=== PATIENT | female | born 1960 | race Caucasian/White ===

== ENCOUNTER → 2016-05-19 | Outpatient (CLI) | payer MEDICARE ==
[~2016-05-19] MED LIST: ACET500C PO; ALBUAER3 INH; AMBI10TA PO; BECL80AE3 INH; DIAZ10 PO; ENAL20TA PO; EPIP0.3I SQ; IPRAAER INH; LEVO50TA4 PO; LEXA20TA PO; PHEN100C PO; PRED20 PO; SIMV20TA PO; SIMV40TA PO; TRIL150T PO
== END ==
LOC: PLAB 11:19
PROVIDERS: ATTEND Psychiatry & Neurology Neurology
DX: G40.909 Epilepsy, unspecified, not intractable, without status epilepticus (principal)
CPT/HCPCS: 36415; 80177; 80185; 80186

== ENCOUNTER → 2016-06-28 | Outpatient (CLI) | payer MEDICARE ==
[2016-06-30 19:25] LABS: LEVETIRACETAM 24.4 mcg/mL (12.0 - 46.0)
== END ==
LOC: PLAB 15:09
PROVIDERS: ATTEND Psychiatry & Neurology Neurology
DX: G40.909 Epilepsy, unspecified, not intractable, without status epilepticus (principal)
CPT/HCPCS: 36415; 80177; 80185; 80186

== ENCOUNTER → 2016-10-04 | Outpatient (CLI) | payer MEDICARE | LOC: PLAB 11:32 | PROVIDERS: ATTEND Psychiatry & Neurology Neurology | DX: G40.909 Epilepsy, unspecified, not intractable, without status epilepticus (principal) | CPT/HCPCS: 36415; 80177; 80185 ==

== ENCOUNTER → 2016-12-25 | Outpatient (CLI) | payer MEDICARE | LOC: PLAB 11:45 | PROVIDERS: ATTEND Psychiatry & Neurology Neurology | DX: G40.909 Epilepsy, unspecified, not intractable, without status epilepticus (principal) | CPT/HCPCS: 36415; 80177; 80184; 80185 ==

== ENCOUNTER 2017-04-24 15:34 | Inpatient (IN) | payer MEDICARE, MEDICAID ==
[~2017-04-24] VITALS: Ht 162.6 cm; Wt 116.5 kg
[2017-04-24] VITALS (7 sets, daily range): BP systolic 121–175; BP diastolic 64–106; PULSE 103–126; RESP 16–22; TEMP 97.8–103.1; O2SAT 92–99
[2017-04-24] MEDS ORDERED: SODIUM CHLOR 0.9% 1000 ML INJ 1,000 ML IV ONE ×2 (15:47)
[2017-04-24] MEDS ORDERED: SODIUM CHLOR 0.9% 1000 ML INJ 700 ML IV ONE (15:47)
[2017-04-24] MEDS ORDERED: ACETAMINOPHEN 325 MG TAB PO ONE (16:00)
[2017-04-24] MEDS ORDERED: TETANUS/DIPHTHERIA TOXOID ADULT 0.5 ML VIAL IM ONE (16:00)
--- NOTE | 2017-04-24 16:02 | PD ---
HPI Chief Complaint: General Weakness Time Seen by Provider: 15:38 Travel History International Travel<30 days: No Contact w/Intl Traveler<30days: No Traveled to known affect area: No History of Present Illness HPI The patient is a 57-year-old female who presents emergency department via EMS for lethargy. According to EMS the patient has a one-week history of progressive symptoms including generalized weakness, myalgias, and lethargy. EMS states and route they noted the patient was tachycardic with an elevated temperature of 103. Upon arrival the patient does complain of a dry and mostly nonproductive cough, does have a history of COPD and is on oxygen at home, 4 L via nasal cannula. She also complains of a dry mouth, mild nausea, diarrhea, and body aches. The patient denies any dysuria, frequency, or urgency. She does note a fever with intermittent chills and sweats. Symptoms are moderate without any current alleviating or exacerbating factors. The patient also states she has fallen several times secondary to the weakness, fell earlier today striking the right aspect of her head and sustaining a laceration. She is unsure if there was any loss of consciousness. She also notes bruising to left arm and right arm, but denies any difficulty using the upper extremities. PFSH Past Medical History Asthma: Yes Anxiety: Yes Depression: Yes Cancer: No Cardiovascular Problems: Yes (? SMALL VALVE PROLAPSE--TAKE PROPHYLACTIC AB PRIOR TO DENTISTRY) High Cholesterol: Yes COPD: Yes Diabetes: No Diminished Hearing: No Endocrine: No Gastrointestinal Disorders: Yes (HX OF ULCER 2.5 YRS AGO, HIATAL HERNIA) Genitourinary: No Hepatitis: No Hiatal Hernia: Yes Hypertension: Yes Immune Disorder: No Musculoskeletal: Yes (ARTHRITIS) Neurologic: Yes (PSEUDO CEREBRAL TUMOR, LARGE OPTIC NERVES, BLEEDING AROUND NERVES) Psychiatric: Yes (ANXIETY/DEPRESSION/BIPOLAR) Reproductive: Yes (PARTIALLY PARALYZED RIGHT DIAPHRAGM 2013) Respiratory: Yes (COPD) Immunizations Current: No Thyroid Disease: Yes (HYPOTHYROIDISM) ?: Not Past Surgical History Abdominal Surgery: Yes (APPENDECTOMY) AICD: No Appendectomy: Yes Gynecologic Surgery: Yes (HYSTERECTOMY, SALPINGO OOPHORECTOMY) Hysterectomy: Yes Joint Replacement: No Pacemaker: No Other Surgery: Yes (" brain shunt " August 2012) Social History Alcohol Use: No Tobacco Use: No Substance Use: No Allergies-Medications (Allergen,Severity, Reaction): Coded Allergies: aspirin (Unverified Allergy, Severe, AIRWAY OBSTRUCTION, 10/31/16) citric acid (Unverified Allergy, Intermediate, Diarrhea, 10/31/16) isosorbide (Unverified Allergy, Intermediate, Diarrhea, 10/31/16) milk (Unverified Allergy, Intermediate, Diarrhea, 10/31/16) PATIENT DENIES nitroglycerin (Unverified Allergy, Intermediate, Diarrhea, 10/31/16) nitroprusside sodium (Unverified Allergy, Intermediate, Diarrhea, 10/31/16) Sulfa (Sulfonamide Antibiotics) (Unverified Allergy, Unknown, 10/31/16) PT STATES SHE TAKES DIAMOX THAT HAS SULFA IN IT WITHOUT PROBLEMS Reported Meds & Prescriptions Reported Meds & Active Scripts Active Ambien (Zolpidem Tartrate) 10 Mg Tab 10 Mg PO HS PRN Lexapro (Escitalopram Oxalate) 20 Mg Tab 20 Mg PO DAILY Valium (Diazepam) 10 Mg Tab 10 Mg PO TID PRN Trileptal (Oxcarbazepine) 150 Mg Tab 150 Mg PO BID Reported Phenytoin Extended 200 Mg Cap 200 Mg PO HS Simvastatin 40 Mg Tab 40 Mg PO HS Simvastatin 20 Mg Tab 20 Mg PO DAILY Prednisone 20 Mg Tab 20 Mg PO BID Phenytoin Extended 100 Mg Cap 100 Mg PO DIRECTED 100MG ALTERNATING WITH 200MG (2 CAPSULES) DAILY IN THE AM Levothyroxine (Levothyroxine Sodium) 50 Mcg Tab 50 Mcg PO 100MCG ALLEN Levothyroxine (Levothyroxine Sodium) 50 Mcg Tab 50 Mcg PO MOTUWETHFSA Epipen 2-Yahir Inj (Epinephrine) 0.3 Mg/0.3 Ml Pfpen 0.3 Mg SQ ONCE PRN Enalapril (Enalapril Maleate) 20 Mg Tab 20 Mg PO BID Combivent Respimat Inh (Ipratropium-Albuterol Inh) 20-100 Senior Care/Act Aero 1 Puff INH QID Qvar Inh (Beclomethasone Dipropionate) 80 Mcg/Act Aero 1 Puff INH BID Proair Hfa 8.5 GM Inh (Albuterol Sulfate) 90 Mcg/Act Aer 1 Puff INH Q6HR PRN 108 mcg/actuation Review of Systems Except as stated in HPI: all other systems reviewed are Neg General / Constitutional: Positive: Fever, Chills HENT: Positive: Headaches, No: Neck Pain Cardiovascular: No: Chest Pain or Discomfort Respiratory: Positive: Cough, Wheezing (history of COPD), No: Shortness of Breath Gastrointestinal: Positive: Nausea, Diarrhea, No: Vomiting, Abdominal Pain Genitourinary: No: Dysuria Musculoskeletal: Positive: Myalgias, Weakness Skin: No Rash Physical Exam Narrative GENERAL: Awake, somewhat lethargic 57-year-old female who appears her stated age. SKIN: Focused skin assessment warm/dry. Few small areas of ecchymosis noted on the left upper extremity posterior right upper extremity. HEAD: 3 cm transverse laceration above the right eyelid with no acute bleeding.. EYES: Pupils equal and round. 3 mm is bilateral and reactive. ENT: No nasal bleeding or discharge. Mucous membranes pink and moist. NECK: Trachea midline. No JVD. CARDIOVASCULAR: Regular, tachycardic with a heart rate of 125. RESPIRATORY: No accessory muscle use. Clear to auscultation. Breath sounds equal bilaterally. GASTROINTESTINAL: Abdomen soft, non-tender, nondistended. Obese, no guarding or rigidity. MUSCULOSKELETAL: No obvious deformities. No clubbing. No cyanosis. No edema. Back: No CVA tenderness. No visible ecchymosis of the lumbar thoracic region. NEUROLOGICAL: Awake, somewhat lethargic. Oriented to person, place, month, year , and college physics instructor. Nonfocal. PSYCHIATRIC: Appropriate mood and affect; insight and judgment normal. Data Data Last Documented VS Vital Signs Date Time Temp Pulse Resp B/P (MAP) Pulse Ox O2 Delivery O2 Flow Rate FiO2 04/24/17 16:52 97 Nasal Cannula 4.00 04/24/17 15:49 103.1 126 22 175/106 (129) Orders Orders Sepsis Workup Initiated (04/24/17 ) Electrocardiogram (04/24/17 15:47) Complete Blood Count With Diff (04/24/17 15:47) Comprehensive Metabolic Panel (04/24/17 15:47) Prothrombin Time / Inr (Pt) (04/24/17 15:47) Act Partial Throm Time (Ptt) (04/24/17 15:47) Lactic Acid Sepsis Protocol (04/24/17 15:47) Magnesium (Mg) (04/24/17 15:47) Ckmb (Isoenzyme) Profile (04/24/17 15:47) Troponin I (04/24/17 15:47) Urinalysis - C+S If Indicated (04/24/17 15:47) Influenzae A/B Antigen (04/24/17 15:47) Blood Culture (04/24/17 15:47) Chest, Single Ap (04/24/17 15:47) Blood Gas Venous (Vbg) (04/24/17 15:47) Blood Glucose (04/24/17 15:47) Ecg Monitoring (04/24/17 15:47) Iv Access Insert/Monitor (04/24/17 15:47) Cath For Specimen (04/24/17 15:47) Oximetry (04/24/17 15:47) Oxygen Administration (04/24/17 15:47) Acetaminophen (Tylenol) (04/24/17 16:00) Ct Brain W/O Iv Contrast(Rout) (04/24/17 15:47) Sodium Chlor 0.9% 1000 Ml Inj (Ns 1000 M (04/24/17 15:47) Sodium Chlor 0.9% 1000 Ml Inj (Ns 1000 M (04/24/17 15:47) Sodium Chlor 0.9% 1000 Ml Inj (Ns 1000 M (04/24/17 15:47) Tetanus/Diphtheria Tox Adult (Tetanus/Di (04/24/17 16:00) Urine Culture (04/24/17 16:15) CKMB (04/24/17 16:10) CKMB% (04/24/17 16:10) Piperacil-Tazo 4.5 Gm Premix (Zosyn 4.5 (04/24/17 17:45) Admit Order (Ed Use Only) (04/24/17 18:05) Labs Laboratory Tests Test 04/24/17 15:56 04/24/17 16:10 04/24/17 16:15 Blood Gas Puncture Site IV IN L HAND Blood Gas Patient Temperature 98.6 Venous Blood pH 7.30 Venous Blood Partial Pressure CO2 52 mmHg Venous Blood Partial Pressure O2 19 mmHg Venous Blood HCO3 25 mmol/L Venous Blood Oxygen Saturation 29 % Venous Blood Oxygen Content 5.1 Vol % Venous Blood Base Excess -1.1 mmol/L Oxygen Delivery Device NASAL CANNULA Blood Gas Liter Flow 3.5 L/M White Blood Count 19.5 TH/MM3 Red Blood Count 4.09 MIL/MM3 Hemoglobin 12.1 GM/DL Hematocrit 36.6 % Mean Corpuscular Volume 89.5 FL Mean Corpuscular Hemoglobin 29.5 PG Mean Corpuscular Hemoglobin Concent 33.0 % Red Cell Distribution Width 13.6 % Platelet Count 163 TH/MM3 Mean Platelet Volume 9.5 FL Neutrophils (%) (Auto) 85.3 % Lymphocytes (%) (Auto) 2.9 % Monocytes (%) (Auto) 11.7 % Eosinophils (%) (Auto) 0.0 % Basophils (%) (Auto) 0.1 % Neutrophils # (Auto) 16.6 TH/MM3 Lymphocytes # (Auto) 0.6 TH/MM3 Monocytes # (Auto) 2.3 TH/MM3 Eosinophils # (Auto) 0.0 TH/MM3 Basophils # (Auto) 0.0 TH/MM3 CBC Comment AUTO DIFF Differential Total Cells Counted 100 Neutrophils % (Manual) 60 % Band Neutrophils % 26 % Lymphocytes % 5 % Monocytes % 9 % Neutrophils # (Manual) 16.8 TH/MM3 Differential Comment FINAL DIFF MANUAL Dohle Bodies PRESENT Platelet Estimate NORMAL Platelet Morphology Comment ENLARGED Prothrombin Time 10.9 SEC Prothromb Time International Ratio 1.1 RATIO Activated Partial Thromboplast Time 29.9 SEC Blood Urea Nitrogen 38 MG/DL Creatinine 2.56 MG/DL Random Glucose 91 MG/DL Total Protein 7.3 GM/DL Albumin 2.4 GM/DL Calcium Level 7.8 MG/DL Magnesium Level 1.9 MG/DL Alkaline Phosphatase 117 U/L Aspartate Amino Transf (AST/SGOT) 86 U/L Alanine Aminotransferase (ALT/SGPT) 28 U/L Total Bilirubin 0.9 MG/DL Sodium Level 128 MEQ/L Potassium Level 5.8 MEQ/L Chloride Level 96 MEQ/L Carbon Dioxide Level 21.9 MEQ/L Anion Gap 10 MEQ/L Estimat Glomerular Filtration Rate 19 ML/MIN Lactic Acid Level 1.1 mmol/L Total Creatine Kinase 806 U/L Troponin I LESS THAN 0.02 NG/ML Urine Color YELLOW Urine Turbidity CLOUDY Urine pH 6.0 Urine Specific [place] 1.018 Urine Protein 300 mg/dL Urine Glucose (UA) NEG mg/dL Urine Ketones 10 mg/dL Urine Occult Blood MOD Urine Nitrite NEG Urine Bilirubin NEG Urine Urobilinogen LESS THAN 2.0 MG/DL Urine Leukocyte Esterase SMALL Urine RBC 11 /hpf Urine WBC 17 /hpf Urine WBC Clumps RARE Urine Squamous Epithelial Cells 2 /hpf Urine Bacteria MOD /hpf Microscopic Urinalysis Comment CULTURE INDICATED MDM Medical Decision Making Medical Screen Exam Complete: Yes Emergency Medical Condition: Yes Medical Record Reviewed: Yes Interpretation(s) EKG reveals sinus tachycardia with a heart rate of 125. Q wave noted in lead 3 and aVF. Laboratory Tests Test 04/24/17 15:56 04/24/17 16:10 04/24/17 16:15 Blood Gas Puncture Site IV IN L HAND Blood Gas Patient Temperature 98.6 Venous Blood pH 7.30 Venous Blood Partial Pressure CO2 52 mmHg Venous Blood Partial Pressure O2 19 mmHg Venous Blood HCO3 25 mmol/L Venous Blood Oxygen Saturation 29 % Venous Blood Oxygen Content 5.1 Vol % Venous Blood Base Excess -1.1 mmol/L Oxygen Delivery Device NASAL CANNULA Blood Gas Liter Flow 3.5 L/M White Blood Count 19.5 TH/MM3 Red Blood Count 4.09 MIL/MM3 Hemoglobin 12.1 GM/DL Hematocrit 36.6 % Mean Corpuscular Volume 89.5 FL Mean Corpuscular Hemoglobin 29.5 PG Mean Corpuscular Hemoglobin Concent 33.0 % Red Cell Distribution Width 13.6 % Platelet Count 163 TH/MM3 Mean Platelet Volume 9.5 FL Neutrophils (%) (Auto) 85.3 % Lymphocytes (%) (Auto) 2.9 % Monocytes (%) (Auto) 11.7 % Eosinophils (%) (Auto) 0.0 % Basophils (%) (Auto) 0.1 % Neutrophils # (Auto) 16.6 TH/MM3 Lymphocytes # (Auto) 0.6 TH/MM3 Monocytes # (Auto) 2.3 TH/MM3 Eosinophils # (Auto) 0.0 TH/MM3 Basophils # (Auto) 0.0 TH/MM3 CBC Comment AUTO DIFF Prothrombin Time 10.9 SEC Prothromb Time International Ratio 1.1 RATIO Activated Partial Thromboplast Time 29.9 SEC Blood Urea Nitrogen 38 MG/DL Creatinine 2.56 MG/DL Random Glucose 91 MG/DL Total Protein 7.3 GM/DL Albumin 2.4 GM/DL Calcium Level 7.8 MG/DL Magnesium Level 1.9 MG/DL Alkaline Phosphatase 117 U/L Aspartate Amino Transf (AST/SGOT) 86 U/L Alanine Aminotransferase (ALT/SGPT) 28 U/L Total Bilirubin 0.9 MG/DL Sodium Level 128 MEQ/L Potassium Level 5.8 MEQ/L Chloride Level 96 MEQ/L Carbon Dioxide Level 21.9 MEQ/L Anion Gap 10 MEQ/L Estimat Glomerular Filtration Rate 19 ML/MIN Lactic Acid Level 1.1 mmol/L Total Creatine Kinase 806 U/L Troponin I LESS THAN 0.02 NG/ML Urine Color YELLOW Urine Turbidity CLOUDY Urine pH 6.0 Urine Specific [place] 1.018 Urine Protein 300 mg/dL Urine Glucose (UA) NEG mg/dL Urine Ketones 10 mg/dL Urine Occult Blood MOD Urine Nitrite NEG Urine Bilirubin NEG Urine Urobilinogen LESS THAN 2.0 MG/DL Urine Leukocyte Esterase SMALL Urine RBC 11 /hpf Urine WBC 17 /hpf Urine WBC Clumps RARE Urine Squamous Epithelial Cells 2 /hpf Urine Bacteria MOD /hpf Microscopic Urinalysis Comment CULTURE INDICATED Last Impressions Head CT 04/24/17 1547 Signed Impressions: Service Date/Time: Monday, April 24, 2017 16:13 - CONCLUSION: No acute intracranial abnormality. oJse Moreno MD X-ray reveals stable elevation of the right hemidiaphragm. No acute abnormality or significant interval change. Differential Diagnosis Differential diagnosis includes sepsis, SIRS, UTI, pyelonephritis, pneumonia, bronchitis, influenza, bacteremia, septicemia, closed head injury, subarachnoid hemorrhage, laceration. Narrative Course IV was established, labs are drawn and sent, and the patient was placed on cardiac telemetry monitoring and continuous pulse oximetry monitoring. EKG was ordered and interpreted. CT the brain was obtained. The patient's laceration was repaired by the mid-level provider, please refer to the procedure no. Blood culture and lactic gas were sent to lab. The patient received IV fluids and Tylenol. CT the brain is negative. White count is elevated at 19.5. Creatinine is elevated greater than 2.5, I reviewed the EMR, the patient's baseline creatinine is normal, less than 1. Chest x-rays unremarkable. The patient's UA is positive for RBCs, WBCs, and bacteria. It appears the patient has sepsis secondary to UTI meets sepsis criteria. Potassium is elevated at 5.8 , however, there was moderate hemolysis, do not believe this is inaccurate potassium. The patient did received 3 L of IV fluids and Zosyn intravenously for sepsis secondary to UTI. The patient's heart rate did improve, came down to 110 with IV fluids. The patient will be omitted to the on-call medical service. I discussed the patient with the residents who agreed with admission. Sepsis Criteria SIRS Criteria (2 or more): Temp > 100.9 or < 96.8, Heart rate over 90, WBC > 65354, < 4000 or > 10% bands Sepsis Criteria (SIRS+source): Infect source susp/known Severe Sepsis (+one): Acute Oliguria/Renal Failure Criteria Outcome: Meets severe sepsis criteria Physician Communication Physician Communication The on-call medical service was paged for admission. I discussed the patient with the residents who agreed with admission. Diagnosis Primary Impression: Sepsis Qualified Codes: A41.9 - Sepsis, unspecified organism Additional Impressions: UTI (urinary tract infection) Qualified Codes: N39.0 - Urinary tract infection, site not specified; R31.9 - Hematuria, unspecified Acute renal failure Qualified Codes: N17.9 - Acute kidney failure, unspecified Admitting Information Admitting Physician Requests: Admit Condition: Stable Mervin Wall MD Apr 24, 2017 16:02
--- NOTE | 2017-04-24 16:39 | RADRPT ---
EXAM DATE/TIME: 04/24/2017 16:13 [facility] COMPARISON: CT BRAIN W/O CONTRAST, December 15, 2013, 10:57. INDICATIONS : Head pain due to fall on right side. RADIATION DOSE: 56.35 CTDIvol (mGy) MEDICAL HISTORY : Cardiovascular disease. Hypertension. Chronic obstructive pulmonary disease. SURGICAL HISTORY : Hysterectomy. Shunt. ENCOUNTER: Initial ACUITY: 1 day PAIN SCALE: 7/10 LOCATION: Right cranial TECHNIQUE: Multiple contiguous axial images were obtained of the head. Using automated exposure control and adj ustment of the mA and/or kV according to patient size, radiation dose was kept as low as reasonably a chievable to obtain optimal diagnostic quality images. DICOM format image data is available electro nically for review and comparison. FINDINGS: CEREBRUM: The right sided ventriculostomy shunt is stable in position from the previous examination. Its tip cr osses midline and is located in the expected region of the left lateral ventricle. The ventricles are normal for age. No evidence of midline shift, mass lesion, hemorrhage or acute infarction. No extr a-axial fluid collections are seen. POSTERIOR FOSSA: The cerebellum and brainstem are intact. The 4th ventricle is midline. The cerebellopontine angle i s unremarkable. EXTRACRANIAL: The visualized portion of the orbits is intact. SKULL: The calvaria is intact. No evidence of skull fracture. CONCLUSION: No acute intracranial abnormality. Jose Moreno MD on April 24, 2017 at 16:30 Board Certified Radiologist. This report was verified electronically.
[2017-04-24 16:56] LABS: AUTOMATED NEUTROPHIL # 16.6 TH/MM3 (1.8-7.7); BASOPHIL % 0.1 % (0.0-2.0); HEMATOCRIT 36.6 % (35.0-46.0); HEMOGLOBIN 12.1 GM/DL (11.6-15.3); LYMPH % 2.9 % (9.0-44.0); LYMPHOCYTE # 0.6 TH/MM3 (1.0-4.8); MEAN CELL VOLUME 89.5 FL (80.0-100.0); MEAN CORPUSCULAR HEMOGLOBIN 29.5 PG (27.0-34.0); MEAN PLATELET VOLUME 9.5 FL (7.0-11.0); MONO % 11.7 % (0.0-8.0); MONOCYTE # 2.3 TH/MM3 (0-0.9); NEUT % 85.3 % (16.0-70.0); PLATELET COUNT 163 TH/MM3 (150-450); RED BLOOD COUNT 4.09 MIL/MM3 (4.00-5.30); RED CELL DISTRIBUTION WIDTH 13.6 % (11.6-17.2); WHITE BLOOD COUNT 19.5 TH/MM3 (4.0-11.0)
[2017-04-24 17:07] LABS: INTERNATIONAL NORMALIZED RATIO 1.1 RATIO; PROTHROMBIN TIME - PATIENT 10.9 SEC (9.8-11.6)
[2017-04-24 17:10] LABS: BACTERIA, URINE MOD /hpf; BLOOD, URINE MOD (NEG); GLUCOSE,URINE NEG (NEG); KETONE, URINE 10 mg/dL (NEG); NITRITE,URINE NEG (NEG); SQUAMOUS EPITHELIAL CELL URINE 2 /hpf (0-5); URINE COLOR YELLOW (YELLW/STRAW); URINE LEUKOCYTE ESTERASE SMALL (NEG); WHITE BLOOD CELL CLUMPS RARE
[2017-04-24 17:12] LABS: ALBUMIN 2.4 GM/DL (3.4-5.0); ALT (GPT) 28 U/L (10-53); AST (GOT) 86 U/L (15-37); BICARBONATE 21.9 MEQ/L (21.0-32.0); BLOOD UREA NITROGEN 38 MG/DL (7-18); CALCIUM 7.8 MG/DL (8.5-10.1); CHLORIDE 96 MEQ/L (98-107); CREATININE 2.56 MG/DL (0.50-1.00); GLOMERULAR FILTRATION RATE 19 ML/MIN (>89); GLUCOSE,RANDOM 91 MG/DL (74-106); MAGNESIUM 1.9 MG/DL (1.5-2.5); SODIUM (NA) 128 MEQ/L (136-145)
--- NOTE | 2017-04-24 17:15 | RADRPT ---
EXAM DATE/TIME: 04/24/2017 16:31 [facility] COMPARISON: CHEST PA & LAT, January 29, 2015, 12:18. INDICATIONS : Short of breath. MEDICAL HISTORY : Cardiovascular disease. Hypertension. Chronic obstructive pulmonary disease. SURGICAL HISTORY : None. ENCOUNTER: Initial ACUITY: 1 day PAIN SCORE: 0/10 LOCATION: Bilateral chest FINDINGS: Redemonstration of elevation of the right hemidiaphragm. There is a right sided [employer] shunt tubing in pl [facility]. No new focal pleural or precordial opacities. Cardiomediastinal contours are within normal limit s. Remainder of the exam is unchanged. CONCLUSION: 1. Stable elevation of the right hemidiaphragm. 2. No acute abnormality or significant interval change. Edy Mendez MD on April 24, 2017 at 17:12 Board Certified Radiologist. This report was verified electronically.
[2017-04-24 17:16] LABS: BILIRUBIN, URINE NEG (NEG)
[2017-04-24 17:21] LABS: ALKALINE PHOSPHATASE 117 U/L (45-117); TOTAL BILIRUBIN ADULT 0.9 MG/DL (0.2-1.0); TOTAL PROTEIN 7.3 GM/DL (6.4-8.2); TROPONIN I LESS THAN 0.02 NG/ML (0.02-0.05)
--- NOTE | 2017-04-24 17:36 | PD ---
Physical Exam Date Seen by Provider: Apr 24, 2017 Time Seen by Provider: 17:34 Data Data Last Documented VS Vital Signs Date Time Temp Pulse Resp B/P (MAP) Pulse Ox O2 Delivery O2 Flow Rate FiO2 04/24/17 16:52 97 Nasal Cannula 4.00 04/24/17 15:49 103.1 126 22 175/106 (129) Orders Orders Sepsis Workup Initiated (04/24/17 ) Electrocardiogram (04/24/17 15:47) Complete Blood Count With Diff (04/24/17 15:47) Comprehensive Metabolic Panel (04/24/17 15:47) Prothrombin Time / Inr (Pt) (04/24/17 15:47) Act Partial Throm Time (Ptt) (04/24/17 15:47) Lactic Acid Sepsis Protocol (04/24/17 15:47) Magnesium (Mg) (04/24/17 15:47) Ckmb (Isoenzyme) Profile (04/24/17 15:47) Troponin I (04/24/17 15:47) Urinalysis - C+S If Indicated (04/24/17 15:47) Influenzae A/B Antigen (04/24/17 15:47) Blood Culture (04/24/17 15:47) Chest, Single Ap (04/24/17 15:47) Blood Gas Venous (Vbg) (04/24/17 15:47) Blood Glucose (04/24/17 15:47) Ecg Monitoring (04/24/17 15:47) Iv Access Insert/Monitor (04/24/17 15:47) Cath For Specimen (04/24/17 15:47) Oximetry (04/24/17 15:47) Oxygen Administration (04/24/17 15:47) Acetaminophen (Tylenol) (04/24/17 16:00) Ct Brain W/O Iv Contrast(Rout) (04/24/17 15:47) Sodium Chlor 0.9% 1000 Ml Inj (Ns 1000 M (04/24/17 15:47) Sodium Chlor 0.9% 1000 Ml Inj (Ns 1000 M (04/24/17 15:47) Sodium Chlor 0.9% 1000 Ml Inj (Ns 1000 M (04/24/17 15:47) Tetanus/Diphtheria Tox Adult (Tetanus/Di (04/24/17 16:00) Urine Culture (04/24/17 16:15) CKMB (04/24/17 16:10) CKMB% (04/24/17 16:10) Labs Laboratory Tests Test 04/24/17 15:56 04/24/17 16:10 04/24/17 16:15 Blood Gas Puncture Site IV IN L HAND Blood Gas Patient Temperature 98.6 Venous Blood pH 7.30 Venous Blood Partial Pressure CO2 52 mmHg Venous Blood Partial Pressure O2 19 mmHg Venous Blood HCO3 25 mmol/L Venous Blood Oxygen Saturation 29 % Venous Blood Oxygen Content 5.1 Vol % Venous Blood Base Excess -1.1 mmol/L Oxygen Delivery Device NASAL CANNULA Blood Gas Liter Flow 3.5 L/M White Blood Count 19.5 TH/MM3 Red Blood Count 4.09 MIL/MM3 Hemoglobin 12.1 GM/DL Hematocrit 36.6 % Mean Corpuscular Volume 89.5 FL Mean Corpuscular Hemoglobin 29.5 PG Mean Corpuscular Hemoglobin Concent 33.0 % Red Cell Distribution Width 13.6 % Platelet Count 163 TH/MM3 Mean Platelet Volume 9.5 FL Neutrophils (%) (Auto) 85.3 % Lymphocytes (%) (Auto) 2.9 % Monocytes (%) (Auto) 11.7 % Eosinophils (%) (Auto) 0.0 % Basophils (%) (Auto) 0.1 % Neutrophils # (Auto) 16.6 TH/MM3 Lymphocytes # (Auto) 0.6 TH/MM3 Monocytes # (Auto) 2.3 TH/MM3 Eosinophils # (Auto) 0.0 TH/MM3 Basophils # (Auto) 0.0 TH/MM3 CBC Comment AUTO DIFF Prothrombin Time 10.9 SEC Prothromb Time International Ratio 1.1 RATIO Activated Partial Thromboplast Time 29.9 SEC Blood Urea Nitrogen 38 MG/DL Creatinine 2.56 MG/DL Random Glucose 91 MG/DL Total Protein 7.3 GM/DL Albumin 2.4 GM/DL Calcium Level 7.8 MG/DL Magnesium Level 1.9 MG/DL Alkaline Phosphatase 117 U/L Aspartate Amino Transf (AST/SGOT) 86 U/L Alanine Aminotransferase (ALT/SGPT) 28 U/L Total Bilirubin 0.9 MG/DL Sodium Level 128 MEQ/L Potassium Level 5.8 MEQ/L Chloride Level 96 MEQ/L Carbon Dioxide Level 21.9 MEQ/L Anion Gap 10 MEQ/L Estimat Glomerular Filtration Rate 19 ML/MIN Lactic Acid Level 1.1 mmol/L Total Creatine Kinase 806 U/L Troponin I LESS THAN 0.02 NG/ML Urine Color YELLOW Urine Turbidity CLOUDY Urine pH 6.0 Urine Specific [place] 1.018 Urine Protein 300 mg/dL Urine Glucose (UA) NEG mg/dL Urine Ketones 10 mg/dL Urine Occult Blood MOD Urine Nitrite NEG Urine Bilirubin NEG Urine Urobilinogen LESS THAN 2.0 MG/DL Urine Leukocyte Esterase SMALL Urine RBC 11 /hpf Urine WBC 17 /hpf Urine WBC Clumps RARE Urine Squamous Epithelial Cells 2 /hpf Urine Bacteria MOD /hpf Microscopic Urinalysis Comment CULTURE INDICATED MDM Supervised Visit with EDDIE: No Narrative Course I was asked to evaluate this patient's right eyebrow laceration. The patient was initially seen by Dr. Wall. Please see his note for full H &P. On my exam there is a 2 cm stellate laceration just lateral to the right eyebrow. Laceration repair was performed. Please see my procedure note for details. Dr. Wall retains care of this patient. Please see his note for disposition. Procedures Procedure Narrative LACERATION LOCATION: Lateral to the right eyebrow LENGTH: 2 cm T shaped NUMBER OF STITCHES/SADIQ: 4 REPAIR: The area of the laceration was prepped with Betadine and sterilely draped. The laceration was infiltrated with 1% lidocaine. The wound was copiously irrigated and explored without evidence of foreign body, tendon injury or neurovascular injury. The wound was closed using 5-0 Ethilon. This was a single layer repair. A sterile dressing was applied. The patient was advised to keep the dressing clean and dry. Patient tolerated the procedure well. Condition: Stable Veronica Hoff Apr 24, 2017 17:36
[2017-04-24] MEDS ORDERED: PIPERACIL-TAZO 4.5 GM PREMIX 100 ML IV ONE (17:45)
[2017-04-24 17:51] LABS: BANDS 26 % (0-6); LYMPHOCYTES 5 % (9-44); MONOCYTES 9 % (0-8); NEUTROPHIL # MANUAL DIFF 16.8 TH/MM3 (1.8-7.7); POLYS (SEG NEUTROPHILS) 60 % (16-70)
[2017-04-24 17:53] LABS: DOHLE BODIES PRESENT (NONE SEEN)
[2017-04-24] MEDS ORDERED: PHEN200C3 PO (18:00)
--- NOTE | 2017-04-24 18:07 | HHI.HP ---
[facility] Service Family Medicine Primary Care Physician Raymond Melton MD Admission Diagnosis sepsis, UTI, acute renal failure, leukocytosis Diagnoses: International Travel<30 Days: No Contact w/Intl Traveler<30days: No Known Affected Area: No History of Present Illness 57 yr old F w/ PMHx of status epilepticus and pseudotumor cerebri s/p WOOL WASHER shunt placement 2012 presents via EMS for lethargy. Patient states that she started "getting sick" last Sunday. She has been weak and has been falling 3-4 times/ day. It takes her 20 minutes to half an hour to get up. She is only able to walk 20 feet down the yoo before feeling weak and falling again. She reports that she "felt her legs collapsing and tipping backwards". Her neighbor came to check up on her last Sunday. Neighbor called the paramedics because patient was lying on the floor on her back and was unable to assist her up. This morning she fell and "landed 7 feet across the room and hit her right eye on the television console." Her right eye was bleeding and she used a wet cloth to slow the blood. She states that she "feels like she tore most of the muscles in her right shoulder." She is able to move her right fingers but experiences pain when arm is lifted above her head. She reports that she thought she was in control after the fall, however, as she sat rested in her recliner she was unable to get herself up. She contacted her primary care doctor. Her doctor sent over the home health nurse. After evaluation, nurse called EMS to transfer her to the ED. She endorses fevers of 103.7 orally since last Sunday. She took Tylenol TID w/ improvement. She reports 2 episodes of loose stools this AM. She is not sure of LOC during falls. Falls were not witnessed. She reports her last sizure was in 2012 during WOOL WASHER shunt placement. She is compliant with her seizure medications. She denies urinary incontinence, biting tongue, dysuria, hematuria, CP, SOB, URI symptoms, abdominal pain, and N/V. (Leni Gaytan MD R1) Review of Systems Constitutional: COMPLAINS OF: Fever, DENIES: Weight loss, Dizziness, Change in appetite Eyes: DENIES: Blurred vision Ears, nose, mouth, throat: DENIES: Ear Pain, Running Nose, Epistaxis Respiratory: DENIES: Cough, Shortness of breath Cardiovascular: DENIES: Chest pain Gastrointestinal: DENIES: Abdominal pain, Nausea, Vomiting Genitourinary: DENIES: Dysuria Musculoskeletal: DENIES: Muscle aches Integumentary: DENIES: Rash Hematologic/lymphatic: COMPLAINS OF: Bruising Neurologic: DENIES: Headache (Leni Gaytan MD R1) Past Family Social History Past Medical History Past Medical History Pseudotumor cerebri status post WOOL WASHER shunt placement 2013 History of status epilepticus Hypertension Hyperlipidemia Hypothyroidism Asthma Chronic obstructive pulmonary disease Bipolar disorder Depression Anxiety Insomnia Hx of collasped and paralyzed right lung on home 4.5 O2 NC , 5 O2 NC q6h on exertion Past Surgical History Past Surgical History Appendectomy Hysterectomy Salpingo-oophorectomy Left rotator cuff surgery Right thumb surgery WOOL WASHER shunt placed (Leni Gaytan MD R1) Allergies: Coded Allergies: aspirin (Unverified Allergy, Severe, AIRWAY OBSTRUCTION, 10/31/16) citric acid (Unverified Allergy, Intermediate, Diarrhea, 10/31/16) isosorbide (Unverified Allergy, Intermediate, Diarrhea, 10/31/16) milk (Unverified Allergy, Intermediate, Diarrhea, 10/31/16) PATIENT DENIES nitroglycerin (Unverified Allergy, Intermediate, Diarrhea, 10/31/16) nitroprusside sodium (Unverified Allergy, Intermediate, Diarrhea, 10/31/16) Sulfa (Sulfonamide Antibiotics) (Unverified Allergy, Unknown, 10/31/16) PT STATES SHE TAKES DIAMOX THAT HAS SULFA IN IT WITHOUT PROBLEMS Family History Family History Father had leukemia and mother has pancreatic cancer. Social History Social History Has Roommate, does not currently live there, has home health nurse 1/week, neighbor checks up on her 1-2/week Disabled Never Smoker Denies alcohol and illicit drug use 2 cats (Leni Gaytan MD R1) Physical Exam Vital Signs Vital Signs Date Time Temp Pulse Resp B/P (MAP) Pulse Ox O2 Delivery O2 Flow Rate FiO2 04/24/17 16:52 97 Nasal Cannula 4.00 04/24/17 15:55 98 Nasal Cannula 4.00 04/24/17 15:55 98 Nasal Cannula 4.00 04/24/17 15:49 103.1 126 22 175/106 (538) 92 Physical Exam GENERAL: obese F lying in bed, in NAD SKIN: small bruise on right upper eye, few area of ecchymosis on upper extremities HEAD: right eyelid covered in gauze bandage, per ED note, 3 cm transverse laceration above right eyelid with no acute bleeding EYES: Pupils equal round and reactive. Extraocular motions intact. No scleral icterus. No injection or drainage. ENT: Nose without bleeding, purulent drainage or septal hematoma. Throat without erythema, tonsillar hypertrophy or exudate. Uvula midline. Airway patent. NECK: Trachea midline. No JVD or lymphadenopathy. Supple, nontender, no meningeal signs. CARDIOVASCULAR: Regular rate and rhythm without murmurs, gallops, or rubs. RESPIRATORY: Hard to auscultate due to body habitus GASTROINTESTINAL: Abdomen soft, non-tender, nondistended. No hepato-splenomegaly , or palpable masses. No guarding. MUSCULOSKELETAL: Asymmetrical shoulders. Right shoulder tender to palpation. Full ROM in upper extremities. Sensation intact b/l. 2+ pulses. Extremities without clubbing, cyanosis, or edema. No joint tenderness, effusion, or edema noted. No calf tenderness. Negative Homans sign bilaterally. NEUROLOGICAL: Awake and alert, oriented x 3. Cranial nerves II through XII intact. Motor and sensory grossly within normal limits. Five out of 5 muscle strength in all muscle groups. Normal speech. Laboratory Laboratory Tests Test 04/24/17 15:56 04/24/17 16:10 04/24/17 16:15 Blood Gas Puncture Site IV IN L HAND Blood Gas Patient Temperature 98.6 Venous Blood pH 7.30 Venous Blood Partial Pressure CO2 52 Venous Blood Partial Pressure O2 19 Venous Blood HCO3 25 Venous Blood Oxygen Saturation 29 Venous Blood Oxygen Content 5.1 Venous Blood Base Excess -1.1 Oxygen Delivery Device NASAL CANNULA Blood Gas Liter Flow 3.5 White Blood Count 19.5 Red Blood Count 4.09 Hemoglobin 12.1 Hematocrit 36.6 Mean Corpuscular Volume 89.5 Mean Corpuscular Hemoglobin 29.5 Mean Corpuscular Hemoglobin Concent 33.0 Red Cell Distribution Width 13.6 Platelet Count 163 Mean Platelet Volume 9.5 Neutrophils (%) (Auto) 85.3 Lymphocytes (%) (Auto) 2.9 Monocytes (%) (Auto) 11.7 Eosinophils (%) (Auto) 0.0 Basophils (%) (Auto) 0.1 Neutrophils # (Auto) 16.6 Lymphocytes # (Auto) 0.6 Monocytes # (Auto) 2.3 Eosinophils # (Auto) 0.0 Basophils # (Auto) 0.0 CBC Comment AUTO DIFF Differential Total Cells Counted 100 Neutrophils % (Manual) 60 Band Neutrophils % 26 Lymphocytes % 5 Monocytes % 9 Neutrophils # (Manual) 16.8 Differential Comment FINAL DIFF MANUAL Dohle Bodies PRESENT Platelet Estimate NORMAL Platelet Morphology Comment ENLARGED Prothrombin Time 10.9 Prothromb Time International Ratio 1.1 Activated Partial Thromboplast Time 29.9 Blood Urea Nitrogen 38 Creatinine 2.56 Random Glucose 91 Total Protein 7.3 Albumin 2.4 Calcium Level 7.8 Magnesium Level 1.9 Alkaline Phosphatase 117 Aspartate Amino Transf (AST/SGOT) 86 Alanine Aminotransferase (ALT/SGPT) 28 Total Bilirubin 0.9 Sodium Level 128 Potassium Level 5.8 Chloride Level 96 Carbon Dioxide Level 21.9 Anion Gap 10 Estimat Glomerular Filtration Rate 19 Lactic Acid Level 1.1 Total Creatine Kinase 806 Troponin I LESS THAN 0.02 Urine Color YELLOW Urine Turbidity CLOUDY Urine pH 6.0 Urine Specific [place] 1.018 Urine Protein 300 Urine Glucose (UA) NEG Urine Ketones 10 Urine Occult Blood MOD Urine Nitrite NEG Urine Bilirubin NEG Urine Urobilinogen LESS THAN 2.0 Urine Leukocyte Esterase SMALL Urine RBC 11 Urine WBC 17 Urine WBC Clumps RARE Urine Squamous Epithelial Cells 2 Urine Bacteria MOD Microscopic Urinalysis Comment CULTURE INDICATED Date/Time Source Procedure Growth Status 04/24/17 16:25 Blood Peripheral Aerobic Blood Culture Pending Received 04/24/17 16:25 Blood Peripheral Anaerobic Blood Culture Pending Received 04/24/17 16:00 Nasal Aspirate Influenza Types A,B Antigen (CRISTAL) - Final NEGATIVE FOR FLU A AND B ANTIGEN.... Complete 04/24/17 16:15 Urine Catheterized Urine Urine Culture Pending Received (Leni Gaytan MD R1) Result Diagram: 04/24/17 1610 04/24/17 1610 Imaging Last Impressions Head CT 04/24/17 1547 Signed Impressions: Service Date/Time: Monday, April 24, 2017 16:13 - CONCLUSION: No acute intracranial abnormality. Jose Moreno MD Chest X-Ray 04/24/17 1547 Signed Impressions: Service Date/Time: Monday, April 24, 2017 16:31 - CONCLUSION: 1. Stable elevation of the right hemidiaphragm. 2. No acute abnormality or significant interval change. Edy Mendez MD (Leni Gaytan MD R1) Caprini VTE Risk Assessment Caprini VTE Risk Assessment: Mod/High Risk (score >= 2) Caprini Risk Assessment Model Point Value = 1 Point Value = 2 Point Value = 3 Point Value = 5 Age 41-60 Minor surgery BMI > 25 kg/m2 Swollen legs Varicose veins or History of unexplained or recurrent spontaneous Oral contraceptives or hormone replacement Sepsis (< 1 month) Serious lung disease, including pneumonia (< 1 month) Abnormal pulmonary function Acute myocardial infarction Congestive heart failure (< 1 month) History of inflammatory bowel disease Medical patient at bed rest Age 61-74 Arthroscopic surgery Major open surgery (> 45 min) Laparoscopic surgery (> 45 min) Malignancy Confined to bed (> 72 hours) Immobilizing plaster cast Central venous access Age >= 75 History of VTE Family history of VTE Factor V Leiden Prothrombin [id number] Lupus anticoagulant Anticardiolipin antibodies Elevated serum homocysteine Heparin-induced thrombocytopenia Other congenital or acquired thrombophilia Stroke (< 1 month) Elective arthroplasty Hip, pelvis, or leg fracture Acute spinal cord injury (< 1 month) Prophylaxis Regimen Total Risk Factor Score Risk Level Prophylaxis Regimen 0-1 Low Early ambulation 2 Moderate Order ONE of the following: *Sequential Compression Device (SCD) *Heparin 5000 units SQ BID 3-4 Higher Order ONE of the following medications: *Heparin 5000 units SQ TID *Enoxaparin/Lovenox 40 mg SQ daily (WT < 150 kg, CrCl > 30 mL/min) *Enoxaparin/Lovenox 30 mg SQ daily (WT < 150 kg, CrCl > 10-29 mL/min) *Enoxaparin/Lovenox 30 mg SQ BID (WT < 150 kg, CrCl > 30 mL/min) AND/OR *Sequential Compression Device (SCD) 5 or more Highest Order ONE of the following medications: *Heparin 5000 units SQ TID (Preferred with Epidurals) *Enoxaparin/Lovenox 40 mg SQ daily (WT < 150 kg, CrCl > 30 mL/min) *Enoxaparin/Lovenox 30 mg SQ daily (WT < 150 kg, CrCl > 10-29 mL/min) *Enoxaparin/Lovenox 30 mg SQ BID (WT < 150 kg, CrCl > 30 mL/min) AND *Sequential Compression Device (SCD) (Leni Gaytan MD R1) Assessment and Plan Assessment and Plan 57 yr old F w/ PMHx of status epilepticus and pseudotumor cerebri s/p WOOL WASHER shunt placement 2013 presents via EMS for lethargy. Code Status Full Code Discussed Condition With Dr. Joseph (Leni Gaytan MD R1) Attending Attestation THIS CASE WAS DISCUSSED WITH THE RESIDENT PHYSICIANS. I HAVE REVIEWED THE RECORD AND AGREE WITH THE ABOVE NOTE AND PLAN OF CARE WAS DISCUSSED. I HAVE AUTHORIZED THE ORDER FOR ADMISSION TO AN IN-PATIENT STATUS. (Adrian Cruz MD) Problem List: (1) Sepsis secondary to UTI ICD Codes: A41.9 - Sepsis, unspecified organism; N39.0 - Urinary tract infection, site not specified Plan: Patient met sepsis criteria upon admission due to fever of 103.1, tachycardia, and leukocytosis with known source of UTI. -WBC elevated at 19.5 -Lactic acid at 1.1 -UA demonstrates moderate occult blood, ketones, small leukocyte esterase, RBC, WBC >10, moderate bacteria -Urine Culture pending -Blood Culture pending x2 -Continue Zosyn 3.375 Gm IV q6hr -NS 160mls/hr, s/p 1.7 L bolus given in ED -Tylenol 650mg PO q4h PRN fever (2) Acute renal failure ICD Codes: N17.9 - Acute kidney failure, unspecified Status: Acute Plan: Cr elevated at 2.56, baseline <1 upon chart review BUN elevated at 38 Na decreased at 128 K+ elevated at 5.8 Continue with IV fluids NS 190mls/hr Avoid nephrotoxic agents Repeat BMP, continue to monitor electrolytes (3) Chronic respiratory failure ICD Codes: J96.10 - Chronic respiratory failure, unspecified whether with hypoxia or hypercapnia Status: Acute Plan: On home 4.5L NC Continue home Qvar 80mcg inh and prdnisone 20mg PO daily Duoneb q4h PRN SOB/ Wheezing (4) History of seizures ICD Codes: Z87.898 - History of seizure Status: Acute Plan: Last seizure in 2012 after WOOL WASHER shut placed Continue home Dilantin 200mg PO HS, 100mg PO daily Continue home trileptal 150mg PO bid Phenytoin levels 8.0 (5) Right shoulder pain ICD Codes: M25.511 - Pain in right shoulder Plan: R shoulder X-ray negative for fracture or dislocation Pain most likely MSK related (6) Right eyelid laceration ICD Codes: S01.111A - Laceration without foreign body of right eyelid and periocular area, initial encounter Plan: Laceration repaired by ED physician. (7) Hypothyroidism ICD Codes: E03.9 - Hypothyroidism Status: Chronic Plan: -continue home levothyroxine 50mcg (,,Th, F,Sun), 200mcg (Sun, Sun) (8) Hyperlipidemia ICD Codes: E78.5 - Hyperlipidemia Status: Chronic Plan: Continue home Pravastatin 80mg PO hs (9) Hypertension ICD Codes: I10 - Hypertension Status: Chronic Plan: Held home Enalapril due to RISA (10) Depression ICD Codes: F32.9 - Major depressive disorder, single episode, unspecified Plan: Continue home Lexapro 20mg PO daily (11) Nutrition, metabolism, and development symptoms ICD Codes: R63.8 - Other symptoms and signs concerning food and fluid intake Plan: Diet: Regular Fluids: NS 190mls/hr Electrolytes: monitor vitals q4h, monitor I & Os DVT ppx: heparin 5000 units q12hr PT requested (Leni Gaytan MD R1) Physician Certification 2 Midnight Certification Type: Admission for Inpatient Services Order for Inpatient Services The services are ordered in accordance with Medicare regulations or non- Medicare payer requirements, as applicable. In the case of services not specified as inpatient-only, they are appropriately provided as inpatient services in accordance with the 2-midnight benchmark. Estimated LOS (days): 2 2 days is the estimated time the patient will need to remain in the hospital, assuming treatment plan goals are met and no additional complications. Post-Hospital Plan: Home (Leni Gaytan MD R1) Problem Qualifiers (1) Acute renal failure: Qualified Codes: N17.9 - Acute kidney failure, unspecified Leni Gaytan MD R1 Apr 24, 2017 18:07 Adrian Cruz MD Apr 25, 2017 10:55
[2017-04-24] MEDS ORDERED: SODIUM CHLORIDE 0.9% FLUSH 10 ML FLUSH IV FLUSH PRN (18:45)
[2017-04-24] MEDS ORDERED: BISACODYL 10 MG SUPP RECTAL PRN (18:45)
[2017-04-24] MEDS ORDERED: LACTULOSE SYRUP 20 GM/30 ML CUP PO PRN (18:45)
[2017-04-24] MEDS ORDERED: NALOXONE HCL 0.4 MG/ML AMP IV PUSH PRN (18:45)
[2017-04-24] MEDS ORDERED: RESP: ALBUTEROL 2.5 MG/IPRATROPIUM 0.5 MG NEB (PRN) INH (18:45)
[2017-04-24] MEDS ORDERED: SENNOSIDES 8.6 MG TAB PO PRN (18:45)
[2017-04-24] MEDS ORDERED: ONDANSETRON HCL 4 MG/2 ML VIAL IVP PRN (18:45)
[2017-04-24] MEDS ORDERED: MAGNESIUM HYDROXIDE SUSP 30 ML CUP PO PRN (18:45)
--- NOTE | 2017-04-24 19:59 | RADRPT ---
EXAM DATE/TIME: 04/24/2017 19:35 [facility] COMPARISON: CHEST SINGLE AP, April 24, 2017, 16:31. INDICATIONS : Pain in right shoulder. Fall. MEDICAL HISTORY : None. SURGICAL HISTORY : None. ENCOUNTER: Initial ACUITY: 1 day PAIN SCORE: 0/10 LOCATION: Bilateral shoulder FINDINGS: Limited examination. However, definite acute bony fracture or joint dislocation. There is good alignm ent at the a.c. joint. The soft tissues are unremarkable. There is good alignment of the right should er on patient's recent chest x-ray. CONCLUSION: No definite acute bony fracture or joint dislocation. Adrian Encarnacion MD on April 24, 2017 at 19:54 Board Certified Radiologist. This report was verified electronically.
[2017-04-24] MEDS ORDERED: PHENYTOIN SODIUM 100 MG CAP PO SCH (21:00)
[2017-04-24] MEDS ORDERED: DOCUSATE SODIUM 50 MG/SENNA 8.6 MG TAB PO SCH (21:00)
[2017-04-24] MEDS: BECLOMETHASONE DIPROPIONATE 80 MCG/ACT 8.7 GM INHALER INH SCH (21:00)
[2017-04-24] MEDS: RESP: ALBUTEROL 2.5 MG/IPRATROPIUM 0.5 MG NEB (PRN) NEB (21:49)
[2017-04-24] MEDS: SODIUM CHLOR 0.9% 1000 ML INJ 1,000 ML IV SCH (22:32)
[2017-04-24] MEDS: HEPARIN SODIUM - SQ 10,000 UNITS/ML VIAL SQ SCH (22:38)
[2017-04-24] MEDS: OXcarbazepine 150 MG TAB PO SCH (22:38)
[2017-04-24] MEDS: ACETAMINOPHEN 325 MG TAB PO PRN (22:39)
[2017-04-24] MEDS: PRAVASTATIN SOD 80 MG TAB PO SCH (22:39)
[2017-04-24] MEDS: SODIUM CHLORIDE 0.9% FLUSH 10 ML FLUSH IV FLUSH SCH (22:39)
[2017-04-24] MEDS ORDERED: cloNIDine HCL 0.1 MG TAB PO PRN (23:00)
[2017-04-25] VITALS (12 sets, daily range): BP systolic 116–157; BP diastolic 60–89; PULSE 74–109; RESP 18–20; TEMP 97.8–100.1; O2SAT 91–100
[2017-04-25] MEDS: RESP: ALBUTEROL 2.5 MG/IPRATROPIUM 0.5 MG NEB (PRN) NEB ×2 (01:13→08:28)
[2017-04-25] MEDS: PIPERACIL-TAZO 3.375 GM PREMIX 50 ML IV SCH ×4 (01:40→18:00)
[2017-04-25 02:44] LABS: AUTOMATED NEUTROPHIL # 12.9 TH/MM3 (1.8-7.7); BASOPHIL % 0.2 % (0.0-2.0); EOSINOPHIL % 0.1 % (0.0-4.0); HEMATOCRIT 33.1 % (35.0-46.0); HEMOGLOBIN 11.1 GM/DL (11.6-15.3); LYMPH % 3.2 % (9.0-44.0); LYMPHOCYTE # 0.5 TH/MM3 (1.0-4.8); MEAN CELL VOLUME 89.6 FL (80.0-100.0); MEAN CORPUSCULAR HGB CONC 33.5 % (32.0-36.0); MEAN PLATELET VOLUME 9.7 FL (7.0-11.0); MONO % 9.3 % (0.0-8.0); MONOCYTE # 1.4 TH/MM3 (0-0.9); NEUT % 87.2 % (16.0-70.0); PLATELET COUNT 133 TH/MM3 (150-450); RED CELL DISTRIBUTION WIDTH 13.5 % (11.6-17.2); WHITE BLOOD COUNT 14.8 TH/MM3 (4.0-11.0)
[2017-04-25 02:46] LABS: ALBUMIN 2.4 GM/DL (3.4-5.0); ALT (GPT) 23 U/L (10-53); AST (GOT) 57 U/L (15-37); BICARBONATE 22.2 MEQ/L (21.0-32.0); BLOOD UREA NITROGEN 40 MG/DL (7-18); CALCIUM 7.5 MG/DL (8.5-10.1); CHLORIDE 100 MEQ/L (98-107); CREATININE 2.61 MG/DL (0.50-1.00); GLOMERULAR FILTRATION RATE 19 ML/MIN (>89); GLUCOSE,RANDOM 106 MG/DL (74-106); SODIUM (NA) 132 MEQ/L (136-145)
[2017-04-25 02:48] LABS: ALKALINE PHOSPHATASE 102 U/L (45-117); TOTAL BILIRUBIN ADULT 0.6 MG/DL (0.2-1.0); TOTAL PROTEIN 6.3 GM/DL (6.4-8.2)
[2017-04-25 04:27] LABS: BANDS 38 % (0-6); LYMPHOCYTES 4 % (9-44); METAMYELOCYTES 4 % (0-1); MONOCYTES 10 % (0-8); NEUTROPHIL # MANUAL DIFF 12.7 TH/MM3 (1.8-7.7); POLYS (SEG NEUTROPHILS) 44 % (16-70); TOXIC VACUOLATION PRESENT (NONE SEEN)
[2017-04-25] MEDS: SODIUM CHLOR 0.9% 1000 ML INJ 1,000 ML IV SCH ×2 (04:27→13:17)
[2017-04-25 04:28] LABS: DOHLE BODIES PRESENT (NONE SEEN)
[2017-04-25 04:29] LABS: ACANTHOCYTES OCC (NORMAL); BURR CELLS 1+ (NORMAL); OVALOCYTES 1+ (NORMAL)
[2017-04-25] MEDS: LEVOTHYROXINE SODIUM 50 MCG TAB PO SCH (06:30)
[2017-04-25] MEDS ORDERED: SODIUM CHLOR 0.9% 1000 ML INJ 1,000 ML IV ONE (06:45)
[2017-04-25] MEDS: BECLOMETHASONE DIPROPIONATE 80 MCG/ACT 8.7 GM INHALER INH SCH ×2 (09:00→21:00)
[2017-04-25] MEDS: SODIUM CHLORIDE 0.9% FLUSH 10 ML FLUSH IV FLUSH SCH ×2 (09:00→21:00)
[2017-04-25] MEDS ORDERED: PHENYTOIN SODIUM 100 MG CAP PO SCH (09:00)
[2017-04-25] MEDS ORDERED: DOCUSATE SODIUM 50 MG/SENNA 8.6 MG TAB PO PRN (09:15)
[2017-04-25] MEDS: predniSONE 20 MG TAB PO SCH (09:43)
[2017-04-25] MEDS: PHENYTOIN SODIUM 100 MG CAP PO SCH ×2 (09:43→21:12)
[2017-04-25] MEDS: ESCITALOPRAM OXALATE 20 MG TAB PO SCH (09:43)
[2017-04-25] MEDS: OXcarbazepine 150 MG TAB PO SCH ×2 (09:44→21:12)
[2017-04-25] MEDS: ACETAMINOPHEN 325 MG TAB PO PRN (09:44)
[2017-04-25] MEDS: HEPARIN SODIUM - SQ 10,000 UNITS/ML VIAL SQ SCH ×2 (09:44→21:13)
[2017-04-25 09:48] LABS: BICARBONATE 20.5 MEQ/L (21.0-32.0); CALCIUM 7.6 MG/DL (8.5-10.1); CREATININE 2.54 MG/DL (0.50-1.00)
--- NOTE | 2017-04-25 10:55 | HHI.HP ---
HPI Service Family Medicine Primary Care Physician Raymond Melton MD Admission Diagnosis sepsis, UTI, acute renal failure, leukocytosis Diagnoses: (1) Sepsis secondary to UTI (2) Acute renal failure (3) Chronic respiratory failure (4) History of seizures (5) Right shoulder pain (6) Right eyelid laceration (7) Hypothyroidism (8) Hyperlipidemia (9) Hypertension (10) Depression (11) Nutrition, metabolism, and development symptoms International Travel<30 Days: No Contact w/Intl Traveler<30days: No Known Affected Area: No History of Present Illness Patient was febrile overnight with a T-max of 101.5 Fahrenheit and she complains of some shortness of breath and worsening low back pain. She remains tachycardic with heart rate ranging from 92-126. She denies any chest pain or palpitations. She denies any new episodes of lightheadedness or dizziness or syncope/near syncope. He states that she was unable to sleep last night due to her back pain and not being comfortable in her bed. Blood cultures did return with 3/4 positive for gram-negative rods In summary, this is a 57 yr old F w/ PMHx of status epilepticus and pseudotumor cerebri s/p LINECASTING MACHINE KEYBOARD OPERATOR shunt placement 2013 presents via EMS for lethargy. She states that she began having generalized malaise and fatigue for 1 week that is associated with weakness and falls at home. She fell yesterday and hit her head /right eye on the corner of a television console resulting in a laceration near her right eye. She also complains of right shoulder pain after her fall at home. She was able to contact her PCP who sent over home health nurse with subsequent call to EMS to have her transferred to the emergency department. Review of Systems Constitutional: COMPLAINS OF: Fatigue, Chills, DENIES: Fever, Dizziness Respiratory: COMPLAINS OF: Wheezing, Shortness of breath, DENIES: Cough, Sputum production Cardiovascular: COMPLAINS OF: Dyspnea on Exertion, Lower Extremity Edema, DENIES: Chest pain, Palpitations, Syncope Gastrointestinal: COMPLAINS OF: Nausea, Vomiting, DENIES: Abdominal pain, Black stools, Bloody stools, Constipation, Diarrhea Musculoskeletal: COMPLAINS OF: Joint pain, Back pain, DENIES: Neck pain Hematologic/lymphatic: DENIES: Bruising Past Family Social History Past Medical History Past Medical History Pseudotumor cerebri status post LINECASTING MACHINE KEYBOARD OPERATOR shunt placement 2013 History of status epilepticus Hypertension Hyperlipidemia Hypothyroidism Asthma Chronic obstructive pulmonary disease Bipolar disorder Depression Anxiety Insomnia Hx of collasped and paralyzed right lung on home 4.5 O2 NC , 5 O2 NC q6h on exertion Past Surgical History Past Surgical History Appendectomy Hysterectomy Salpingo-oophorectomy Left rotator cuff surgery Right thumb surgery LINECASTING MACHINE KEYBOARD OPERATOR shunt placed Allergies: Coded Allergies: aspirin (Unverified Allergy, Severe, AIRWAY OBSTRUCTION, 10/31/16) citric acid (Unverified Allergy, Intermediate, Diarrhea, 10/31/16) isosorbide (Unverified Allergy, Intermediate, Diarrhea, 10/31/16) milk (Unverified Allergy, Intermediate, Diarrhea, 10/31/16) PATIENT DENIES nitroglycerin (Unverified Allergy, Intermediate, Diarrhea, 10/31/16) nitroprusside sodium (Unverified Allergy, Intermediate, Diarrhea, 10/31/16) Sulfa (Sulfonamide Antibiotics) (Unverified Allergy, Unknown, 10/31/16) PT STATES SHE TAKES DIAMOX THAT HAS SULFA IN IT WITHOUT PROBLEMS Family History Family History Father had leukemia and mother has pancreatic cancer. Social History Social History Has Roommate, does not currently live there, has home health nurse 1/week, neighbor checks up on her 1-2/week Disabled Never Smoker Denies alcohol and illicit drug use 2 cats Physical Exam Vital Signs Vital Signs Date Time Temp Pulse Resp B/P (MAP) Pulse Ox O2 Delivery O2 Flow Rate FiO2 04/25/17 08:34 91 Nasal Cannula 4.00 04/25/17 04:13 99.1 94 20 122/63 (82) 96 04/25/17 03:47 92 04/25/17 01:14 94 Nasal Cannula 4.00 04/25/17 00:24 100.1 109 20 116/62 (80) 94 04/25/17 00:00 Nasal Cannula 4.00 04/24/17 23:40 117 04/24/17 23:15 Nasal Cannula 4.00 04/24/17 21:52 97 Nasal Cannula 4.00 04/24/17 20:38 101.5 107 20 140/80 (100) 99 04/24/17 20:11 04/24/17 19:19 106 16 121/64 (83) 98 Nasal Cannula 4.00 04/24/17 18:16 98.9 103 20 130/67 (88) 96 Nasal Cannula 4.00 04/24/17 16:52 97 Nasal Cannula 4.00 04/24/17 15:55 98 Nasal Cannula 4.00 04/24/17 15:55 98 Nasal Cannula 4.00 04/24/17 15:49 103.1 126 22 175/106 (129) 92 Physical Exam GENERAL: Obese female sitting up in chair next to bed in mild discomfort SKIN: Ecchymosis over right eye with sutures in place, appears clean and dry and intact NECK: Trachea midline. No JVD or lymphadenopathy. CARDIOVASCULAR: Tachycardia without murmur, gallops, or rubs RESPIRATORY: Diffuse expiratory wheezes with poor effort with respirations GASTROINTESTINAL: Abdomen soft, non-tender, nondistended. MUSCULOSKELETAL: Extremities without clubbing cyanosis or edema NEUROLOGICAL: Awake and alert, oriented x 3. Laboratory Laboratory Tests Test 04/24/17 15:56 04/24/17 16:10 04/24/17 16:15 04/24/17 16:45 Blood Gas Puncture Site IV IN L HAND Blood Gas Patient Temperature 98.6 Venous Blood pH 7.30 Venous Blood Partial Pressure CO2 52 Venous Blood Partial Pressure O2 19 Venous Blood HCO3 25 Venous Blood Oxygen Saturation 29 Venous Blood Oxygen Content 5.1 Venous Blood Base Excess -1.1 Oxygen Delivery Device NASAL CANNULA Blood Gas Liter Flow 3.5 White Blood Count 19.5 Red Blood Count 4.09 Hemoglobin 12.1 Hematocrit 36.6 Mean Corpuscular Volume 89.5 Mean Corpuscular Hemoglobin 29.5 Mean Corpuscular Hemoglobin Concent 33.0 Red Cell Distribution Width 13.6 Platelet Count 163 Mean Platelet Volume 9.5 Neutrophils (%) (Auto) 85.3 Lymphocytes (%) (Auto) 2.9 Monocytes (%) (Auto) 11.7 Eosinophils (%) (Auto) 0.0 Basophils (%) (Auto) 0.1 Neutrophils # (Auto) 16.6 Lymphocytes # (Auto) 0.6 Monocytes # (Auto) 2.3 Eosinophils # (Auto) 0.0 Basophils # (Auto) 0.0 CBC Comment AUTO DIFF Differential Total Cells Counted 100 Neutrophils % (Manual) 60 Band Neutrophils % 26 Lymphocytes % 5 Monocytes % 9 Neutrophils # (Manual) 16.8 Differential Comment FINAL DIFF MANUAL Dohle Bodies PRESENT Platelet Estimate NORMAL Platelet Morphology Comment ENLARGED Prothrombin Time 10.9 Prothromb Time International Ratio 1.1 Activated Partial Thromboplast Time 29.9 Blood Urea Nitrogen 38 Creatinine 2.56 Random Glucose 91 Total Protein 7.3 Albumin 2.4 Calcium Level 7.8 Magnesium Level 1.9 Alkaline Phosphatase 117 Aspartate Amino Transf (AST/SGOT) 86 Alanine Aminotransferase (ALT/SGPT) 28 Total Bilirubin 0.9 Sodium Level 128 Potassium Level 5.8 Chloride Level 96 Carbon Dioxide Level 21.9 Anion Gap 10 Estimat Glomerular Filtration Rate 19 Lactic Acid Level 1.1 Total Creatine Kinase 806 Creatine Kinase MB 0.6 Creatine Kinase MB % 0.1 Troponin I LESS THAN 0.02 Urine Color YELLOW Urine Turbidity CLOUDY Urine pH 6.0 Urine Specific Bon[place]arte 1.018 Urine Protein 300 Urine Glucose (UA) NEG Urine Ketones 10 Urine Occult Blood MOD Urine Nitrite NEG Urine Bilirubin NEG Urine Urobilinogen LESS THAN 2.0 Urine Leukocyte Esterase SMALL Urine RBC 11 Urine WBC 17 Urine WBC Clumps RARE Urine Squamous Epithelial Cells 2 Urine Bacteria MOD Microscopic Urinalysis Comment CULTURE INDICATED Phenytoin (Dilantin) Level 8.0 Test 04/25/17 01:32 04/25/17 06:45 04/25/17 08:30 White Blood Count 14.8 Red Blood Count 3.70 Hemoglobin 11.1 Hematocrit 33.1 Mean Corpuscular Volume 89.6 Mean Corpuscular Hemoglobin 30.0 Mean Corpuscular Hemoglobin Concent 33.5 Red Cell Distribution Width 13.5 Platelet Count 133 Mean Platelet Volume 9.7 Neutrophils (%) (Auto) 87.2 Lymphocytes (%) (Auto) 3.2 Monocytes (%) (Auto) 9.3 Eosinophils (%) (Auto) 0.1 Basophils (%) (Auto) 0.2 Neutrophils # (Auto) 12.9 Lymphocytes # (Auto) 0.5 Monocytes # (Auto) 1.4 Eosinophils # (Auto) 0.0 Basophils # (Auto) 0.0 CBC Comment AUTO DIFF Differential Total Cells Counted 100 Neutrophils % (Manual) 44 Band Neutrophils % 38 Lymphocytes % 4 Monocytes % 10 Neutrophils # (Manual) 12.7 Metamyelocytes 4 Differential Comment FINAL DIFF MANUAL Toxic Vacuolation PRESENT Dohle Bodies PRESENT Platelet Estimate LOW Platelet Morphology Comment NORMAL Ovalocytes 1+ [place] Cells 1+ Acanthocytes OCC Blood Urea Nitrogen 40 39 Creatinine 2.61 2.54 Random Glucose 106 92 Total Protein 6.3 Albumin 2.4 Calcium Level 7.5 7.6 Alkaline Phosphatase 102 Aspartate Amino Transf (AST/SGOT) 57 Alanine Aminotransferase (ALT/SGPT) 23 Total Bilirubin 0.6 Sodium Level 132 132 Potassium Level 3.9 4.5 Chloride Level 100 101 Carbon Dioxide Level 22.2 20.5 Anion Gap 10 11 Estimat Glomerular Filtration Rate 19 19 Total Creatine Kinase 682 Creatine Kinase MB 3.8 Creatine Kinase MB % 0.6 Stool C. difficile Toxin (PCR) NEGATIVE Stl C. difficile Toxin Epiderm 027 PRESUMPTIVE NEGATIVE Date/Time Source Procedure Growth Status 04/24/17 16:25 Blood Peripheral Aerobic Blood Culture Pending Resulted 04/24/17 16:25 Anaerobic Blood Culture - Preliminary Gram Negative Marquis Resulted 04/24/17 16:00 Nasal Aspirate Influenza Types A,B Antigen (CRISTAL) - Final NEGATIVE FOR FLU A AND B ANTIGEN.... Complete 04/24/17 16:15 Urine Catheterized Urine Urine Culture Pending Received Result Diagram: 04/25/17 0132 04/25/17 0830 Imaging Last [address] 04/24/17 1547 Signed Impressions: Service Date/Time: Monday, April 24, 2017 16:13 - CONCLUSION: No acute intracranial abnormality. Jose Moreno MD Chest X-Ray 04/24/17 1547 Signed Impressions: Service Date/Time: Monday, April 24, 2017 16:31 - CONCLUSION: 1. Stable elevation of the right hemidiaphragm. 2. No acute abnormality or significant interval change. Edy Mendez MD Shoulder X-Ray 04/24/17 0000 Signed Impressions: Service Date/Time: Monday, April 24, 2017 19:35 - CONCLUSION: No definite acute bony fracture or joint dislocation. Adrian Encarnacion MD Caprini VTE Risk Assessment Caprini VTE Risk Assessment: Mod/High Risk (score >= 2) Caprini Risk Assessment Model Point Value = 1 Point Value = 2 Point Value = 3 Point Value = 5 Age 41-60 Minor surgery BMI > 25 kg/m2 Swollen legs Varicose veins or History of unexplained or recurrent spontaneous Oral contraceptives or hormone replacement Sepsis (< 1 month) Serious lung disease, including pneumonia (< 1 month) Abnormal pulmonary function Acute myocardial infarction Congestive heart failure (< 1 month) History of inflammatory bowel disease Medical patient at bed rest Age 61-74 Arthroscopic surgery Major open surgery (> 45 min) Laparoscopic surgery (> 45 min) Malignancy Confined to bed (> 72 hours) Immobilizing plaster cast Central venous access Age >= 75 History of VTE Family history of VTE Factor V Leiden Prothrombin [id number] Lupus anticoagulant Anticardiolipin antibodies Elevated serum homocysteine Heparin-induced thrombocytopenia Other congenital or acquired thrombophilia Stroke (< 1 month) Elective arthroplasty Hip, pelvis, or leg fracture Acute spinal cord injury (< 1 month) Prophylaxis Regimen Total Risk Factor Score Risk Level Prophylaxis Regimen 0-1 Low Early ambulation 2 Moderate Order ONE of the following: *Sequential Compression Device (SCD) *Heparin 5000 units SQ BID 3-4 Higher Order ONE of the following medications: *Heparin 5000 units SQ TID *Enoxaparin/Lovenox 40 mg SQ daily (WT < 150 kg, CrCl > 30 mL/min) *Enoxaparin/Lovenox 30 mg SQ daily (WT < 150 kg, CrCl > 10-29 mL/min) *Enoxaparin/Lovenox 30 mg SQ BID (WT < 150 kg, CrCl > 30 mL/min) AND/OR *Sequential Compression Device (SCD) 5 or more Highest Order ONE of the following medications: *Heparin 5000 units SQ TID (Preferred with Epidurals) *Enoxaparin/Lovenox 40 mg SQ daily (WT < 150 kg, CrCl > 30 mL/min) *Enoxaparin/Lovenox 30 mg SQ daily (WT < 150 kg, CrCl > 10-29 mL/min) *Enoxaparin/Lovenox 30 mg SQ BID (WT < 150 kg, CrCl > 30 mL/min) AND *Sequential Compression Device (SCD) Assessment and Plan Assessment and Plan 57 yr old F w/ PMHx of status epilepticus and pseudotumor cerebri s/p LINECASTING MACHINE KEYBOARD OPERATOR shunt placement 2012 presents via EMS for lethargy. Problem List: (1) Sepsis secondary to UTI ICD Codes: A41.9 - Sepsis, unspecified organism; N39.0 - Urinary tract infection, site not specified Plan: Patient meets sepsis criteria with being febrile, tachycardia, leukocytosis and known source of infection with UTI as well as bacteremia Lactic acid 1.1 IV antibiotics: Zosyn 3.375 g IV every 6 hours Blood cultures positive for gram-negative rods drawn on 04/24/17 -Continue to monitor blood cultures for final species and susceptibilities -Repeat blood cultures tomorrow to verify clearance Urine cultures pending IV fluid resuscitation with normal saline at 160 mL/hour -Received 1 L bolus 3 in the emergency department as well as 1 L bolus 1 upon arriving to the floor Tylenol 650mg PO q4h PRN fever Monitor on telemetry Vitals every 4 hours (2) Bacteremia due to Gram-negative bacteria ICD Codes: R78.81 - Bacteremia Plan: Treatment as per sepsis above (3) Acute renal failure ICD Codes: N17.9 - Acute kidney failure, unspecified Status: Acute Plan: Creatinine 2.54 this morning -Likely due to hypoperfusion from sepsis and bacteremia Status post volume resuscitation as above Monitor with daily labs Obtain renal ultrasound to evaluate for structural abnormality or hydronephrosis Avoid nephrotoxic agents Repeat BMP, continue to monitor electrolytes (4) Chronic respiratory failure ICD Codes: J96.10 - Chronic respiratory failure, unspecified whether with hypoxia or hypercapnia Status: Acute Plan: On home 4.5L NC Continue home Qvar 80mcg inh and prdnisone 20mg PO daily Duoneb q4h scheduled with albuterol as needed (5) History of seizures ICD Codes: Z87.898 - History of seizure Status: Acute Plan: Subtherapeutic phenytoin at 8.0 -Obtain EEG to rule out seizures at home causing her falls -Increase phenytoin to 200 mg p.o. twice daily (increased from 200 mg nightly, 100 mg every morning) Continue home trileptal 150mg PO bid (6) Right shoulder pain ICD Codes: M25.511 - Pain in right shoulder Plan: R shoulder X-ray negative for fracture or dislocation Pain most likely MSK related Physical therapy consulted to evaluate patient (7) Right eyelid laceration ICD Codes: S01.111A - Laceration without foreign body of right eyelid and periocular area, initial encounter Plan: Laceration repaired by ED physician. (8) Hypothyroidism ICD Codes: E03.9 - Hypothyroidism Status: Chronic Plan: -continue home levothyroxine 50mcg (,,Th, ,Sat), 200mcg (Sun, Sun) (9) Hyperlipidemia ICD Codes: E78.5 - Hyperlipidemia Status: Chronic Plan: Continue home Pravastatin 80mg PO hs (10) Hypertension ICD Codes: I10 - Hypertension Status: Chronic Plan: Held home Enalapril due to RISA (11) Depression ICD Codes: F32.9 - Major depressive disorder, single episode, unspecified Plan: Continue home Lexapro 20mg PO daily (12) Nutrition, metabolism, and development symptoms ICD Codes: R63.8 - Other symptoms and signs concerning food and fluid intake Plan: Diet: Regular Fluids: NS 190mls/hr Electrolytes: monitor vitals q4h, monitor I & Os DVT ppx: heparin 5000 units q12hr PT requested Physician Certification 2 Midnight Certification Type: Admission for Inpatient Services Order for Inpatient Services The services are ordered in accordance with Medicare regulations or non- Medicare payer requirements, as applicable. In the case of services not specified as inpatient-only, they are appropriately provided as inpatient services in accordance with the 2-midnight benchmark. Estimated LOS (days): 2 2 days is the estimated time the patient will need to remain in the hospital, assuming treatment plan goals are met and no additional complications. Post-Hospital Plan: Not yet determined Problem Qualifiers (1) Acute renal failure: Qualified Codes: N17.9 - Acute kidney failure, unspecified Adrian Cruz MD Apr 25, 2017 10:55
--- NOTE | 2017-04-25 12:58 | EKG ---
Date Performed: 04/24/2017 Time Performed: 15:50:03 PTAGE: 57 years EKG: SINUS TACHYCARDIA PATTERN CONSISTENT WITH PULMONARY DISEASE INFERIOR MYOCARDIAL INFARCTION ABNORMAL ECG INTERPRETATION BASED ON A DEFAULT AGE OF 40 YEARS PREVIOUS TRACING : 01/29/2015 12.03 DOCTOR: Lanre Medina Interpretating Date/Time 04/25/2017 12:51:48
--- NOTE | 2017-04-25 13:00 | RADRPT ---
EXAM DATE/TIME: 04/25/2017 09:14 [facility] COMPARISON: No previous studies available for comparison. INDICATIONS : Abnormal labs. MEDICAL HISTORY : Hypercholesterolemia. Hypertension. Chronic obstructive pulmonary disease. SURGICAL HISTORY : Hysterectomy. Appendectomy. ENCOUNTER: Initial ACUITY: 1 day PAIN SCORE: 03/28 LOCATION: Bilateral flank MEASUREMENTS: RIGHT KIDNEY: 8.6 x 4.4 x 4.4 cm LEFT KIDNEY: 11.5 x 6.7 x 7.1 cm FINDINGS: RIGHT KIDNEY: Slightly small however focally unremarkable with normal cortical thickness and echogenicity. No evide nce of hydronephrosis. LEFT KIDNEY: Renal cortex is normal in thickness and echotexture. No hydronephrosis, stone, or mass. BLADDER: Within normal limits given the degree of distension. CONCLUSION: Renal size asymmetry, right smaller than left. No evidence of hydronephrosis Rodney Guerrero MD on April 25, 2017 at 12:57 Board Certified Radiologist. This report was verified electronically.
[2017-04-25] MEDS: RESP: ALBUTEROL 2.5 MG/IPRATROPIUM 0.5 MG NEB (SCH) NEB ×4 (13:23→23:53)
[2017-04-25] MEDS: ACETAMINOPHEN/HYDROcodone 325 MG/5 MG TAB PO PRN (13:48)
[2017-04-25] MEDS ORDERED: MORPHINE SULFATE 2 MG/ML INJ IV PUSH PRN (15:00)
--- NOTE | 2017-04-25 15:08 | MG ---
cc: PRASANTH OJEDA M.D., KATHRYN E. MD Lab No: [id number] Date: 04/25/2017 : 1960 Age: 57 Sex: F Room 1410. Hyperventilation and photic done. Awake. Last EEG in 2012 was normal. INDICATION Admitted with lethargy, one week progressive symptoms, tachycardic, febrile. CT normal. History of pseudotumor cerebri, retinal detachment, shunt, right diaphragmatic paralysis. MEDICATIONS Antibiotics, Lexapro, Synthroid and others. DESCRIPTION OF RECORD The patient has some mild slowing, 5 Hz. Some sweat sway, apparently the patient is febrile. Per tech he is very warm to touch. Some mild to moderate slowing seen. EKG looks either sinus or sinus tachycardic. No appreciable epileptic activity. With photic stimulation there is a mild driving response. IMPRESSION Mild to moderate slowing may be due to encephalopathic process, may be due to the patient's febrile illness, but no epileptiform features. MD SANDY Rodgers/SALONI /2:41 PM /2:57 PM
[2017-04-25] MEDS: PRAVASTATIN SOD 80 MG TAB PO SCH (21:12)
[2017-04-25] MEDS: ACETAMINOPHEN/HYDROcodone 325 MG/7.5 MG TAB PO PRN (21:12)
[2017-04-26] VITALS (9 sets, daily range): BP systolic 124–141; BP diastolic 67–85; PULSE 80–97; RESP 15–20; TEMP 97.6–99.8; O2SAT 96–100
[2017-04-26] MEDS: PIPERACIL-TAZO 3.375 GM PREMIX 50 ML IV SCH ×3 (01:25→12:47)
[2017-04-26] MEDS: SODIUM CHLOR 0.9% 1000 ML INJ 1,000 ML IV SCH ×3 (02:13→16:05)
[2017-04-26] MEDS: RESP: ALBUTEROL 2.5 MG/IPRATROPIUM 0.5 MG NEB (SCH) NEB ×5 (04:00→20:12)
[2017-04-26] MEDS: LEVOTHYROXINE SODIUM 50 MCG TAB PO SCH (05:36)
[2017-04-26 07:28] LABS: BICARBONATE 22.6 MEQ/L (21.0-32.0); CREATININE 2.6 MG/DL (0.50-1.00)
[2017-04-26 07:43] LABS: BASOPHIL % 0.1 % (0.0-2.0); EOSINOPHIL % 0.1 % (0.0-4.0); HEMATOCRIT 37.1 % (35.0-46.0); LYMPH % 4.2 % (9.0-44.0); LYMPHOCYTE # 0.6 TH/MM3 (1.0-4.8); MEAN CELL VOLUME 90.2 FL (80.0-100.0); MEAN CORPUSCULAR HEMOGLOBIN 29.3 PG (27.0-34.0); MEAN CORPUSCULAR HGB CONC 32.4 % (32.0-36.0); MEAN PLATELET VOLUME 9.7 FL (7.0-11.0); MONO % 13.3 % (0.0-8.0); MONOCYTE # 1.9 TH/MM3 (0-0.9); NEUT % 82.3 % (16.0-70.0); PLATELET COUNT 107 TH/MM3 (150-450); RED BLOOD COUNT 4.12 MIL/MM3 (4.00-5.30); RED CELL DISTRIBUTION WIDTH 14.5 % (11.6-17.2); WHITE BLOOD COUNT 14.6 TH/MM3 (4.0-11.0)
[2017-04-26] MEDS: PHENYTOIN SODIUM 100 MG CAP PO SCH ×2 (08:57→20:46)
[2017-04-26] MEDS: ESCITALOPRAM OXALATE 20 MG TAB PO SCH (08:57)
[2017-04-26] MEDS: OXcarbazepine 150 MG TAB PO SCH ×2 (08:57→20:46)
[2017-04-26] MEDS: HEPARIN SODIUM - SQ 10,000 UNITS/ML VIAL SQ SCH ×2 (08:57→20:47)
[2017-04-26] MEDS: predniSONE 20 MG TAB PO SCH (08:57)
[2017-04-26] MEDS: SODIUM CHLORIDE 0.9% FLUSH 10 ML FLUSH IV FLUSH SCH ×2 (08:57→20:44)
[2017-04-26] MEDS: BECLOMETHASONE DIPROPIONATE 80 MCG/ACT 8.7 GM INHALER INH SCH ×2 (09:04→21:11)
[2017-04-26] MEDS: ACETAMINOPHEN/HYDROcodone 325 MG/7.5 MG TAB PO PRN ×2 (09:05→20:46)
[2017-04-26 09:21] LABS: BANDS 62 % (0-6); LYMPHOCYTES 3 % (9-44); MONOCYTES 10 % (0-8); NEUTROPHIL # MANUAL DIFF 12.7 TH/MM3 (1.8-7.7); POLYS (SEG NEUTROPHILS) 25 % (16-70)
[2017-04-26 09:22] LABS: TOXIC VACUOLATION PRESENT (NONE SEEN)
[2017-04-26 09:23] LABS: BURR CELLS 1+ (NORMAL); DOHLE BODIES PRESENT (NONE SEEN)
--- NOTE | 2017-04-26 11:29 | HHI.FPPN ---
Subjective Remarks No acute events overnight. Pt sitting up in chair on 4L NC. She feels "loopy" after pain meds. She is oriented to person and place, but not time. She has no complaints this morning. She denies CP, SOB, and N/V. (Leni Gaytan MD R1) Objective Vitals Vital Signs Date Time Temp Pulse Resp B/P (MAP) Pulse Ox O2 Delivery O2 Flow Rate FiO2 04/26/17 08:00 Nasal Cannula 4.00 04/26/17 08:00 95 04/26/17 08:00 99.8 97 16 141/67 (91) 99 04/26/17 07:31 Nasal Cannula 4.50 04/26/17 06:48 98.2 84 18 140/74 (96) 100 04/26/17 03:49 90 04/26/17 00:40 98.0 83 18 141/77 (98) 100 04/25/17 23:53 98 Nasal Cannula 4.00 04/25/17 23:43 74 04/25/17 22:41 Nasal Cannula 4.00 04/25/17 21:09 97.8 85 18 130/66 (87) 100 04/25/17 19:44 92 04/25/17 16:10 98.3 90 20 132/60 (84) 97 04/25/17 16:05 92 Nasal Cannula 4.00 04/25/17 12:10 97.9 95 19 157/89 (111) 92 I/O 04/25/17 04/25/17 04/25/17 04/26/17 04/26/17 04/26/17 07:00 15:00 23:00 07:00 15:00 23:00 Intake Total 1306 ml 3080 ml 2107 ml Output Total 350 ml 450 ml Balance 956 ml 3080 ml 1657 ml Intake Oral 480 ml 480 ml IV Total 1306 ml 2600 ml 1627 ml Output Urine Total 350 ml 450 ml # Voids 3 # Bowel Movements 3 (Leni Gaytan MD R1) Result Diagram: 04/26/17 0539 04/26/17 0539 Objective Remarks GENERAL: obese F, sitting up in chair, in NAD SKIN: small bruise on right upper eye- stitches in place, no acute bleeding, healing, few area of ecchymosis on upper extremities EYES: Pupils dilated, reactive to light CARDIOVASCULAR: Regular rate and rhythm without murmurs, gallops, or rubs. RESPIRATORY: decreased air movement with diffuse wheezing throughout GASTROINTESTINAL: Abdomen soft, non-tender, nondistended. No hepato-splenomegaly , or palpable masses. No guarding. MUSCULOSKELETAL: 1+ pitting edema up to shins b/l NEUROLOGICAL: Awake, alert, oriented to person and place, not time (Leni Gaytan MD R1) A/P Assessment and Plan 57 yr old F w/ PMHx of status epilepticus and pseudotumor cerebri s/p AVIATION CONSULTANT shunt placement 2012 presents via EMS for lethargy. (Leni Gaytan MD R1) Attending Attestation Pt. examined and case discussed with resident physicians. I personally examined patient this morning during rounds separate from the residents. I have read the above note and agree with the assessment and plan as discussed with me. I was involved in all medical decision making for this patient. Adrian Cruz MD (Adrian Cruz MD) Problem List: (1) Sepsis secondary to UTI ICD Codes: A41.9 - Sepsis, unspecified organism; N39.0 - Urinary tract infection, site not specified Plan: Patient meets sepsis criteria with being febrile, tachycardia, leukocytosis and known source of infection with UTI as well as bacteremia Lactic acid 1.1 IV antibiotics: Zosyn 3.375 g IV every 6 hours Blood cultures and urine culture positive for Klebsiella drawn on 04/24/17 -Continue to monitor blood cultures for final species and susceptibilities -Repeat blood cultures ordered 04/25/17 IV fluid resuscitation with normal saline at 160 mL/hour -Received 1 L bolus 3 in the emergency department as well as 1 L bolus 1 upon arriving to the floor Tylenol 650mg PO q4h PRN fever Monitor on telemetry Vitals every 4 hours (2) Bacteremia due to Gram-negative bacteria ICD Codes: R78.81 - Bacteremia Plan: Treatment as per sepsis above (3) Acute renal failure ICD Codes: N17.9 - Acute kidney failure, unspecified Status: Acute Plan: Creatinine 2.5 this morning -Likely due to hypoperfusion from sepsis and bacteremia Status post volume resuscitation as above Monitor with daily labs Renal Ultrasound demonstrated asymmetry, right smaller than left. no evidence of hydronephrosis. Avoid nephrotoxic agents Repeat BMP, continue to monitor electrolytes (4) Chronic respiratory failure ICD Codes: J96.10 - Chronic respiratory failure, unspecified whether with hypoxia or hypercapnia Status: Acute Plan: On home 4.5L NC Continue home Qvar 80mcg inh and prdnisone 20mg PO daily Duoneb q4h scheduled with albuterol as needed (5) History of seizures ICD Codes: Z87.898 - History of seizure Status: Acute Plan: Subtherapeutic phenytoin at 8.0 -EEG demonstrated mild to moderate slowing may be due to encephalopathic process , may be due to patient's febrile illness, but no epileptiform features -Continue phenytoin to 200 mg p.o. twice daily (increased from 200 mg nightly, 100 mg every morning) -Continue home trileptal 150mg PO bid (6) Right shoulder pain ICD Codes: M25.511 - Pain in right shoulder Plan: R shoulder X-ray negative for fracture or dislocation Pain most likely MSK related Physical therapy consulted to evaluate patient (7) Right eyelid laceration ICD Codes: S01.111A - Laceration without foreign body of right eyelid and periocular area, initial encounter Plan: Laceration repaired by ED physician. (8) Hypothyroidism ICD Codes: E03.9 - Hypothyroidism Status: Chronic Plan: -continue home levothyroxine 50mcg (,,Th, ,Sun), 200mcg (Sun, Sun) (9) Hyperlipidemia ICD Codes: E78.5 - Hyperlipidemia Status: Chronic Plan: Continue home Pravastatin 80mg PO hs (10) Hypertension ICD Codes: I10 - Hypertension Status: Chronic Plan: Held home Enalapril due to RISA (11) Depression ICD Codes: F32.9 - Major depressive disorder, single episode, unspecified Plan: Continue home Lexapro 20mg PO daily (12) Nutrition, metabolism, and development symptoms ICD Codes: R63.8 - Other symptoms and signs concerning food and fluid intake Plan: Diet: Regular Fluids: NS 190mls/hr Electrolytes: monitor vitals q4h, monitor I & Os DVT ppx: heparin 5000 units q12hr PT requested (Leni Gaytan MD R1) Problem Qualifiers (1) Acute renal failure: Qualified Codes: N17.9 - Acute kidney failure, unspecified Leni Gaytan MD R1 Apr 26, 2017 11:27 Adrian Cruz MD Apr 26, 2017 21:03
[2017-04-26] MEDS ORDERED: FUROSEMIDE 40 MG/4 ML VIAL IV PUSH ONE (13:30)
[2017-04-26] MEDS: cefTRIAXone INJ 1,000 MG in SODIUM CHLORIDE 0.9% INJ 100 ML IV SCH (14:14)
[2017-04-26] MEDS: PRAVASTATIN SOD 80 MG TAB PO SCH (20:47)
[2017-04-27] VITALS (14 sets, daily range): BP systolic 100–195; BP diastolic 52–125; PULSE 76–105; RESP 15–21; TEMP 97.4–99.2; O2SAT 94–100
[2017-04-27] MEDS: RESP: ALBUTEROL 2.5 MG/IPRATROPIUM 0.5 MG NEB (SCH) NEB ×7 (00:33→23:56)
[2017-04-27] MEDS: SODIUM CHLOR 0.9% 1000 ML INJ 1,000 ML IV SCH (01:15)
[2017-04-27] MEDS: ACETAMINOPHEN/HYDROcodone 325 MG/5 MG TAB PO PRN (01:19)
[2017-04-27] MEDS: LEVOTHYROXINE SODIUM 50 MCG TAB PO SCH (05:23)
[2017-04-27 07:47] LABS: AUTOMATED NEUTROPHIL # 10.7 TH/MM3 (1.8-7.7); BASOPHIL % 0.1 % (0.0-2.0); EOSINOPHIL % 0.2 % (0.0-4.0); HEMATOCRIT 31.4 % (35.0-46.0); HEMOGLOBIN 10.5 GM/DL (11.6-15.3); LYMPH % 5.4 % (9.0-44.0); LYMPHOCYTE # 0.7 TH/MM3 (1.0-4.8); MEAN CELL VOLUME 90.7 FL (80.0-100.0); MEAN CORPUSCULAR HEMOGLOBIN 30.3 PG (27.0-34.0); MEAN CORPUSCULAR HGB CONC 33.4 % (32.0-36.0); MEAN PLATELET VOLUME 9.8 FL (7.0-11.0); MONO % 13.3 % (0.0-8.0); MONOCYTE # 1.8 TH/MM3 (0-0.9); PLATELET COUNT 124 TH/MM3 (150-450); RED BLOOD COUNT 3.46 MIL/MM3 (4.00-5.30); RED CELL DISTRIBUTION WIDTH 14.7 % (11.6-17.2); WHITE BLOOD COUNT 13.3 TH/MM3 (4.0-11.0)
[2017-04-27 08:10] LABS: ALBUMIN 2.2 GM/DL (3.4-5.0); AST (GOT) 60 U/L (15-37); BLOOD UREA NITROGEN 41 MG/DL (7-18); CHLORIDE 103 MEQ/L (98-107); CREATININE 2.74 MG/DL (0.50-1.00); GLOMERULAR FILTRATION RATE 18 ML/MIN (>89); GLUCOSE,RANDOM 94 MG/DL (74-106); SODIUM (NA) 135 MEQ/L (136-145)
[2017-04-27 08:14] LABS: ALKALINE PHOSPHATASE 111 U/L (45-117); ALT (GPT) 28 U/L (10-53); TOTAL BILIRUBIN ADULT 0.3 MG/DL (0.2-1.0); TOTAL PROTEIN 6.6 GM/DL (6.4-8.2)
[2017-04-27 08:29] LABS: BANDS 26 % (0-6); LYMPHOCYTES 6 % (9-44); MONOCYTES 8 % (0-8); NEUTROPHIL # MANUAL DIFF 11.4 TH/MM3 (1.8-7.7); OVALOCYTES 1+ (NORMAL); POLYS (SEG NEUTROPHILS) 60 % (16-70); TOXIC VACUOLATION PRESENT (NONE SEEN)
[2017-04-27] MEDS: HEPARIN SODIUM - SQ 10,000 UNITS/ML VIAL SQ SCH ×2 (08:35→20:27)
[2017-04-27] MEDS: OXcarbazepine 150 MG TAB PO SCH ×2 (08:36→20:30)
[2017-04-27] MEDS: predniSONE 20 MG TAB PO SCH (08:36)
[2017-04-27] MEDS: ESCITALOPRAM OXALATE 20 MG TAB PO SCH (08:36)
[2017-04-27] MEDS: PHENYTOIN SODIUM 100 MG CAP PO SCH ×2 (08:36→20:28)
[2017-04-27] MEDS: SODIUM CHLORIDE 0.9% FLUSH 10 ML FLUSH IV FLUSH SCH ×2 (08:36→20:30)
[2017-04-27] MEDS: BECLOMETHASONE DIPROPIONATE 80 MCG/ACT 8.7 GM INHALER INH SCH ×2 (08:36→20:30)
--- NOTE | 2017-04-27 08:39 | HHI.FPPN ---
Subjective Remarks Nurse reports that patient was confused overnight and staring pulling her IV out. Her NC also fell out. After placing her NC back on, she was calm. Pt lying in recliner this AM. Appears fatigue and reports that she isn't eating well. Currently on 4.5L NC. BP 100/52, HR 90, 500ml bolus administered, recheck BP of 126/76. She denies fevers, CP, abdominal pain, N/V, and calf pain. (Leni Gaytan MD R1) Objective Vitals Vital Signs Date Time Temp Pulse Resp B/P (MAP) Pulse Ox O2 Delivery O2 Flow Rate FiO2 04/27/17 08:00 97.4 90 16 100/52 (68) 100 04/27/17 07:45 Nasal Cannula 4.00 04/27/17 04:00 97.8 76 18 113/69 (84) 98 04/27/17 04:00 83 04/27/17 00:00 97.8 86 18 131/79 (96) 97 04/26/17 23:50 80 04/26/17 21:00 97.6 87 20 128/79 (95) 100 04/26/17 20:20 Nasal Cannula 4.00 04/26/17 20:00 90 04/26/17 19:45 Nasal Cannula 4.00 04/26/17 16:00 97.9 84 18 139/76 (97) 96 04/26/17 16:00 86 04/26/17 12:00 88 04/26/17 12:00 97.8 86 15 124/85 (98) 98 I/O 04/26/17 04/26/17 04/26/17 04/27/17 04/27/17 04/27/17 06:59 14:59 22:59 06:59 14:59 22:59 Intake Total 2107 ml 720 ml 950 ml Output Total 450 ml 700 ml Balance 1657 ml 20 ml 950 ml Intake Oral 480 ml 720 ml 320 ml IV Total 1627 ml 630 ml Output Urine Total 450 ml 700 ml # Voids 2 # Bowel Movements 1 (Leni Gaytan MD R1) Result Diagram: 04/27/17 0706 04/27/17 0706 Objective Remarks GENERAL: obese F, sitting in recliner, on 4.5L o2 NC, in NAD SKIN: small bruise on right upper eye- stitches in place, no acute bleeding, healing, few area of ecchymosis on upper extremities EYES: Pupils dilated, reactive to light CARDIOVASCULAR: Regular rate and rhythm without murmurs, gallops, or rubs. RESPIRATORY: decreased air movement with diffuse wheezing and coarse breath sounds throughout, worse than prior exam GASTROINTESTINAL: Abdomen soft, non-tender, nondistended. No hepato-splenomegaly , or palpable masses. No guarding. MUSCULOSKELETAL: No pitting edema b/l, improved from prior exam NEUROLOGICAL: Awake, alert, oriented to person and place, not time (Leni Gaytan MD R1) A/P Assessment and Plan 57 yr old F w/ PMHx of status epilepticus and pseudotumor cerebri s/p [employer] shunt placement 2013 presents via EMS for lethargy. Discharge Planning Pending clinical improvement Will need PT at rehab (Leni Gaytan MD R1) Attending Attestation Patient examined separately from resident physicians on rounds this morning at 9 AM Patient case discussed with resident physicians and assessment/plan was discussed with me I have read the above note and agree with the assessment/plan as discussed with me I was involved in all medical decision making with this patient Adrian Cruz MD (Adrian Cruz MD) Problem List: (1) Sepsis secondary to UTI ICD Codes: A41.9 - Sepsis, unspecified organism; N39.0 - Urinary tract infection, site not specified Plan: Patient meets sepsis criteria with being febrile, tachycardia, leukocytosis and known source of infection with UTI as well as bacteremia Lactic acid 1.1 Blood cultures and urine culture positive for Klebsiella, pansensitive, drawn on 04/24/17 -Repeat blood cultures ordered 04/25/17-NGTD IV antibiotics: Continue Rocephin 1,000 mg IV q24h (started 04/26) Discontinued Zosyn 3.375 g IV every 6 hours (04/25-04/26) IV fluid resuscitation with normal saline at 80mls/hr (decreased from 160mls/hr due to concern for fluid overload) -Received 1 L bolus 3 in the emergency department as well as 1 L bolus 1 upon arriving to the floor Tylenol 650mg PO q4h PRN fever Monitor on telemetry Vitals every 4 hours (2) Bacteremia due to Gram-negative bacteria ICD Codes: R78.81 - Bacteremia Plan: Treatment as per sepsis above (3) Acute renal failure ICD Codes: N17.9 - Acute kidney failure, unspecified Status: Acute Plan: Creatinine trending up 2.74 today Poor UOP -Likely due to hypoperfusion from sepsis and bacteremia Renal Ultrasound demonstrated asymmetry, right smaller than left. no evidence of hydronephrosis. Nephrology consulted, recommendations appreciated. Avoid nephrotoxic agents (4) Chronic respiratory failure ICD Codes: J96.10 - Chronic respiratory failure, unspecified whether with hypoxia or hypercapnia Status: Acute Plan: On home 4.5L NC Continue home Qvar 80mcg inh and prednisone 20mg PO daily Duoneb q4h scheduled CPT Repeat CXR this AM for worsening SOB VBG, BNP, lactic acid pending 20ml of IV lasix administered due to concern for pulmonary edema (5) History of seizures ICD Codes: Z87.898 - History of seizure Status: Acute Plan: Subtherapeutic phenytoin at 8.0 -EEG demonstrated mild to moderate slowing may be due to encephalopathic process , may be due to patient's febrile illness, but no epileptiform features -Continue phenytoin to 200 mg p.o. twice daily (increased from 200 mg nightly, 100 mg every morning) -Continue home trileptal 150mg PO bid (6) Right shoulder pain ICD Codes: M25.511 - Pain in right shoulder Plan: R shoulder X-ray negative for fracture or dislocation Pain most likely MSK related Physical therapy consulted to evaluate patient (7) Right eyelid laceration ICD Codes: S01.111A - Laceration without foreign body of right eyelid and periocular area, initial encounter Plan: Laceration repaired by ED physician. (8) Hypothyroidism ICD Codes: E03.9 - Hypothyroidism Status: Chronic Plan: -continue home levothyroxine 50mcg (,,Th, ,Sun), 200mcg (Sun, Sun) (9) Hyperlipidemia ICD Codes: E78.5 - Hyperlipidemia Status: Chronic Plan: Continue home Pravastatin 80mg PO hs (10) Hypertension ICD Codes: I10 - Hypertension Status: Chronic Plan: Held home Enalapril due to RISA (11) Depression ICD Codes: F32.9 - Major depressive disorder, single episode, unspecified Plan: Continue home Lexapro 20mg PO daily (12) Nutrition, metabolism, and development symptoms ICD Codes: R63.8 - Other symptoms and signs concerning food and fluid intake Plan: Diet: Regular Fluids: NS 80mls/hr (1/2 maintenance) Electrolytes: monitor vitals q4h, monitor I & Os DVT ppx: heparin 5000 units q12hr PT requested, will need PT at rehab (Leni Gaytan MD R1) Problem Qualifiers (1) Acute renal failure: Qualified Codes: N17.9 - Acute kidney failure, unspecified Leni Gaytan MD R1 Apr 27, 2017 08:39 Adrian Cruz MD Apr 27, 2017 14:55
[2017-04-27] MEDS ORDERED: SODIUM CHLORID 0.9% 500 ML INJ 500 ML IV ONE (09:00)
[2017-04-27] MEDS ORDERED: FUROSEMIDE 20 MG/2 ML VIAL IV PUSH ONE (11:00)
--- NOTE | 2017-04-27 12:05 | PD.CONS ---
HPI Service Nephrology Consult Requested By Reason for Consult Acute Renal Failure Primary Care Physician Raymond Melton MD History of Present Illness This is a morbidly obese female patient who was admitted on 04/24 for AMS, fever/chills at home, frequent falls. She had fallen and suffered right ocular trauma, was down for a few hours. On arrival she had UTI, urine and blood cultures grew Klebsiella, she was started on antibiotics. In 2015 her creatinine was 1. Since arrival it has been 2.5- 2.6, today it is 2.7. She has been given IVF boluses, is on NS @ 50, and is on lasix intermittently, with minimal improvement in renal indices. We were consulted to assist. She is awake , reporting fatigue. Urine output 700 past 24 hrs. (Kasandra Whitman) Review of Systems Constitutional: COMPLAINS OF: Fatigue Gastrointestinal: DENIES: Abdominal pain Musculoskeletal: COMPLAINS OF: Muscle aches, Stiffness, Back pain (Kasandra Whitman) Past Family Social History Allergies: Coded Allergies: aspirin (Unverified Allergy, Severe, AIRWAY OBSTRUCTION, 10/31/16) citric acid (Unverified Allergy, Intermediate, Diarrhea, 10/31/16) isosorbide (Unverified Allergy, Intermediate, Diarrhea, 10/31/16) milk (Unverified Allergy, Intermediate, Diarrhea, 10/31/16) PATIENT DENIES nitroglycerin (Unverified Allergy, Intermediate, Diarrhea, 10/31/16) nitroprusside sodium (Unverified Allergy, Intermediate, Diarrhea, 10/31/16) Sulfa (Sulfonamide Antibiotics) (Unverified Allergy, Unknown, 10/31/16) PT STATES SHE TAKES DIAMOX THAT HAS SULFA IN IT WITHOUT PROBLEMS Past Medical History Pseudotumor cerebri status post [employer] shunt placement 2012 History of status epilepticus Hypertension Hyperlipidemia Hypothyroidism Asthma Chronic obstructive pulmonary disease Bipolar disorder Depression Anxiety Insomnia Hx of collasped and paralyzed right lung on home 4.5 O2 NC , 5 O2 NC q6h on exertion Past Surgical History Appendectomy Hysterectomy Salpingo-oophorectomy Left rotator cuff surgery Right thumb surgery [employer] shunt placed Reported Medications Ambien (Zolpidem Tartrate) 10 Mg Tab 10 Mg PO HS PRN Lexapro (Escitalopram Oxalate) 20 Mg Tab 20 Mg PO DAILY Valium (Diazepam) 10 Mg Tab 10 Mg PO TID PRN Trileptal (Oxcarbazepine) 150 Mg Tab 150 Mg PO BID Phenytoin Extended 200 Mg Cap 200 Mg PO HS Simvastatin 40 Mg Tab 40 Mg PO HS Prednisone 20 Mg Tab 20 Mg PO BID Phenytoin Extended 100 Mg Cap 100 Mg PO DIRECTED 100MG ALTERNATING WITH 200MG (2 CAPSULES) DAILY IN THE AM Levothyroxine (Levothyroxine Sodium) 50 Mcg Tab 50 Mcg PO 100MCG ALELN Levothyroxine (Levothyroxine Sodium) 50 Mcg Tab 50 Mcg PO MOTUWETHFSA Epipen 2-Yahir Inj (Epinephrine) 0.3 Mg/0.3 Ml Pfpen 0.3 Mg SQ ONCE PRN Enalapril (Enalapril Maleate) 20 Mg Tab 20 Mg PO BID Combivent Respimat Inh (Ipratropium-Albuterol Inh) 20-100 Halfway/Act Aero 1 Puff INH QID Qvar Inh (Beclomethasone Dipropionate) 80 Mcg/Act Aero 1 Puff INH BID Proair Hfa 8.5 GM Inh (Albuterol Sulfate) 90 Mcg/Act Aer 1 Puff INH Q6HR PRN 108 mcg/actuation Active Ordered Medications Last 72 hours Impressions Renal Ultrasound 04/25/17 0000 Signed Impressions: Service Date/Time: Tuesday, April 25, 2017 09:14 - CONCLUSION: Renal size asymmetry, right smaller than left. No evidence of hydronephrosis Rodney Guerrero MD Head CT 04/24/17 1547 Signed Impressions: Service Date/Time: Monday, April 24, 2017 16:13 - CONCLUSION: No acute intracranial abnormality. Jose Moreno MD Chest X-Ray 04/24/177 Signed Impressions: Service Date/Time: Monday, April 24, 2017 16:31 - CONCLUSION: 1. Stable elevation of the right hemidiaphragm. 2. No acute abnormality or significant interval change. Edy Mendez MD Family History No hx of renal impairment Social History Single, lives alone Non smoker, No ETOH Full Code (Kasandra Whitman) Physical Exam Vital Signs Vital Signs Date Time Temp Pulse Resp B/P (MAP) Pulse Ox O2 Delivery O2 Flow Rate FiO2 04/27/17 10:00 126/76 (93) 04/27/17 08:00 97.4 90 16 100/52 (68) 100 04/27/17 07:45 Nasal Cannula 4.00 04/27/17 04:00 97.8 76 18 113/69 (84) 98 04/27/17 04:00 83 04/27/17 00:00 97.8 86 18 131/79 (96) 97 04/26/17 23:50 80 04/26/17 21:00 97.6 87 20 128/79 (95) 100 04/26/17 20:20 Nasal Cannula 4.00 04/26/17 20:00 90 04/26/17 19:45 Nasal Cannula 4.00 04/26/17 16:00 97.9 84 18 139/76 (97) 96 04/26/17 16:00 86 04/26/17 12:00 88 04/26/17 12:00 97.8 86 15 124/85 (98) 98 Physical Exam Morbidly obese CF, lying in bed resting S1/S2, RRR Exp wheezing, decreased in bases Abd round, soft, non tender Trace edema lower extremities Right ocular bruising Laboratory Laboratory Tests Test 04/27/17 07:06 White Blood Count 13.3 Red Blood Count 3.46 Hemoglobin 10.5 Hematocrit 31.4 Mean Corpuscular Volume 90.7 Mean Corpuscular Hemoglobin 30.3 Mean Corpuscular Hemoglobin Concent 33.4 Red Cell Distribution Width 14.7 Platelet Count 124 Mean Platelet Volume 9.8 Neutrophils (%) (Auto) 81.0 Lymphocytes (%) (Auto) 5.4 Monocytes (%) (Auto) 13.3 Eosinophils (%) (Auto) 0.2 Basophils (%) (Auto) 0.1 Neutrophils # (Auto) 10.7 Lymphocytes # (Auto) 0.7 Monocytes # (Auto) 1.8 Eosinophils # (Auto) 0.0 Basophils # (Auto) 0.0 CBC Comment AUTO DIFF Differential Total Cells Counted 100 Neutrophils % (Manual) 60 Band Neutrophils % 26 Lymphocytes % 6 Monocytes % 8 Neutrophils # (Manual) 11.4 Differential Comment FINAL DIFF MANUAL Atypical Lymphocytes Toxic Vacuolation PRESENT Platelet Estimate LOW Platelet Morphology Comment ENLARGED Ovalocytes 1+ Blood Urea Nitrogen 41 Creatinine 2.74 Random Glucose 94 Total Protein 6.6 Albumin 2.2 Calcium Level 8.0 Alkaline Phosphatase 111 Aspartate Amino Transf (AST/SGOT) 60 Alanine Aminotransferase (ALT/SGPT) 28 Total Bilirubin 0.3 Sodium Level 135 Potassium Level 4.4 Chloride Level 103 Carbon Dioxide Level 23.0 Anion Gap 9 Estimat Glomerular Filtration Rate 18 Date/Time Source Procedure Growth Status 04/25/17 20:26 Blood Peripheral Aerobic Blood Culture - Preliminary NO GROWTH IN 2 DAYS Resulted 04/25/17 20:26 Blood Peripheral Anaerobic Blood Culture - Preliminary NO GROWTH IN 2 DAYS Resulted 04/24/17 16:00 Nasal Aspirate Influenza Types A,B Antigen (CRISTAL) - Final NEGATIVE FOR FLU A AND B ANTIGEN.... Complete 04/24/17 16:15 Urine Catheterized Urine Urine Culture - Final Klebsiella Pneumoniae Complete (Kasandra Whitman) Result Diagram: 04/27/17 0706 04/27/17 0706 Imaging Last 72 hours Impressions Renal Ultrasound 04/25/17 0000 Signed Impressions: Service Date/Time: Tuesday, April 25, 2017 09:14 - CONCLUSION: Renal size asymmetry, right smaller than left. No evidence of hydronephrosis Rodney Guerrero MD Head CT 04/24/171546 Signed Impressions: Service Date/Time: Monday, April 24, 2017 16:13 - CONCLUSION: No acute intracranial abnormality. Jose Moreno MD Chest X-Ray 04/24/171546 Signed Impressions: Service Date/Time: Monday, April 24, 2017 16:31 - CONCLUSION: 1. Stable elevation of the right hemidiaphragm. 2. No acute abnormality or significant interval change. Edy Mendez MD (Kasandra Whitman) Assessment and Plan Problem List: (1) Acute renal failure ICD Codes: N17.9 - Acute kidney failure, unspecified Status: Acute Plan: Creatinine was around 1 in 2016 RISA most likely ATN from sepsis, renal hypoperfusion US shows right kidney is smaller, no obstruction UA with proteinuria, quantify, no hx of this in prior visits. Potassium has normalized Minimal improvement in renal function since arrival, continue to monitor Stop IVF, given lasix today, may repeat tomorrow Support blood pressure as needed Minimize non essential medications. Follow labs (2) Sepsis ICD Codes: A41.9 - Sepsis, unspecified organism Status: Acute Plan: Urosepsis, Klebsiella On Rocephin, Zosyn stopped WBC trending down Continue supportive care (3) UTI (urinary tract infection) ICD Codes: N39.0 - Urinary tract infection, site not specified Status: Acute Plan: See above (4) Chronic obstructive pulmonary disease with acute exacerbation ICD Codes: J44.1 - Acute exacerbation of chronic obstructive airways disease Status: Acute Plan: Chronic oxygen therapy Follow respiratory status (Kasandra Whitman) Assessment and Plan patient was seen and examined. Agree with above assessment and plan. UA is abnormal, perhaps due to UTI. Not a diabetic. Renal function has not improved in the last few days. Order serologies. Repeat UA. Quantify proteinuria. (Yusef Glez MD) Problem Qualifiers (1) Acute renal failure: Qualified Codes: N17.9 - Acute kidney failure, unspecified (2) Sepsis: Qualified Codes: A41.9 - Sepsis, unspecified organism (3) UTI (urinary tract infection): Qualified Codes: N39.0 - Urinary tract infection, site not specified; R31.9 - Hematuria, unspecified Kasandra Whitman Apr 27, 2017 12:05 Yusef Glez MD Apr 27, 2017 16:30
--- NOTE | 2017-04-27 12:11 | RADRPT ---
EXAM DATE/TIME: 04/27/2017 10:18 [facility] COMPARISON: CHEST PA & LAT, January 29, 2015, 12:18. INDICATIONS : Short of breath. MEDICAL HISTORY : Hypertension. Cardiovascular disease. Chronic obstructive pulmonary disease. SURGICAL HISTORY : None. ENCOUNTER: Subsequent ACUITY: 2 days PAIN SCORE: 0/10 LOCATION: Bilateral chest FINDINGS: PA and lateral views of the chest demonstrate chronic elevation right hemidiaphragm. Diminished lung volumes. Heart mildly enlarged. Retrocardiac density again seen. Right basilar density. The cardiome diastinal contours are unremarkable. Osseous structures are intact. CONCLUSION: Chronic elevation right hemidiaphragm with right basal atelectasis. Boby Michel MD on April 27, 2017 at 12:08 Board Certified Radiologist. This report was verified electronically.
[2017-04-27] MEDS: cefTRIAXone INJ 1,000 MG in SODIUM CHLORIDE 0.9% INJ 100 ML IV SCH (13:39)
[2017-04-27] MEDS: PRAVASTATIN SOD 80 MG TAB PO SCH (20:28)
--- NOTE | 2017-04-27 23:43 | HHI.FPPN ---
Addendum to progress note ADDENDUM Reason for addendum: Additonal documentation Additional information Resident team was paged at 21:28 regarding fall of patient. Per nurse, patient' s fall was unwitnessed; patient was discovered on the ground, in front of chair in room. Patient's story was inconsistent but it appeared that patient attempted to move from bed to chair, which moved out behind patient as she tried to sit down. The nurse reported that patient did not hit her head and was pain free. She recorded an elevated blood pressure of 186/108 once patient was helped into chair. The blood pressure was repeated while on the phone with resident; repeat blood pressure was recorded as 147/88 at that time. When resident team arrived at patient's bedside, patient was sleeping in chair. She appeared to be in no acute distress. She woke up/opened her eyes when addressed. Patient appeared lethargic throughout encounter. She answered only some questions and changed her story on multiple occasions. When asked about pain, she initially denied pain, then reported head pain as well as general body aches, which she stated were new since the fall. Patient confirmed that she was trying to move from bed to chair and then may have hit her head as she fell to the ground. She denied chest pain and shortness of breath. Physical Exam: Cardiovascular: RRR, no murmurs appreciated. Respiratory: Shallow breaths taken when instructed to take deep breaths; breath sounds difficult to appreciate. Neurological: Awake and alert but lethargic. Cranial nerves II through XII grossly intact. Extraocular motion grossly intact. Sensation intact. Generalized weakness noted. Normal but limited speech. Assessment and Plan: - Possible trauma to head - rule out bleed * CT head without contract - pending. * Q2hr x3, Q4hr neuro checks - ordered. * Q4hr vitals - in place. - Fall precautions addressed with nurse. Patient seen and discussed with Dr. Ivan. Kassidy Berg MD R1 Apr 27, 2017 23:43
[2017-04-28] VITALS (14 sets, daily range): BP systolic 66–190; BP diastolic 58–100; PULSE 83–92; RESP 14–20; TEMP 97.2–98.1; O2SAT 92–100
[2017-04-28 00:22] LABS: COMPLEMENT C3 175 MG/DL (90-180); COMPLEMENT C4 33 MG/DL (10-40)
--- NOTE | 2017-04-28 00:50 | RADRPT ---
EXAM DATE/TIME: 04/28/2017 00:07 [facility] COMPARISON: No previous studies available for comparison. INDICATIONS : Trauma; fall. RADIATION DOSE: 68.62 CTDIvol (mGy) ; Tabletop CT Head MEDICAL HISTORY : Cardiovascular disease. Hypertension. Chronic obstructive pulmonary disease. SURGICAL HISTORY : Appendectomy. Hysterectomy. ENCOUNTER: Initial ACUITY: 1 day PAIN SCALE: 3/10 LOCATION: cranial TECHNIQUE: Multiple contiguous axial images were obtained of the head. Using automated exposure control and adj ustment of the mA and/or kV according to patient size, radiation dose was kept as low as reasonably a chievable to obtain optimal diagnostic quality images. DICOM format image data is available electro nically for review and comparison. FINDINGS: Right sided ventriculostomy tube is unchanged from April 24 and crosses midline. Ventricular size i s stable. No acute intracranial hemorrhage, mass or shift. No acute bony abnormalities. CONCLUSION: 1. Right sided ventriculostomy unchanged. No acute intracranial abnormalities. Moises Estevez MD on April 28, 2017 at 0:44 Board Certified Radiologist. This report was verified electronically.
[2017-04-28] MEDS: RESP: ALBUTEROL 2.5 MG/IPRATROPIUM 0.5 MG NEB (SCH) NEB ×6 (03:21→23:31)
[2017-04-28] MEDS: LEVOTHYROXINE SODIUM 50 MCG TAB PO SCH (06:04)
[2017-04-28 07:10] LABS: BACTERIA, URINE RARE /hpf; BILIRUBIN, URINE NEG (NEG); BLOOD, URINE MOD (NEG); GLUCOSE,URINE NEG (NEG); KETONE, URINE 10 mg/dL (NEG); NITRITE,URINE NEG (NEG); PH, URINE 5.5 (5.0-8.5); URINE COLOR YELLOW (YELLW/STRAW); URINE LEUKOCYTE ESTERASE TRACE (NEG); WHITE BLOOD CELL CLUMPS RARE
--- NOTE | 2017-04-28 08:27 | HHI.FPPN ---
Subjective Remarks Resident team paged overnight per nurse. Patient states that she fell while trying to get up and go to the commode. She reports that she was not confused. Nurse found her on the ground. She reports this morning that she did not hit her head. CT scan was negative. Patient is lying in recliner this AM. Currently on 4.5L O2 NC. She appears moderately fatigue. She comes in and out of sleeping. Hard to hold a conversation. She reports that she has been fatigue since admission. She is oriented to person, place, and time. However, she only speaks using a few words. She denies CP, SOB, back pain, N/V, and abdominal pain. (Leni Gaytan MD R1) Objective Vitals Vital Signs Date Time Temp Pulse Resp B/P (MAP) Pulse Ox O2 Delivery O2 Flow Rate FiO2 04/28/17 07:36 Nasal Cannula 3.50 04/28/17 04:00 97.3 91 20 103/58 (73) 92 04/28/17 03:58 84 04/28/17 03:30 97.3 88 18 178/98 (124) 99 04/28/17 03:22 98 Nasal Cannula 4.00 04/28/17 00:24 87 04/28/17 00:00 97.2 92 20 66/92 (83) 100 04/27/17 23:30 99.2 97 20 166/92 (116) 100 04/27/17 22:30 98.0 87 20 150/88 (108) 98 04/27/17 21:30 97.7 88 18 147/88 (107) 98 04/27/17 20:45 95 Nasal Cannula 4.00 04/27/17 20:30 98.9 105 21 186/108 (134) 95 04/27/17 20:16 87 04/27/17 20:00 98.9 105 21 194/125 (148) 95 04/27/17 20:00 98.9 105 21 195/125 (148) 95 04/27/17 16:00 85 04/27/17 16:00 98.5 86 20 159/98 (118) 96 04/27/17 15:24 94 Nasal Cannula 4.00 04/27/17 12:28 94 Nasal Cannula 4.00 04/27/17 12:00 97.6 89 15 139/64 (89) 95 04/27/17 10:00 126/76 (93) I/O 04/27/17 04/27/17 04/27/17 04/28/17 04/28/17 04/28/17 07:00 15:00 23:00 07:00 15:00 23:00 Intake Total 950 ml 1240 ml 360 ml Balance 950 ml 1240 ml 360 ml Intake Oral 320 ml 480 ml 360 ml IV Total 630 ml 760 ml # Voids 2 2 3 (Leni Gaytan MD R1) Result Diagram: 04/27/1770504/27/17705 Objective Remarks GENERAL: obese F, sitting in recliner, on 4.5L o2 NC, in NAD SKIN: small bruise on right upper eye- stitches in place, no acute bleeding, healing, few area of ecchymosis on upper extremities EYES: Pupils dilated, reactive to light CARDIOVASCULAR: Regular rate and rhythm without murmurs, gallops, or rubs. RESPIRATORY: decreased air movement on R lung base, expected since pt has hemidiaphragm on R side based on CXR GASTROINTESTINAL: Abdomen soft, non-tender, nondistended. No hepato-splenomegaly , or palpable masses. No guarding. MUSCULOSKELETAL: trace pitting edema b/l NEUROLOGICAL: fatigue, oriented to person, place, and time, CNII-XII intact. Strength 4/5 in upper extremities. Strength 3/5 in lower extremities. Sensation intact throughout. (Leni Gaytan MD R1) A/P Assessment and Plan 57 yr old F w/ PMHx of status epilepticus and pseudotumor cerebri s/p [employer] shunt placement 2012 presents via EMS for lethargy. Discharge Planning Pending clinical improvement Will need PT at rehab (Leni Gaytan MD R1) Attending Attestation Patient examined separately from medical team this afternoon at approximately 13 :45 I have read the above resident note and agree with the assessment/plan as discussed with me I was involved in all medical decision making for this patient Patient had fall overnight when she tried to move from bed to chair - CT of the head was performed due to concern of her hitting her head, it was read as negative Patient remains somewhat lethargic, ABG was performed showing a pH of 7.15 and a PCO2 of 64 -Patient to be placed on BiPAP with repeat ABG in 2 hours -Closer interview with patient shows that she is usually on BiPAP at home for sleep, but has not been on here If ABG does not improve with BiPAP, consider [place] [facility] [place] of hypercapnic respiratory failure Adrian Cruz MD (Adrian Cruz MD) Problem List: (1) Sepsis secondary to UTI ICD Codes: A41.9 - Sepsis, unspecified organism; N39.0 - Urinary tract infection, site not specified Plan: Patient meets sepsis criteria with being febrile, tachycardia, leukocytosis and known source of infection with UTI as well as bacteremia Lactic acid 1.1 Blood cultures and urine culture positive for Klebsiella, pansensitive, drawn on 04/24/17 -Repeat blood cultures ordered 04/25/17-NGTD -Repeat urine culture ordered 04/27, pending IV antibiotics: Continue Rocephin 1,000 mg IV q24h (started 04/26) Discontinued Zosyn 3.375 g IV every 6 hours (04/25-04/26) IV fluids- discontinued due to concern for fluid overload -Received 1 L bolus 3 in the emergency department as well as 1 L bolus 1 upon arriving to the floor Tylenol 650mg PO q4h PRN fever Monitor on telemetry Vitals every 4 hours (2) Bacteremia due to Gram-negative bacteria ICD Codes: R78.81 - Bacteremia Plan: Treatment as per sepsis above (3) Acute renal failure ICD Codes: N17.9 - Acute kidney failure, unspecified Status: Acute Plan: Creatinine trending up, renal function has not improved in the last few days. Likely due to hypoperfusion from sepsis and bacteremia Renal Ultrasound demonstrated asymmetry, right smaller than left. no evidence of hydronephrosis. Nephrology consulted, recommendations appreciated Repeat UA improved from prior Urine culture 04/27 pending Quantify proteinuria Renal function panel ordered Avoid nephrotoxic agents (4) Weakness ICD Codes: R53.1 - Weakness Plan: s/p fall, please refer to Dr. Joseph's note regarding fall CT head negative Neurochecks q4h ordered Ammonia, Vit B12, TSH ordered and pending (5) Chronic respiratory failure ICD Codes: J96.10 - Chronic respiratory failure, unspecified whether with hypoxia or hypercapnia Status: Acute Plan: On home 4.5L NC Continue home Qvar 80mcg inh and prednisone 20mg PO daily Duoneb q4h scheduled CPT Previous work up: Repeat CXR on 04/27 showed chronic elevation right hemidiaphragm with right basal atelectasis BNP wnl Lactic acid improved 0.6 from 1.1 (6) History of seizures ICD Codes: Z87.898 - History of seizure Status: Acute Plan: Subtherapeutic phenytoin at 8.0 -EEG demonstrated mild to moderate slowing may be due to encephalopathic process , may be due to patient's febrile illness, but no epileptiform features -Continue phenytoin to 200 mg p.o. twice daily (increased from 200 mg nightly, 100 mg every morning) -Continue home trileptal 150mg PO bid (7) Right shoulder pain ICD Codes: M25.511 - Pain in right shoulder Plan: R shoulder X-ray negative for fracture or dislocation Pain most likely MSK related Physical therapy consulted to evaluate patient (8) Right eyelid laceration ICD Codes: S01.111A - Laceration without foreign body of right eyelid and periocular area, initial encounter Plan: Laceration repaired by ED physician. (9) Hypothyroidism ICD Codes: E03.9 - Hypothyroidism Status: Chronic Plan: -continue home levothyroxine 50mcg (M,Tu,Th, ,Sun), 200mcg (Sun, Sun) (10) Hyperlipidemia ICD Codes: E78.5 - Hyperlipidemia Status: Chronic Plan: Continue home Pravastatin 80mg PO hs (11) Hypertension ICD Codes: I10 - Hypertension Status: Chronic Plan: Held home Enalapril due to RISA (12) Depression ICD Codes: F32.9 - Major depressive disorder, single episode, unspecified Plan: Continue home Lexapro 20mg PO daily (13) Nutrition, metabolism, and development symptoms ICD Codes: R63.8 - Other symptoms and signs concerning food and fluid intake Plan: Diet: Regular Fluids: none due to concern for fluid overload Electrolytes: monitor vitals q4h, monitor I & Os DVT ppx: heparin 5000 units q12hr PT requested, will need PT at rehab (Leni Gaytan MD R1) Problem Qualifiers (1) Acute renal failure: Qualified Codes: N17.9 - Acute kidney failure, unspecified Leni Gaytan MD R1 Apr 28, 2017 08:27 Adrian Cruz MD Apr 28, 2017 14:09
[2017-04-28 09:16] LABS: AUTOMATED NEUTROPHIL # 11.4 TH/MM3 (1.8-7.7); BASOPHIL % 0.2 % (0.0-2.0); EOSINOPHIL % 0.3 % (0.0-4.0); HEMATOCRIT 34.5 % (35.0-46.0); LYMPH % 5.1 % (9.0-44.0); LYMPHOCYTE # 0.7 TH/MM3 (1.0-4.8); MEAN CELL VOLUME 91.7 FL (80.0-100.0); MEAN CORPUSCULAR HEMOGLOBIN 29.3 PG (27.0-34.0); MEAN PLATELET VOLUME 9.3 FL (7.0-11.0); MONO % 12.7 % (0.0-8.0); MONOCYTE # 1.8 TH/MM3 (0-0.9); NEUT % 81.7 % (16.0-70.0); PLATELET COUNT 181 TH/MM3 (150-450); RED BLOOD COUNT 3.77 MIL/MM3 (4.00-5.30); RED CELL DISTRIBUTION WIDTH 14.9 % (11.6-17.2); WHITE BLOOD COUNT 13.9 TH/MM3 (4.0-11.0)
[2017-04-28] MEDS: HEPARIN SODIUM - SQ 10,000 UNITS/ML VIAL SQ SCH ×2 (10:09→21:12)
[2017-04-28] MEDS: PHENYTOIN SODIUM 100 MG CAP PO SCH ×2 (10:09→21:12)
[2017-04-28] MEDS: predniSONE 20 MG TAB PO SCH (10:09)
[2017-04-28] MEDS: ESCITALOPRAM OXALATE 20 MG TAB PO SCH (10:09)
[2017-04-28 10:10] LABS: BANDS 6 % (0-6); LYMPHOCYTES 5 % (9-44); METAMYELOCYTES 3 % (0-1); MONOCYTES 4 % (0-8); MYELOCYTES 5 % (0-0); NEUTROPHIL # MANUAL DIFF 12.5 TH/MM3 (1.8-7.7); POLYS (SEG NEUTROPHILS) 76 % (16-70)
[2017-04-28] MEDS: OXcarbazepine 150 MG TAB PO SCH ×2 (10:10→21:12)
[2017-04-28 10:12] LABS: CALCIUM 8.5 MG/DL (8.5-10.1); CREATININE 2.51 MG/DL (0.50-1.00)
[2017-04-28 10:13] LABS: ALBUMIN 2.3 GM/DL (3.4-5.0); CALCIUM 8.5 MG/DL (8.5-10.1); CREATININE 2.57 MG/DL (0.50-1.00)
[2017-04-28] MEDS: SODIUM CHLORIDE 0.9% FLUSH 10 ML FLUSH IV FLUSH SCH ×2 (10:24→21:12)
[2017-04-28] MEDS: BECLOMETHASONE DIPROPIONATE 80 MCG/ACT 8.7 GM INHALER INH SCH ×2 (10:24→21:00)
--- NOTE | 2017-04-28 11:41 | HHI.NPPN ---
Subjective History of Present Illness This is a morbidly obese female patient who was admitted on 04/24 for AMS, fever/chills at home, frequent falls. She had fallen and suffered right ocular trauma, was down for a few hours. On arrival she had UTI, urine and blood cultures grew Klebsiella, she was started on antibiotics. In 2015 her creatinine was 1. Since arrival it has been 2.5- 2.6, today it is 2.7. She has been given IVF boluses, is on NS @ 50, and is on lasix intermittently, with minimal improvement in renal indices. We were consulted to assist. She is awake , reporting fatigue. Urine output 700 past 24 hrs. Additional Remarks OOB in chair. Dosing off in between questions. Denies any SOB and only mild edema noted. Poor appetite (Selma Baker) Review of Systems General Constitutional: Fatigue (Selma Baker) Respiratory Respiratory Remarks Denies any SOB (Selma Baker) Cardiovascular Cardiac Remarks Denies any CP (Selma Baker) Gastrointestinal GI Remarks Denies any abdominal pain (Selma Baker) Objective Data Data Vital Signs Date Time Temp Pulse Resp B/P (MAP) Pulse Ox O2 Delivery O2 Flow Rate FiO2 04/28/17 08:00 98.1 88 19 168/100 (122) 99 04/28/17 07:36 Nasal Cannula 3.50 04/28/17 04:00 97.3 91 20 103/58 (73) 92 04/28/17 03:58 84 04/28/17 03:30 97.3 88 18 178/98 (124) 99 04/28/17 03:22 98 Nasal Cannula 4.00 04/28/17 00:24 87 04/28/17 00:00 97.2 92 20 66/92 (83) 100 04/27/17 23:30 99.2 97 20 166/92 (116) 100 04/27/17 22:30 98.0 87 20 150/88 (108) 98 04/27/17 21:30 97.7 88 18 147/88 (107) 98 04/27/17 20:45 95 Nasal Cannula 4.00 04/27/17 20:30 98.9 105 21 186/108 (134) 95 04/27/17 20:16 87 04/27/17 20:00 98.9 105 21 194/125 (148) 95 04/27/17 20:00 98.9 105 21 195/125 (148) 95 04/27/17 16:00 85 04/27/17 16:00 98.5 86 20 159/98 (118) 96 04/27/17 15:24 94 Nasal Cannula 4.00 04/27/17 12:28 94 Nasal Cannula 4.00 04/27/17 12:00 97.6 89 15 139/64 (89) 95 (Selma Baker) -: 04/28/17 0859 04/28/17 0859 Microbiology 04/28/17 Urine Culture, Received Pending Imaging Last Impressions Head CT 04/27/17 0000 Signed Impressions: Service Date/Time: Friday, April 28, 2017 00:07 - CONCLUSION: 1. Right sided ventriculostomy unchanged. No acute intracranial abnormalities. Moises Estevez MD Chest X-Ray 04/27/17 0000 Signed Impressions: Service Date/Time: Thursday, April 27, 2017 10:18 - CONCLUSION: Chronic elevation right hemidiaphragm with right basal atelectasis. Boby Michel MD Renal Ultrasound 04/25/17 0000 Signed Impressions: Service Date/Time: Tuesday, April 25, 2017 09:14 - CONCLUSION: Renal size asymmetry, right smaller than left. No evidence of hydronephrosis Rodney Guerrero MD Shoulder X-Ray 04/24/17 0000 Signed Impressions: Service Date/Time: Monday, April 24, 2017 19:35 - CONCLUSION: No definite acute bony fracture or joint dislocation. Adrian Encarnacion MD (Selma Baker) Physical Exam General Appearance: No Acute Distress, Comfortable, Obese (Selma Baker) Eyes Eye Exam: Pupils Equal (Selma Baker) Throat Throat Remarks Dry mouth (Selma Baker) Neck Neck Exam: Neck Supple (Selma Baker) Pulmonary Resp Exam: Breath Sounds Equal, No Distress, Decreased Bases (Selma Baker) Cardiology CV Exam: Regular (Selma Baker) Gastrointestinal/Abdomen GI Exam: Soft, Non-Tender (Selma Baker) Genitourinary Exam: Flank Non-Tender (Selma Baker) Integumentary Skin Exam: Warm, Dry (Selma Baker) Extremeties Extremities Exam: Trace Edema (Selma Baker) Neurologic Neuro Remarks delayed (Selma Baker) Assessment/Plan Problem List: (1) Acute renal failure ICD Codes: N17.9 - Acute kidney failure, unspecified Status: Acute Plan: Creatinine was around 1 in 2016 RISA most likely ATN from sepsis, renal hypoperfusion US shows right kidney is smaller, no obstruction UA with proteinuria, quantify, no hx of this in prior visits. Potassium WNL Minimal improvement in renal function since arrival, continue to monitor Creatinine only slightly improved at 2.51 from 2.57 IVF's have been stopped UOP at 700 ml yesterday Plan Strict I+O Continue lasix Avoid nephrotoxins Continue to monitor urinary output and labs. (2) Sepsis ICD Codes: A41.9 - Sepsis, unspecified organism Status: Acute Plan: Urosepsis, Klebsiella On Rocephin, Zosyn stopped WBC trending down Continue supportive care (3) UTI (urinary tract infection) ICD Codes: N39.0 - Urinary tract infection, site not specified Status: Acute Plan: See above (4) Chronic obstructive pulmonary disease with acute exacerbation ICD Codes: J44.1 - Acute exacerbation of chronic obstructive airways disease Status: Acute Plan: Chronic oxygen therapy Follow respiratory status (Selma Baker) Problem List: (1) Acute renal failure ICD Codes: N17.9 - Acute kidney failure, unspecified Status: Acute Plan: Creatinine was around 1 in 2016 RISA most likely ATN from sepsis, renal hypoperfusion US shows right kidney is smaller, no obstruction UA with proteinuria, quantify, no hx of this in prior visits. Potassium WNL Minimal improvement in renal function since arrival, continue to monitor Creatinine is almost same, at 2.5, K is normal. IVF's have been stopped UOP at 700 ml yesterday Plan Strict I+O Continue Lasix Avoid nephrotoxins Continue to monitor urinary output and labs. Patient seen and examined, agree with above. (2) Sepsis ICD Codes: A41.9 - Sepsis, unspecified organism Status: Acute Plan: Urosepsis, Klebsiella On Rocephin, Zosyn stopped WBC trending down Continue supportive care (3) UTI (urinary tract infection) ICD Codes: N39.0 - Urinary tract infection, site not specified Status: Acute Plan: See above (4) Chronic obstructive pulmonary disease with acute exacerbation ICD Codes: J44.1 - Acute exacerbation of chronic obstructive airways disease Status: Acute Plan: Chronic oxygen therapy Follow respiratory status (Cale Treadwell MD) Problem Qualifiers (1) Acute renal failure: Qualified Codes: N17.9 - Acute kidney failure, unspecified (2) Sepsis: Qualified Codes: A41.9 - Sepsis, unspecified organism (3) UTI (urinary tract infection): Qualified Codes: N39.0 - Urinary tract infection, site not specified; R31.9 - Hematuria, unspecified Selma Baker Apr 28, 2017 11:40 Cale Treadwell MD Apr 28, 2017 15:10
[2017-04-28] MEDS ORDERED: SODIUM BICARBONATE 8.4% INJ 50 MEQ/50 ML SYR IV PUSH ONE ×2 (14:00→18:30)
[2017-04-28] MEDS: cefTRIAXone INJ 1,000 MG in SODIUM CHLORIDE 0.9% INJ 100 ML IV SCH (14:19)
[2017-04-28] MEDS: PRAVASTATIN SOD 80 MG TAB PO SCH (21:12)
[2017-04-29] VITALS (9 sets, daily range): BP systolic 164–190; BP diastolic 85–106; PULSE 77–87; RESP 14–20; TEMP 97.4–98.6; O2SAT 96–100
[2017-04-29] MEDS: RESP: ALBUTEROL 2.5 MG/IPRATROPIUM 0.5 MG NEB (SCH) NEB ×2 (03:03→09:37)
[2017-04-29] MEDS: LEVOTHYROXINE SODIUM 50 MCG TAB PO SCH (05:51)
[2017-04-29] MEDS: OXcarbazepine 150 MG TAB PO SCH ×2 (09:02→21:40)
[2017-04-29] MEDS: predniSONE 20 MG TAB PO SCH (09:03)
[2017-04-29] MEDS: PHENYTOIN SODIUM 100 MG CAP PO SCH ×2 (09:03→21:40)
[2017-04-29] MEDS: SODIUM CHLORIDE 0.9% FLUSH 10 ML FLUSH IV FLUSH SCH ×2 (09:03→21:00)
[2017-04-29] MEDS: ESCITALOPRAM OXALATE 20 MG TAB PO SCH (09:03)
[2017-04-29] MEDS: HEPARIN SODIUM - SQ 10,000 UNITS/ML VIAL SQ SCH ×2 (09:03→21:41)
[2017-04-29] MEDS: BECLOMETHASONE DIPROPIONATE 80 MCG/ACT 8.7 GM INHALER INH SCH ×2 (09:05→21:00)
--- NOTE | 2017-04-29 11:00 | HHI.FPPN ---
Subjective Remarks No acute events overnight. Pt lying in recliner this morning on 3L O2 NC at 96% . Patient appears more alert this morning, speaking more compared to prior. She endorses SOB. Otherwise, she denies fevers, CP, abdominal pain, calf pain, and N /V. BM this morning. (Leni Gaytan MD R1) Objective Vitals Vital Signs Date Time Temp Pulse Resp B/P (MAP) Pulse Ox O2 Delivery O2 Flow Rate FiO2 04/29/17 09:38 96 Nasal Cannula 3.00 04/29/17 08:00 98.3 82 14 164/85 (111) 99 04/29/17 04:00 97.5 82 16 180/106 (130) 97 04/29/17 04:00 Bi-Pap 04/29/17 04:00 78 04/29/17 03:03 98 30 04/29/17 00:00 84 04/29/17 00:00 97.4 81 16 183/106 (131) 98 04/29/17 00:00 Bi-Pap 04/28/17 23:32 96 30 04/28/17 21:14 BiPAP 30 04/28/17 21:14 95 30 04/28/17 20:00 97.3 88 14 180/89 (119) 98 04/28/17 20:00 Bi-Pap 04/28/17 20:00 83 04/28/17 17:00 Nasal Cannula 3.50 04/28/17 16:13 96 30 04/28/17 16:00 84 04/28/17 13:50 96 30 04/28/17 12:00 86 04/28/17 12:00 Nasal Cannula 3.50 04/28/17 12:00 97.6 83 17 190/95 (126) 98 I/O 04/28/17 04/28/17 04/28/17 04/29/17 04/29/17 04/29/17 07:00 15:00 23:00 07:00 15:00 23:00 Intake Total 360 ml Output Total 600 ml 400 ml Balance 360 ml -600 ml -400 ml Intake Oral 360 ml Output Urine Total 600 ml 400 ml # Voids 3 (Leni Gaytan MD R1) Result Diagram: 04/28/1759 04/28/1759 Objective Remarks GENERAL: obese F, sitting in recliner, on 3L o2 NC, in NAD SKIN: small bruise on right upper eye- stitches in place, no acute bleeding, healing, few area of ecchymosis on upper extremities EYES: Pupils dilated, reactive to light CARDIOVASCULAR: Regular rate and rhythm without murmurs, gallops, or rubs. RESPIRATORY: decreased air movement and bowel sounds in R lung base, expected since pt has hemidiaphragm on R side based on CXR GASTROINTESTINAL: Abdomen soft, non-tender, nondistended. No hepato-splenomegaly , or palpable masses. No guarding. MUSCULOSKELETAL: trace pitting edema b/l NEUROLOGICAL: fatigue, oriented to person, place, and time, CNII-XII intact. Strength 4/5 in upper extremities. Strength 3/5 in lower extremities. Sensation intact throughout. (Leni Gaytan MD R1) A/P Assessment and Plan 57 yr old F w/ PMHx of status epilepticus and pseudotumor cerebri s/p [employer] shunt placement 2012 presents via EMS for lethargy. Discharge Planning Pending clinical improvement Will need PT at rehab (Leni Gaytan MD R1) Attending Attestation Pt. examined with resident physician during rounds and case discussed with resident physicians. I have read the above note and agree with the assessment and plan as discussed with me. I was involved in all medical decision making for this patient. Adrian Cruz MD (Adrian Cruz MD) Problem List: (1) Sepsis secondary to UTI ICD Codes: A41.9 - Sepsis, unspecified organism; N39.0 - Urinary tract infection, site not specified Plan: Patient meets sepsis criteria with being febrile, tachycardia, leukocytosis and known source of infection with UTI as well as bacteremia Lactic acid 1.1 Blood cultures and urine culture positive for Klebsiella, pansensitive, drawn on 04/24/17 -Repeat blood cultures ordered 04/25/17-NGTD -Repeat urine culture ordered 04/27 pending IV antibiotics: Continue Rocephin 1,000 mg IV q24h (started 04/26) Discontinued Zosyn 3.375 g IV every 6 hours (04/25-04/26) IV fluids- discontinued due to concern for fluid overload -Received 1 L bolus 3 in the emergency department as well as 1 L bolus 1 upon arriving to the floor Tylenol 650mg PO q4h PRN fever Monitor on telemetry Vitals every 4 hours (2) Bacteremia due to Gram-negative bacteria ICD Codes: R78.81 - Bacteremia Plan: Treatment as per sepsis above (3) Acute renal failure ICD Codes: N17.9 - Acute kidney failure, unspecified Status: Acute Plan: Creatinine trending up, minimal improvement in renal function since arrival Likely due to hypoperfusion from sepsis and bacteremia Renal Ultrasound demonstrated asymmetry, right smaller than left. no evidence of hydronephrosis. Nephrology consulted, recommendations appreciated Repeat UA improved from prior Urine culture 04/27 pending Quantify proteinuria Renal function panel ordered Avoid nephrotoxic agents (4) Chronic respiratory failure ICD Codes: J96.10 - Chronic respiratory failure, unspecified whether with hypoxia or hypercapnia Status: Acute Plan: On home 4.5L NC, hx of GOPAL on bipap at home Pulmonology consulted for worsening SOB, appreciate recommendations Continue home Qvar 80mcg inh and prednisone 20mg PO daily Duoneb q4h scheduled CPT Previous work up: Repeat CXR on 04/27 showed chronic elevation right hemidiaphragm with right basal atelectasis BNP wnl Lactic acid improved 0.6 from 1.1 (5) Weakness ICD Codes: R53.1 - Weakness Plan: s/p fall, please refer to Dr. Joseph's note regarding fall CT head negative Neurochecks q4h ordered Ammonia less than 10, Vit B12 1514, TSH wnl (6) History of seizures ICD Codes: Z87.898 - History of seizure Status: Acute Plan: Subtherapeutic phenytoin at 8.0 -EEG demonstrated mild to moderate slowing may be due to encephalopathic process , may be due to patient's febrile illness, but no epileptiform features -Continue phenytoin to 200 mg p.o. twice daily (increased from 200 mg nightly, 100 mg every morning) -Continue home trileptal 150mg PO bid (7) Right shoulder pain ICD Codes: M25.511 - Pain in right shoulder Plan: R shoulder X-ray negative for fracture or dislocation Pain most likely MSK related Physical therapy consulted to evaluate patient (8) Right eyelid laceration ICD Codes: S01.111A - Laceration without foreign body of right eyelid and periocular area, initial encounter Plan: Laceration repaired by ED physician. (9) Hypothyroidism ICD Codes: E03.9 - Hypothyroidism Status: Chronic Plan: -continue home levothyroxine 50mcg (M,,Th, ,Sun), 200mcg (Sun, Sun) (10) Hyperlipidemia ICD Codes: E78.5 - Hyperlipidemia Status: Chronic Plan: Continue home Pravastatin 80mg PO hs (11) Hypertension ICD Codes: I10 - Hypertension Status: Chronic Plan: Held home Enalapril due to RISA Amlodipine 10mg PO daily added per nephro (12) Depression ICD Codes: F32.9 - Major depressive disorder, single episode, unspecified Plan: Continue home Lexapro 20mg PO daily (13) Nutrition, metabolism, and development symptoms ICD Codes: R63.8 - Other symptoms and signs concerning food and fluid intake Plan: Diet: Regular Fluids: none due to concern for fluid overload Electrolytes: monitor vitals q4h, monitor I & Os DVT ppx: heparin 5000 units q12hr PT requested, will need PT at rehab (Leni Gaytan MD R1) Problem Qualifiers (1) Acute renal failure: Qualified Codes: N17.9 - Acute kidney failure, unspecified Leni Gaytan MD R1 Apr 29, 2017 11:00 Adrian Cruz MD Apr 29, 2017 21:13
--- NOTE | 2017-04-29 11:05 | HHI.NPPN ---
Subjective History of Present Illness This is a morbidly obese female patient who was admitted on 04/24 for AMS, fever/chills at home, frequent falls. She had fallen and suffered right ocular trauma, was down for a few hours. On arrival she had UTI, urine and blood cultures grew Klebsiella, she was started on antibiotics. In 2015 her creatinine was 1. Since arrival it has been 2.5- 2.6, today it is 2.7. She has been given IVF boluses, is on NS @ 50, and is on lasix intermittently, with minimal improvement in renal indices. We were consulted to assist. She is awake , reporting fatigue. Urine output 700 past 24 hrs. Additional Remarks OOB in chair. Mental status has improved since yesterday. Was on Bipap over night. Denies any SOB and only mild edema (Selma Baker) Review of Systems General Constitutional: Fatigue (Selma Baker) Respiratory Respiratory Remarks Denies any SOB (Selma Baker) Cardiovascular Cardiac Remarks Denies any CP (Selma Baker) Gastrointestinal GI Remarks Denies any abdominal pain (Selma Baker) Objective Data Data Vital Signs Date Time Temp Pulse Resp B/P (MAP) Pulse Ox O2 Delivery O2 Flow Rate FiO2 04/29/17 09:38 96 Nasal Cannula 3.00 04/29/17 08:00 98.3 82 14 164/85 (111) 99 04/29/17 04:00 97.5 82 16 180/106 (130) 97 04/29/17 04:00 Bi-Pap 04/29/17 04:00 78 04/29/17 03:03 98 30 04/29/17 00:00 84 04/29/17 00:00 97.4 81 16 183/106 (131) 98 04/29/17 00:00 Bi-Pap 04/28/17 23:32 96 30 04/28/17 21:14 BiPAP 30 04/28/17 21:14 95 30 04/28/17 20:00 97.3 88 14 180/89 (119) 98 04/28/17 20:00 Bi-Pap 04/28/17 20:00 83 04/28/17 17:00 Nasal Cannula 3.50 04/28/17 16:13 96 30 04/28/17 16:00 84 04/28/17 13:50 96 30 04/28/17 12:00 86 04/28/17 12:00 Nasal Cannula 3.50 04/28/17 12:00 97.6 83 17 190/95 (126) 98 (Selma Baker. FORM MAKER PLASTER) -: 04/28/17 0859 04/28/17 0859 Physical Exam General Appearance: No Acute Distress, Comfortable, Obese (Selma Baker. FORM MAKER PLASTER) Eyes Eye Exam: Pupils Equal (Selma Baker. FORM MAKER PLASTER) Throat Throat Remarks Dry mouth (Selma Baker M. FORM MAKER PLASTER) Neck Neck Exam: Neck Supple (Selma Baker. FORM MAKER PLASTER) Pulmonary Resp Exam: Breath Sounds Equal, No Distress, Decreased Bases (Selma Baker M. FORM MAKER PLASTER) Cardiology CV Exam: Regular (Selma Baker. FORM MAKER PLASTER) Gastrointestinal/Abdomen GI Exam: Soft, Non-Tender (Selma Baker M. FORM MAKER PLASTER) Genitourinary Exam: Flank Non-Tender (Selma Baker M. FORM MAKER PLASTER) Integumentary Skin Exam: Warm, Dry (Selma Baker M. FORM MAKER PLASTER) Extremeties Extremities Exam: Trace Edema (Lisha Bakerne M. FORM MAKER PLASTER) Neurologic Neuro Exam: Alert, Awake, Oriented (Lisha Bakerne M. FORM MAKER PLASTER) Psychiatric Psych Exam: Appropriate Responses (Selma BakerP) Assessment/Plan Problem List: (1) Acute renal failure ICD Codes: N17.9 - Acute kidney failure, unspecified Status: Acute Plan: Creatinine was around 1 in 2016 RISA most likely ATN from sepsis, renal hypoperfusion US shows right kidney is smaller, no obstruction UA with proteinuria, quantify, no hx of this in prior visits. Potassium WNL yesterday Minimal improvement in renal function since arrival, continue to monitor Good UOP Plan Strict I+O Avoid nephrotoxins Continue to monitor urinary output and labs. On BIPAP over night and sodium bicarb given on 3 liters now HTN with SBP in the 180's will add amlodipine Labs pending today (2) Sepsis ICD Codes: A41.9 - Sepsis, unspecified organism Status: Acute Plan: Urosepsis, Klebsiella On Rocephin, Zosyn stopped WBC trending down Continue supportive care (3) UTI (urinary tract infection) ICD Codes: N39.0 - Urinary tract infection, site not specified Status: Acute Plan: See above (4) Chronic obstructive pulmonary disease with acute exacerbation ICD Codes: J44.1 - Acute exacerbation of chronic obstructive airways disease Status: Acute Plan: Chronic oxygen therapy Follow respiratory status (Selma Baker) Problem List: (1) Acute renal failure ICD Codes: N17.9 - Acute kidney failure, unspecified Status: Acute Plan: Creatinine was around 1 in 2016 RISA most likely ATN from sepsis, renal hypoperfusion US shows right kidney is smaller, no obstruction UA with proteinuria, quantify, no hx of this in prior visits. Potassium WNL yesterday Minimal improvement in renal function since arrival, continue to monitor Good UOP Plan Strict I+O Avoid nephrotoxins Continue to monitor urinary output and labs. On BIPAP over night and sodium bicarb given on 3 liters now HTN with SBP in the 180's will add amlodipine Labs pending today Patient seen and examined, agree with above. (2) Sepsis ICD Codes: A41.9 - Sepsis, unspecified organism Status: Acute Plan: Urosepsis, Klebsiella On Rocephin, Zosyn stopped WBC trending down Continue supportive care (3) UTI (urinary tract infection) ICD Codes: N39.0 - Urinary tract infection, site not specified Status: Acute Plan: See above (4) Chronic obstructive pulmonary disease with acute exacerbation ICD Codes: J44.1 - Acute exacerbation of chronic obstructive airways disease Status: Acute Plan: Chronic oxygen therapy Follow respiratory status (Cale Treadwell MD) Problem Qualifiers (1) Acute renal failure: Qualified Codes: N17.9 - Acute kidney failure, unspecified (2) Sepsis: Qualified Codes: A41.9 - Sepsis, unspecified organism (3) UTI (urinary tract infection): Qualified Codes: N39.0 - Urinary tract infection, site not specified; R31.9 - Hematuria, unspecified Selma Baker Apr 29, 2017 11:05 Cale Treadwell MD Apr 30, 2017 12:58
[2017-04-29] MEDS: cefTRIAXone INJ 1,000 MG in SODIUM CHLORIDE 0.9% INJ 100 ML IV SCH (15:07)
[2017-04-29 17:30] LABS: BICARBONATE 21.6 MEQ/L (21.0-32.0); CALCIUM 8.6 MG/DL (8.5-10.1); CREATININE 2.07 MG/DL (0.50-1.00)
[2017-04-29] MEDS: PRAVASTATIN SOD 80 MG TAB PO SCH (21:40)
[2017-04-30] VITALS (7 sets, daily range): BP systolic 161–175; BP diastolic 90–97; PULSE 58–86; RESP 16–22; TEMP 97.5–98.5; O2SAT 98–99
[2017-04-30] MEDS: ACETAMINOPHEN/HYDROcodone 325 MG/5 MG TAB PO PRN ×5 (03:51→21:51)
--- NOTE | 2017-04-30 05:32 | MB ---
cc: TAMMI NGUYEN MD DATE OF CONSULTATION 04/29/2017 REASON FOR CONSULTATION Shortness of breath. Respiratory failure. HISTORY OF PRESENT ILLNESS The patient is a 67-year-old female who is known to have history of status epilepticus, pseudotumor cerebri and history of LAMP STACK DEVELOPER shunt in 2012. She came into the hospital because she was feeling sick and she was found to have evidence of sepsis with UTI. The patient does have a history of sleep apnea and history of chronic hypoxemia and respiratory distress for which she is on oxygen 4.5 liters/minute and she does use BiPAP at home. She follows up with an outpatient fiscal services director, Dr. Melton. I was consulted to see the patient because of difficulty breathing. Per my discussion with her, she reports that she is breathing okay, she feels better right now compared to earlier. She does not have any coughing or wheezing right now. She is denying any chest pain. PAST MEDICAL HISTORY Reviewed in detail. She does have a long medical history that does include asthma and COPD. REVIEW OF SYSTEMS Reviewed. Negative except that which is mentioned in the HPI. Of note, she does have a history of collapse and paralyzed right hemidiaphragm. MEDICATIONS Reviewed in detail. PHYSICAL EXAMINATION GENERAL APPEARANCE: Obese. In no acute distress, laying in bed comfortably. VITAL SIGNS: Temperature 98.6, pulse 78, respiratory rate 20, blood pressure is 176/96. She is sating 100% on 3 liters nasal cannula. NECK: Trachea midline. LUNGS: Mild basilar crackles. HEART: Normal S1 and S2. ABDOMEN: Morbidly obese but soft, nontender. EXTREMITIES: Positive pitting edema. No cyanosis. NEUROLOGIC: Awake. She follows my commands. LABORATORY DATA Labs reviewed. WBC is 13.9, hemoglobin 11, platelets 181. Sodium 134, potassium 5.2. Her last blood gas drawn today shows pH 7.28, paCO2 51, paO2 is 103. She did have a chest x-ray on the that showed chronic elevation of the right hemidiaphragm with right basilar atelectasis. ASSESSMENT AND PLAN 1. COPD. 2. Respiratory acidosis. 3. Chronic hypoxemia. 4. Sleep apnea. 5. Morbid obesity. 6. Hypertension. 7. Hyperkalemia. 8. Renal failure. I do believe overall the patient is doing okay from a pulmonary perspective. I would recommend using noninvasive positive pressure ventilation with sleep on an as needed basis. I would recommend to use her BiPAP from home since the patient will be able to tolerate that better. I will wean off FIO2 for O2 sat more than or equal to 90%. I would recommend to continue the current antibiotic that the patient is on. I would recommend to continue DuoNeb and prednisone with the current dose 20 mg per day. I would like to attempt to contact her outpatient fiscal services director, Dr. Melton, to get more information about her pulmonary status. I would like to thank you for your consultation and I will continue to follow the patient with you. MD RONDA Childers/CAROLYN /9:48 PM /5:13 AM
[2017-04-30] MEDS: LEVOTHYROXINE SODIUM 50 MCG TAB PO SCH (05:49)
[2017-04-30 08:14] LABS: AUTOMATED NEUTROPHIL # 10.6 TH/MM3 (1.8-7.7); BASOPHIL % 0.2 % (0.0-2.0); EOSINOPHIL # 0.2 TH/MM3 (0-0.4); EOSINOPHIL % 1.2 % (0.0-4.0); HEMATOCRIT 30.6 % (35.0-46.0); LYMPH % 8.7 % (9.0-44.0); LYMPHOCYTE # 1.2 TH/MM3 (1.0-4.8); MEAN CELL VOLUME 89.7 FL (80.0-100.0); MEAN CORPUSCULAR HEMOGLOBIN 29.3 PG (27.0-34.0); MEAN CORPUSCULAR HGB CONC 32.7 % (32.0-36.0); MEAN PLATELET VOLUME 8.8 FL (7.0-11.0); MONO % 11.7 % (0.0-8.0); MONOCYTE # 1.6 TH/MM3 (0-0.9); NEUT % 78.2 % (16.0-70.0); PLATELET COUNT 290 TH/MM3 (150-450); RED BLOOD COUNT 3.42 MIL/MM3 (4.00-5.30); RED CELL DISTRIBUTION WIDTH 14.4 % (11.6-17.2); WHITE BLOOD COUNT 13.6 TH/MM3 (4.0-11.0)
[2017-04-30] MEDS: predniSONE 20 MG TAB PO SCH (08:41)
[2017-04-30] MEDS: BECLOMETHASONE DIPROPIONATE 80 MCG/ACT 8.7 GM INHALER INH SCH ×2 (08:41→21:49)
[2017-04-30] MEDS: OXcarbazepine 150 MG TAB PO SCH ×2 (08:41→21:49)
[2017-04-30] MEDS: ESCITALOPRAM OXALATE 20 MG TAB PO SCH (08:42)
[2017-04-30] MEDS: SODIUM CHLORIDE 0.9% FLUSH 10 ML FLUSH IV FLUSH SCH ×2 (08:42→21:52)
[2017-04-30] MEDS: PHENYTOIN SODIUM 100 MG CAP PO SCH ×2 (08:42→21:50)
[2017-04-30] MEDS: HEPARIN SODIUM - SQ 10,000 UNITS/ML VIAL SQ SCH ×2 (08:42→21:50)
[2017-04-30 08:44] LABS: BANDS 14 % (0-6); LYMPHOCYTES 12 % (9-44); METAMYELOCYTES 5 % (0-1); MONOCYTES 4 % (0-8); MYELOCYTES 3 % (0-0); NEUTROPHIL # MANUAL DIFF 11.3 TH/MM3 (1.8-7.7); POLYS (SEG NEUTROPHILS) 61 % (16-70); TOXIC GRANULATION 1+ (NORMAL); TOXIC VACUOLATION PRESENT (NONE SEEN)
[2017-04-30 08:47] LABS: OVALOCYTES 1+ (NORMAL)
--- NOTE | 2017-04-30 09:08 | HHI.FPPN ---
Subjective Remarks No acute events overnight. Pt sitting in recliner. She appears alert and wake. Asking questions and speaking more compared to prior. Currently on 3 L O2 NC. She does not have any complaints today. She denies CP, SOB, N/V, and abdominal pain. (Leni Gaytan MD R1) Remarks Patient examined separate from resident physicians this morning and states that she is feeling relatively well. She continues to complain of pain in her low back which is chronic in nature but seems to be exacerbated at this time. She is saturating well on 3 L nasal cannula is tolerating BiPAP at night without issue. She denies any chest pain, denies shortness of breath, denies nausea and vomiting, denies fevers or chills. (Adrian Cruz MD) Objective Vitals Vital Signs Date Time Temp Pulse Resp B/P (MAP) Pulse Ox O2 Delivery O2 Flow Rate FiO2 04/30/17 04:00 3.00 04/30/17 04:00 98.1 78 20 161/97 (118) 98 04/30/17 04:00 58 04/30/17 02:08 98 Nasal Cannula 3.00 04/30/17 00:00 Nasal Cannula 3.00 04/30/17 00:00 74 04/30/17 00:00 98.1 86 20 161/97 (118) 99 04/29/17 20:00 3.00 04/29/17 20:00 77 04/29/17 20:00 98.6 78 20 176/96 (122) 100 04/29/17 16:00 98.4 83 16 190/96 (127) 99 04/29/17 15:59 84 04/29/17 12:00 98.4 84 16 189/91 (123) 99 04/29/17 12:00 87 04/29/17 09:38 96 Nasal Cannula 3.00 I/O 04/29/17 04/29/17 04/29/17 04/30/17 04/30/17 04/30/17 07:00 15:00 23:00 07:00 15:00 23:00 Intake Total 480 ml 480 ml Output Total 400 ml 1001 ml Balance -400 ml -1001 ml 480 ml 480 ml Intake Oral 480 ml 480 ml Output Urine Total 400 ml 1000 ml Stool Total 1 ml # Voids 3 2 (Leni Gaytan MD R1) Result Diagram: 04/30/17 0620 04/29/17 1605 Objective Remarks GENERAL: obese F, sitting in recliner, on 3L o2 NC, in NAD SKIN: small bruise on right upper eye- stitches in place, no acute bleeding, healing, few area of ecchymosis on upper extremities EYES: Pupils dilated, reactive to light CARDIOVASCULAR: Regular rate and rhythm without murmurs, gallops, or rubs. RESPIRATORY: decreased air movement and bowel sounds in R lung base, expected since pt has hemidiaphragm on R side based on CXR GASTROINTESTINAL: Abdomen soft, non-tender, nondistended. No hepato-splenomegaly , or palpable masses. No guarding. MUSCULOSKELETAL: trace pitting edema b/l NEUROLOGICAL: alert, awake, oriented x3, CNII-XII intact. Strength 4/5 in upper extremities. Strength 3/5 in lower extremities. Sensation intact throughout. (Leni Gaytan MD R1) A/P Assessment and Plan 57 yr old F w/ PMHx of status epilepticus and pseudotumor cerebri s/p FOREIGN POLICY OFFICER shunt placement 2012 presents via EMS for lethargy. Discharge Planning Pending clinical improvement Will need PT at rehab (Leni Gaytan MD R1) Attending Attestation Patient examined and case discussed with resident physicians I have read the above note and agree with the assessment/plan as discussed with me I was involved in all medical decision making for this patient Adrian Cruz MD (Adrian Cruz MD) Problem List: (1) Sepsis secondary to UTI ICD Codes: A41.9 - Sepsis, unspecified organism; N39.0 - Urinary tract infection, site not specified Plan: Patient meets sepsis criteria with being febrile, tachycardia, leukocytosis and known source of infection with UTI as well as bacteremia Lactic acid 1.1 Blood cultures and urine culture positive for Klebsiella, pansensitive, drawn on 04/24/17 -Repeat blood cultures ordered 04/25/17-NGTD -Repeat urine culture ordered 04/27 NGTD IV antibiotics: Continue Rocephin 1,000 mg IV q24h (started 04/26) Discontinued Zosyn 3.375 g IV every 6 hours (04/25-04/26) IV fluids- discontinued due to concern for fluid overload -Received 1 L bolus 3 in the emergency department as well as 1 L bolus 1 upon arriving to the floor Tylenol 650mg PO q4h PRN fever Monitor on telemetry Vitals every 4 hours (2) Bacteremia due to Gram-negative bacteria ICD Codes: R78.81 - Bacteremia Plan: Treatment as per sepsis above (3) Acute renal failure ICD Codes: N17.9 - Acute kidney failure, unspecified Status: Acute Plan: Creatinine slowly improving Likely due to hypoperfusion from sepsis and bacteremia Renal Ultrasound demonstrated asymmetry, right smaller than left. no evidence of hydronephrosis. Nephrology consulted, recommendations appreciated Repeat UA improved from prior Urine culture 04/27 NGTD Quantify proteinuria Renal function panel pending Avoid nephrotoxic agents (4) Chronic respiratory failure ICD Codes: J96.10 - Chronic respiratory failure, unspecified whether with hypoxia or hypercapnia Status: Acute Plan: On home 4.5L NC, hx of GOPAL on bipap at home Pulmonology consulted for worsening SOB, appreciated recommendations Continue BiPap with sleep and as needed basis Continue antibiotics as above Continue home Qvar 80mcg inh and prednisone 20mg PO daily Duoneb q4h scheduled CPT Previous work up: Repeat CXR on 04/27 showed chronic elevation right hemidiaphragm with right basal atelectasis BNP wnl Lactic acid improved 0.6 from 1.1 (5) Weakness ICD Codes: R53.1 - Weakness Plan: s/p fall, please refer to Dr. Joseph's note regarding fall CT head negative Neurochecks q4h ordered Ammonia less than 10, Vit B12 1514, TSH wnl (6) History of seizures ICD Codes: Z87.898 - History of seizure Status: Acute Plan: Subtherapeutic phenytoin at 8.0 -EEG demonstrated mild to moderate slowing may be due to encephalopathic process , may be due to patient's febrile illness, but no epileptiform features -Continue phenytoin to 200 mg p.o. twice daily (increased from 200 mg nightly, 100 mg every morning) -Continue home trileptal 150mg PO bid (7) Right shoulder pain ICD Codes: M25.511 - Pain in right shoulder Plan: R shoulder X-ray negative for fracture or dislocation Pain most likely MSK related Physical therapy consulted to evaluate patient (8) Right eyelid laceration ICD Codes: S01.111A - Laceration without foreign body of right eyelid and periocular area, initial encounter Plan: Laceration repaired by ED physician. (9) Hypothyroidism ICD Codes: E03.9 - Hypothyroidism Status: Chronic Plan: -continue home levothyroxine 50mcg (M,,Th, F,Sat), 200mcg (Sun, Sun) (10) Hyperlipidemia ICD Codes: E78.5 - Hyperlipidemia Status: Chronic Plan: Continue home Pravastatin 80mg PO hs (11) Hypertension ICD Codes: I10 - Hypertension Status: Chronic Plan: Held home Enalapril due to RISA Amlodipine 10mg PO daily Clonidine 0.1mg PO q12hr (12) Depression ICD Codes: F32.9 - Major depressive disorder, single episode, unspecified Plan: Continue home Lexapro 20mg PO daily (13) Nutrition, metabolism, and development symptoms ICD Codes: R63.8 - Other symptoms and signs concerning food and fluid intake Plan: Diet: Regular Fluids: none due to concern for fluid overload Electrolytes: monitor vitals q4h, monitor I & Os DVT ppx: heparin 5000 units q12hr PT requested, will need PT at rehab (Leni Gaytan MD R1) Problem Qualifiers (1) Acute renal failure: Qualified Codes: N17.9 - Acute kidney failure, unspecified Leni Gaytan MD R1 Apr 30, 2017 09:08 Adrian Cruz MD Apr 30, 2017 16:45
--- NOTE | 2017-04-30 10:56 | HHI.NPPN ---
Subjective Renal Failure: Acute Interval History Labs from today are unavailable. She has no concerns today. BP still elevated. (Kasandra Whitman) Review of Systems General Constitutional: Fatigue (Kasandra Whitman) Respiratory Respiratory Remarks Denies any SOB (Kasandra Whitman) Cardiovascular Cardiac Remarks Denies any CP (Kasandra Whitman) Gastrointestinal GI Remarks Denies any abdominal pain (Kasandra Whitman) Objective Data Data Vital Signs Date Time Temp Pulse Resp B/P (MAP) Pulse Ox O2 Delivery O2 Flow Rate FiO2 04/30/17 08:00 Nasal Cannula 4.00 Humidified 04/30/17 08:00 98.5 78 22 175/93 (120) 99 04/30/17 08:00 81 04/30/17 04:00 3.00 04/30/17 04:00 98.1 78 20 161/97 (118) 98 04/30/17 04:00 58 04/30/17 02:08 98 Nasal Cannula 3.00 04/30/17 00:00 Nasal Cannula 3.00 04/30/17 00:00 74 04/30/17 00:00 98.1 86 20 161/97 (118) 99 04/29/17 20:00 3.00 04/29/17 20:00 77 04/29/17 20:00 98.6 78 20 176/96 (122) 100 04/29/17 16:00 98.4 83 16 190/96 (127) 99 04/29/17 15:59 84 04/29/17 12:00 98.4 84 16 189/91 (123) 99 04/29/17 12:00 87 (Kasandra Whitman) -: 04/30/17 0620 04/29/17 1605 Physical Exam General Appearance: Well Developed, No Acute Distress, Comfortable, Obese (Kasandra Whitman) Eyes Eye Exam: Pupils Equal (Kasandra Whitman) Neck Neck Exam: Neck Supple (Kasandra Whitman) Pulmonary Resp Exam: Breath Sounds Equal, No Distress, Decreased Bases (Kasandra Whitman) Cardiology CV Exam: Regular (Kasandra Whitman) Gastrointestinal/Abdomen GI Exam: Soft, Non-Tender (Kasandra Whitman) Genitourinary Exam: Flank Non-Tender (Kasandra Whitman) Musculoskeletal MS Exam: Joints Intact, Normal Tone (Kasandra Whitman) Integumentary Skin Exam: Warm, Dry (Kasandra Whitman) Extremeties Extremities Exam: Pedal Pulses Palpable, Trace Edema (Kasandra Whitman) Neurologic Neuro Exam: Alert, Awake, Oriented (Kasandra Whitman) Psychiatric Psych Exam: Appropriate Responses (Kasandra Whitman) Assessment/Plan Discussed Condition With: Patient Assessment Summary: RISA/Acute Renal Failure Problem List: (1) Acute renal failure ICD Codes: N17.9 - Acute kidney failure, unspecified Status: Acute Plan: Creatinine was around 1 in 2016 RISA most likely ATN from sepsis US shows right kidney is smaller 1.42 g proteinuria in a non diabetic. Serologies are in process. She is non oliguric. Repeat labs are in process. Avoid nephrotoxic agents. (2) Sepsis ICD Codes: A41.9 - Sepsis, unspecified organism Status: Acute Plan: Urosepsis, Klebsiella On Rocephin, Zosyn stopped WBC trending down Continue supportive care (3) UTI (urinary tract infection) ICD Codes: N39.0 - Urinary tract infection, site not specified Status: Acute Plan: See above (4) Chronic obstructive pulmonary disease with acute exacerbation ICD Codes: J44.1 - Acute exacerbation of chronic obstructive airways disease Status: Acute Plan: Chronic oxygen therapy Follow respiratory status (5) Hypertension ICD Codes: I10 - Hypertension Status: Chronic Plan: On norvasc, start clonidine consider DINA or ARB prior to discharge (Kasandra Whitman) Plan patient was seen and examined. Renal function continues to improve. She can be discharged from renal standpoint. Agree with above assessment and plan. (Yusef Glez MD) Problem Qualifiers (1) Acute renal failure: Qualified Codes: N17.9 - Acute kidney failure, unspecified (2) Sepsis: Qualified Codes: A41.9 - Sepsis, unspecified organism (3) UTI (urinary tract infection): Qualified Codes: N39.0 - Urinary tract infection, site not specified; R31.9 - Hematuria, unspecified Kasandra Whitman Apr 30, 2017 10:56 Yusef Glez MD Apr 30, 2017 19:23
[2017-04-30] MEDS: cloNIDine HCL 0.1 MG TAB PO SCH ×2 (11:12→21:51)
[2017-04-30 13:00] LABS: ANA SCREEN NEG (NEG)
[2017-04-30] MEDS: cefTRIAXone INJ 1,000 MG in SODIUM CHLORIDE 0.9% INJ 100 ML IV SCH (13:18)
[2017-04-30 15:19] LABS: HEPATITIS B SURFACE ANTIGEN NEGATIVE (NEGATIVE)
[2017-04-30 16:10] LABS: ALBUMIN 2.2 GM/DL (3.4-5.0); ALT (GPT) 33 U/L (10-53); AST (GOT) 45 U/L (15-37); BICARBONATE 25.6 MEQ/L (21.0-32.0); CHLORIDE 104 MEQ/L (98-107); CREATININE 1.83 MG/DL (0.50-1.00); GLOMERULAR FILTRATION RATE 28 ML/MIN (>89); GLUCOSE,RANDOM 99 MG/DL (74-106); SODIUM (NA) 138 MEQ/L (136-145)
[2017-04-30 16:11] LABS: BLOOD UREA NITROGEN 45 MG/DL (7-18)
[2017-04-30 16:13] LABS: ALKALINE PHOSPHATASE 146 U/L (45-117); TOTAL BILIRUBIN ADULT 0.2 MG/DL (0.2-1.0); TOTAL PROTEIN 6.4 GM/DL (6.4-8.2)
--- NOTE | 2017-04-30 19:15 | HHI.PR ---
Subjective Remarks feels better no sob using her trilogy Objective Vital Signs Date Time Temp Pulse Resp B/P (MAP) Pulse Ox O2 Delivery O2 Flow Rate FiO2 04/30/17 16:00 66 04/30/17 16:00 97.7 72 22 171/96 (121) 99 04/30/17 12:00 97.5 80 22 161/90 (113) 99 04/30/17 12:00 73 04/30/17 08:00 Nasal Cannula 4.00 Humidified 04/30/17 08:00 98.5 78 22 175/93 (120) 99 04/30/17 08:00 81 04/30/17 04:00 3.00 04/30/17 04:00 98.1 78 20 161/97 (118) 98 04/30/17 04:00 58 04/30/17 02:08 98 Nasal Cannula 3.00 04/30/17 00:00 Nasal Cannula 3.00 04/30/17 00:00 74 04/30/17 00:00 98.1 86 20 161/97 (118) 99 04/29/17 20:00 3.00 04/29/17 20:00 77 04/29/17 20:00 98.6 78 20 176/96 (122) 100 I/O 04/29/17 04/29/17 04/29/17 04/30/17 04/30/17 04/30/17 07:00 15:00 23:00 07:00 15:00 23:00 Intake Total 480 ml 480 ml 420 ml Output Total 400 ml 1001 ml 500 ml Balance -400 ml -1001 ml 480 ml 480 ml -80 ml Intake Oral 480 ml 480 ml 420 ml Output Urine Total 400 ml 1000 ml 500 ml Stool Total 1 ml # Voids 3 2 3 # Bowel Movements 3 Result Diagram: 04/30/17 0620 04/30/17 1458 Objective Remarks PHYSICAL EXAMINATION GENERAL APPEARANCE: Obese. In no acute distress, laying in bed comfortably. NECK: Trachea midline. LUNGS: Mild basilar crackles. HEART: Normal S1 and S2. ABDOMEN: Morbidly obese but soft, nontender. EXTREMITIES: Positive pitting edema. No cyanosis. NEUROLOGIC: Awake. She follows my commands. Assessment and Plan Assessment and Plan ASSESSMENT AND PLAN 1. COPD. 2. Respiratory acidosis. 3. Chronic hypoxemia. 4. Sleep apnea. 5. Morbid obesity. 6. Hypertension. 7. Hyperkalemia. 8. Renal failure. I do believe overall the patient is doing okay from a pulmonary perspective. I would recommend cont using her Trilogy machine that hse has from home wean off FIO2 for O2 sat more than or equal to 90%. ic I would recommend to continue DuoNeb and prednisone with the current dose 20 mg per day. rec switch to sejal abx if possible She is ok to go home from my perspective. she needs follow up with Dr Melton . Dong Gary MD Apr 30, 2017 19:15
[2017-04-30] MEDS: PRAVASTATIN SOD 80 MG TAB PO SCH (21:50)
[2017-05-01] VITALS (10 sets, daily range): BP systolic 138–174; BP diastolic 72–92; PULSE 55–74; RESP 16–22; TEMP 97.6–99.1; O2SAT 98–100
[2017-05-01] MEDS: ACETAMINOPHEN/HYDROcodone 325 MG/5 MG TAB PO PRN ×5 (05:07→21:22)
[2017-05-01] MEDS: LEVOTHYROXINE SODIUM 50 MCG TAB PO SCH (05:07)
[2017-05-01] MEDS: BECLOMETHASONE DIPROPIONATE 80 MCG/ACT 8.7 GM INHALER INH SCH ×2 (08:52→21:21)
[2017-05-01] MEDS: ESCITALOPRAM OXALATE 20 MG TAB PO SCH (08:52)
[2017-05-01] MEDS: predniSONE 20 MG TAB PO SCH (08:52)
[2017-05-01] MEDS: PHENYTOIN SODIUM 100 MG CAP PO SCH ×2 (08:52→21:22)
[2017-05-01] MEDS: cloNIDine HCL 0.1 MG TAB PO SCH (08:52)
[2017-05-01] MEDS: OXcarbazepine 150 MG TAB PO SCH ×2 (08:52→21:21)
[2017-05-01] MEDS: SODIUM CHLORIDE 0.9% FLUSH 10 ML FLUSH IV FLUSH SCH ×2 (08:53→21:21)
[2017-05-01] MEDS: HEPARIN SODIUM - SQ 10,000 UNITS/ML VIAL SQ SCH ×2 (08:53→21:22)
--- NOTE | 2017-05-01 09:09 | HHI.FPPN ---
Subjective Remarks No acute events overnight. Pt sitting up in recliner. Currently on 4L NC. States that she is doing well this morning. Reports that she is more alert and awake. Reports that she did not get placed on Bipap last night. She said she woke up around 4:30 am and realized it. No complaints this AM. Denies CP, SOB, abdominal pain, and N/V. (Leni Gaytan MD R1) Objective Vitals Vital Signs Date Time Temp Pulse Resp B/P (MAP) Pulse Ox O2 Delivery O2 Flow Rate FiO2 05/01/17 08:40 100 Nasal Cannula 4.00 05/01/17 05:35 98.5 64 16 151/92 (111) 100 05/01/17 04:30 68 05/01/17 00:00 55 04/30/17 20:00 63 04/30/17 20:00 98.0 67 16 168/92 (117) 99 04/30/17 20:00 Nasal Cannula 4.00 Humidified 04/30/17 19:54 Nasal Cannula 4.00 04/30/17 16:00 66 04/30/17 16:00 97.7 72 22 171/96 (121) 99 04/30/17 12:00 97.5 80 22 161/90 (113) 99 04/30/17 12:00 73 I/O 04/30/17 04/30/17 04/30/17 05/01/17 05/01/17 05/01/17 07:00 15:00 23:00 07:00 15:00 23:00 Intake Total 480 ml 420 ml 0 ml Output Total 500 ml 800 ml Balance 480 ml -80 ml -800 ml Intake Oral 480 ml 420 ml 0 ml Output Urine Total 500 ml 800 ml # Voids 2 3 # Bowel Movements 3 1 (Leni Gaytan MD R1) Result Diagram: 04/30/17 0620 04/30/17 1458 Objective Remarks GENERAL: obese F, sitting in recliner, on 3L o2 NC, in NAD SKIN: small bruise on right upper eye- stitches in place, no acute bleeding, healing, few area of ecchymosis on upper extremities EYES: Pupils dilated, reactive to light CARDIOVASCULAR: Regular rate and rhythm without murmurs, gallops, or rubs. RESPIRATORY: decreased air movement and bowel sounds in R lung base, expected since pt has hemidiaphragm on R side based on CXR, lung exam improved from prior GASTROINTESTINAL: Abdomen soft, non-tender, nondistended. No hepato-splenomegaly , or palpable masses. No guarding. MUSCULOSKELETAL: trace pitting edema b/l NEUROLOGICAL: alert, awake, oriented x3, CNII-XII intact. Strength 4/5 in upper extremities. Strength 3/5 in lower extremities. Sensation intact throughout. (Leni Gaytan MD R1) A/P Assessment and Plan 57 yr old F w/ PMHx of status epilepticus and pseudotumor cerebri s/p [employer] shunt placement 2012 presents via EMS for lethargy. Discharge Planning Clinically improving Will need PT at rehab Possible discharge tomorrow (Leni Gaytan MD R1) Attending Attestation Pt. examined and case reviewed with resident physician I have read the above note and agree with the assessment/plan as discussed with me I was involved in all medical decision making for this patient Adrian Cruz MD (Adrian Cruz MD) Problem List: (1) Sepsis secondary to UTI ICD Codes: A41.9 - Sepsis, unspecified organism; N39.0 - Urinary tract infection, site not specified Plan: Patient meets sepsis criteria with being febrile, tachycardia, leukocytosis and known source of infection with UTI as well as bacteremia Lactic acid 1.1 Blood cultures and urine culture positive for Klebsiella, pansensitive, drawn on 04/24/17 -Repeat blood cultures ordered 04/25/17-NGTD -Repeat urine culture ordered 04/27 NGTD Antibiotics: Start PO Ciprofloxacin 500mg q12h (05/01-) Discontinued Rocephin 1,000 mg IV q24h (started 04/26-05/01) Discontinued Zosyn 3.375 g IV every 6 hours (04/25-04/26) IV fluids- discontinued due to concern for fluid overload -Received 1 L bolus 3 in the emergency department as well as 1 L bolus 1 upon arriving to the floor Tylenol 650mg PO q4h PRN fever Monitor on telemetry Vitals every 4 hours (2) Bacteremia due to Gram-negative bacteria ICD Codes: R78.81 - Bacteremia Plan: Treatment as per sepsis above (3) Acute renal failure ICD Codes: N17.9 - Acute kidney failure, unspecified Status: Acute Plan: Improving Likely due to hypoperfusion from sepsis and bacteremia Renal Ultrasound demonstrated asymmetry, right smaller than left. no evidence of hydronephrosis. 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 Joseph's note regarding fall CT head negative Neurochecks q4h ordered Ammonia less than 10, Vit B12 1514, TSH wnl (6) History of seizures ICD Codes: Z87.898 - History of seizure Status: Acute Plan: Subtherapeutic phenytoin at 8.0 -EEG demonstrated mild to moderate slowing may be due to encephalopathic process , may be due to patient's febrile illness, but no epileptiform features -Continue phenytoin to 200 mg p.o. twice daily (increased from 200 mg nightly, 100 mg every morning) -Continue home trileptal 150mg PO bid (7) Right shoulder pain ICD Codes: M25.511 - Pain in right shoulder Plan: R shoulder X-ray negative for fracture or dislocation Pain most likely MSK related Physical therapy consulted to evaluate patient (8) Right eyelid laceration ICD Codes: S01.111A - Laceration without foreign body of right eyelid and periocular area, initial encounter Plan: Laceration repaired by ED physician. (9) Hypothyroidism ICD Codes: E03.9 - Hypothyroidism Status: Chronic Plan: -continue home levothyroxine 50mcg (M,Tu,Th, F,Sat), 200mcg (Sun, Wed) (10) Hyperlipidemia ICD Codes: E78.5 - Hyperlipidemia Status: Chronic Plan: Continue home Pravastatin 80mg PO hs (11) Hypertension ICD Codes: I10 - Hypertension Status: Chronic Plan: Held home Enalapril due to RISA Amlodipine 10mg PO daily Increase Clonidine 0.1mg to 0.2mg PO q12hr (12) Depression ICD Codes: F32.9 - Major depressive disorder, single episode, unspecified Plan: Continue home Lexapro 20mg PO daily (13) Nutrition, metabolism, and development symptoms ICD Codes: R63.8 - Other symptoms and signs concerning food and fluid intake Plan: Diet: Regular Fluids: none due to concern for fluid overload Electrolytes: monitor vitals q4h, monitor I & Os DVT ppx: heparin 5000 units q12hr PT requested, will need PT at rehab (Leni Gaytan MD R1) Problem Qualifiers (1) Acute renal failure: Qualified Codes: N17.9 - Acute kidney failure, unspecified Leni Gaytan MD R1 May 01, 2017 09:09 Adrian Cruz MD May 01, 2017 16:28
[2017-05-01 09:11] LABS: HEMATOCRIT 31.7 % (35.0-46.0); HEMOGLOBIN 10.3 GM/DL (11.6-15.3); MEAN CELL VOLUME 89.9 FL (80.0-100.0); MEAN CORPUSCULAR HEMOGLOBIN 29.3 PG (27.0-34.0); MEAN CORPUSCULAR HGB CONC 32.5 % (32.0-36.0); MEAN PLATELET VOLUME 8.5 FL (7.0-11.0); PLATELET COUNT 337 TH/MM3 (150-450); RED BLOOD COUNT 3.52 MIL/MM3 (4.00-5.30); RED CELL DISTRIBUTION WIDTH 14.4 % (11.6-17.2); WHITE BLOOD COUNT 12.2 TH/MM3 (4.0-11.0)
[2017-05-01 09:35] LABS: BICARBONATE 30.5 MEQ/L (21.0-32.0); CALCIUM 8.2 MG/DL (8.5-10.1); CREATININE 1.74 MG/DL (0.50-1.00)
[2017-05-01] MEDS: CIPROFLOXACIN 500 MG TAB PO SCH ×2 (13:12→21:21)
[2017-05-01] MEDS: PRAVASTATIN SOD 80 MG TAB PO SCH (21:21)
[2017-05-01] MEDS: cloNIDine HCL 0.2 MG TAB PO SCH (21:22)
[2017-05-02] VITALS (7 sets, daily range): BP systolic 114–162; BP diastolic 61–87; PULSE 55–73; RESP 14–19; TEMP 98.1–98.4; O2SAT 97–100
[2017-05-02] MEDS: LEVOTHYROXINE SODIUM 50 MCG TAB PO SCH (05:09)
[2017-05-02] MEDS: ACETAMINOPHEN/HYDROcodone 325 MG/5 MG TAB PO PRN ×2 (05:09→09:45)
[2017-05-02 09:23] LABS: HEMATOCRIT 29.9 % (35.0-46.0); HEMOGLOBIN 9.8 GM/DL (11.6-15.3); MEAN CELL VOLUME 90.1 FL (80.0-100.0); MEAN CORPUSCULAR HEMOGLOBIN 29.4 PG (27.0-34.0); MEAN CORPUSCULAR HGB CONC 32.7 % (32.0-36.0); MEAN PLATELET VOLUME 8.1 FL (7.0-11.0); PLATELET COUNT 373 TH/MM3 (150-450); RED BLOOD COUNT 3.32 MIL/MM3 (4.00-5.30); RED CELL DISTRIBUTION WIDTH 14.3 % (11.6-17.2); WHITE BLOOD COUNT 13.2 TH/MM3 (4.0-11.0)
[2017-05-02] MEDS: BECLOMETHASONE DIPROPIONATE 80 MCG/ACT 8.7 GM INHALER INH SCH (09:44)
[2017-05-02] MEDS: CIPROFLOXACIN 500 MG TAB PO SCH (09:45)
[2017-05-02] MEDS: PHENYTOIN SODIUM 100 MG CAP PO SCH (09:45)
[2017-05-02] MEDS: ESCITALOPRAM OXALATE 20 MG TAB PO SCH (09:45)
[2017-05-02] MEDS: SODIUM CHLORIDE 0.9% FLUSH 10 ML FLUSH IV FLUSH SCH (09:45)
[2017-05-02] MEDS: OXcarbazepine 150 MG TAB PO SCH (09:45)
[2017-05-02] MEDS: cloNIDine HCL 0.2 MG TAB PO SCH (09:45)
[2017-05-02] MEDS: predniSONE 20 MG TAB PO SCH (09:46)
[2017-05-02] MEDS: HEPARIN SODIUM - SQ 10,000 UNITS/ML VIAL SQ SCH (09:46)
[2017-05-02 10:03] LABS: CALCIUM 8.5 MG/DL (8.5-10.1); CREATININE 1.5 MG/DL (0.50-1.00)
--- NOTE | 2017-05-02 10:09 | HHI.NPPN ---
Subjective Renal Failure: Acute Interval History Renal function is better. Potential discharge to rehab. (Kasandra Whitman) Review of Systems General Constitutional: Fatigue (Kasandra Whitman) Respiratory Respiratory Remarks Denies any SOB (Kasandra Whitman) Cardiovascular Cardiac Remarks Denies any CP (Kasandra Whitman) Gastrointestinal GI Remarks Denies any abdominal pain (Kasandra Whitman) Objective Data Data Vital Signs Date Time Temp Pulse Resp B/P (MAP) Pulse Ox O2 Delivery O2 Flow Rate FiO2 05/02/17 08:28 98.4 70 18 155/75 (101) 99 05/02/17 07:43 97 Nasal Cannula 4.00 05/02/17 04:00 63 05/02/17 04:00 98.2 73 16 162/87 (112) 97 05/02/17 01:11 Room Air 05/02/17 00:00 55 05/02/17 00:00 98.1 69 14 126/69 (88) 98 05/01/17 22:00 Bi-Pap 05/01/17 20:00 68 05/01/17 20:00 Nasal Cannula 4.00 Humidified 05/01/17 20:00 99.1 74 16 155/77 (103) 99 05/01/17 19:39 98 Nasal Cannula 4.00 05/01/17 16:00 60 05/01/17 16:00 98.0 70 20 140/72 (94) 99 05/01/17 12:00 97.6 64 20 138/75 (96) 98 05/01/17 12:00 60 05/01/17 10:13 70 (Kasandra Whitman) -: 05/02/17 0840 05/02/17 0840 Physical Exam General Appearance: Well Developed, No Acute Distress, Comfortable, Obese (Kasandra Whitman) Eyes Eye Exam: Pupils Equal (Kasandra Whitman) Neck Neck Exam: Neck Supple (Kasandra Whitman) Pulmonary Resp Exam: Breath Sounds Equal, No Distress, Decreased Bases (Kasandra Whitman) Cardiology CV Exam: Regular (Kasandra Whitman) Gastrointestinal/Abdomen GI Exam: Soft, Non-Tender (Kasandra Whitman) Genitourinary Exam: Flank Non-Tender (Kasandra Whitman) Musculoskeletal MS Exam: Joints Intact, Normal Tone (Kasandra Whitman) Integumentary Skin Exam: Warm, Dry (Kasandra Whitman) Extremeties Extremities Exam: Pedal Pulses Palpable, Trace Edema (Kasandra Whitman) Neurologic Neuro Exam: Alert, Awake, Oriented (Kasandra Whitman) Psychiatric Psych Exam: Appropriate Responses (Kasandra Whitman) Assessment/Plan Discussed Condition With: Patient Assessment Summary: RISA/Acute Renal Failure Problem List: (1) Acute renal failure ICD Codes: N17.9 - Acute kidney failure, unspecified Status: Acute Plan: Creatinine was around 1 in 2016 RISA most likely ATN from sepsis, renal hypoperfusion US shows right kidney is smaller, no obstruction Renal function improved. She is non oliguric, stable from renal perspective. (2) Sepsis ICD Codes: A41.9 - Sepsis, unspecified organism Status: Acute Plan: On PO cipro Clinically improved (3) UTI (urinary tract infection) ICD Codes: N39.0 - Urinary tract infection, site not specified Status: Acute Plan: See above (4) Chronic obstructive pulmonary disease with acute exacerbation ICD Codes: J44.1 - Acute exacerbation of chronic obstructive airways disease Status: Acute Plan: Chronic oxygen therapy Follow respiratory status GOPAL on CPAP at night Plan We will sign off at this time. (Kasandra Whitman) Plan patient was seen and examined. Agree with above assessment and plan. (Yusef Glez MD) Problem Qualifiers (1) Acute renal failure: Qualified Codes: N17.9 - Acute kidney failure, unspecified (2) Sepsis: Qualified Codes: A41.9 - Sepsis, unspecified organism (3) UTI (urinary tract infection): Qualified Codes: N39.0 - Urinary tract infection, site not specified; R31.9 - Hematuria, unspecified Kasandra Whitman May 02, 2017 10:09 Yusef Glez MD May 02, 2017 20:57
[2017-05-02] MEDS ORDERED: CIPR-9 PO (11:46)
[2017-05-02] MEDS ORDERED: AMLO10 PO (11:46)
[2017-05-02] MEDS ORDERED: CLON.2 PO (11:46)
--- NOTE | 2017-05-02 11:49 | HHI.DCPOC ---
Discharge Care Plan Diagnosis: (1) Bacteremia due to Gram-negative bacteria Goals to Promote Your Health * To prevent worsening of your condition and complications * To maintain your health at the optimal level Directions to Meet Your Goals Take your medications as prescribed Follow your dietary instruction Follow activity as directed Keep your appointments as scheduled Take your immunizations and boosters as scheduled If your symptoms worsen call your PCP, if no PCP go to Urgent Care Center or Emergency Room Smoking is Dangerous to Your Health. Avoid second hand smoke Call the 24-hour hour crisis hotline for domestic abuse at Leni Gaytan MD R1 May 02, 2017 11:48
[2017-05-02] MEDS ORDERED: OXYGENDME NAS.CANULA (11:54)
[2017-05-02] MEDS ORDERED: CPAP (11:56)
--- NOTE | 2017-05-02 11:56 | HHI.DS ---
Discharge Summary Admission Date Apr 24, 2017 at 18:07 Admitting Diagnosis sepsis, UTI, acute renal failure, leukocytosis (1) Sepsis secondary to UTI Plan: Patient meets sepsis criteria with being febrile, tachycardia, leukocytosis and known source of infection with UTI as well as bacteremia Lactic acid 1.1 Blood cultures and urine culture positive for Klebsiella, pansensitive, drawn on 04/24/17 -Repeat blood cultures ordered 04/25/17-NGTD -Repeat urine culture ordered 04/27 NGTD Antibiotics: Start PO Ciprofloxacin 500mg q12h (05/01-) Discontinued Rocephin 1,000 mg IV q24h (started 04/26-05/01) Discontinued Zosyn 3.375 g IV every 6 hours (04/25-04/26) IV fluids- discontinued due to concern for fluid overload -Received 1 L bolus 3 in the emergency department as well as 1 L bolus 1 upon arriving to the floor Tylenol 650mg PO q4h PRN fever Monitor on telemetry Vitals every 4 hours ICD Codes: A41.9 - Sepsis, unspecified organism; N39.0 - Urinary tract infection, site not specified (2) Bacteremia due to Gram-negative bacteria Plan: Treatment as per sepsis above ICD Codes: R78.81 - Bacteremia (3) Acute renal failure Plan: Improving Likely due to hypoperfusion from sepsis and bacteremia Renal Ultrasound demonstrated asymmetry, right smaller than left. no evidence of hydronephrosis. Nephrology consulted, recommendations appreciated Repeat UA improved from prior Urine culture 04/27 NGTD Avoid nephrotoxic agents ICD Codes: N17.9 - Acute kidney failure, unspecified Status: Acute (4) Chronic respiratory failure Plan: On home 4.5L NC, hx of GOPAL on bipap at home Pulmonology signing off, will follow up outpatient Continue BiPap with sleep and as needed basis Continue antibiotics as above Continue home Qvar 80mcg inh and prednisone 20mg PO daily Duoneb q4h scheduled CPT Previous work up: Repeat CXR on 04/27 showed chronic elevation right hemidiaphragm with right basal atelectasis BNP wnl Lactic acid improved 0.6 from 1.1 ICD Codes: J96.10 - Chronic respiratory failure, unspecified whether with hypoxia or hypercapnia Status: Acute (5) Weakness Plan: s/p fall, please refer to Dr. Joseph's note regarding fall CT head negative Neurochecks q4h ordered Ammonia less than 10, Vit B12 1514, TSH wnl ICD Codes: R53.1 - Weakness (6) History of seizures Plan: Subtherapeutic phenytoin at 8.0 -EEG demonstrated mild to moderate slowing may be due to encephalopathic process , may be due to patient's febrile illness, but no epileptiform features -Continue phenytoin to 200 mg p.o. twice daily (increased from 200 mg nightly, 100 mg every morning) -Continue home trileptal 150mg PO bid ICD Codes: Z87.898 - History of seizure Status: Acute (7) Right shoulder pain Plan: R shoulder X-ray negative for fracture or dislocation Pain most likely MSK related Physical therapy consulted to evaluate patient ICD Codes: M25.511 - Pain in right shoulder (8) Right eyelid laceration Plan: Laceration repaired by ED physician. ICD Codes: S01.111A - Laceration without foreign body of right eyelid and periocular area, initial encounter (9) Hypothyroidism Plan: -continue home levothyroxine 50mcg (,,Th, F,Sat), 200mcg (Sun, Wed) ICD Codes: E03.9 - Hypothyroidism Status: Chronic (10) Hyperlipidemia Plan: Continue home Pravastatin 80mg PO hs ICD Codes: E78.5 - Hyperlipidemia Status: Chronic (11) Hypertension Plan: Held home Enalapril due to RISA Amlodipine 10mg PO daily Increase Clonidine 0.1mg to 0.2mg PO q12hr ICD Codes: I10 - Hypertension Status: Chronic (12) Depression Plan: Continue home Lexapro 20mg PO daily ICD Codes: F32.9 - Major depressive disorder, single episode, unspecified (13) Nutrition, metabolism, and development symptoms Plan: Diet: Regular Fluids: none due to concern for fluid overload Electrolytes: monitor vitals q4h, monitor I & Os DVT ppx: heparin 5000 units q12hr PT requested, will need PT at rehab ICD Codes: R63.8 - Other symptoms and signs concerning food and fluid intake Brief History Patient was febrile overnight with a T-max of 101.5 Fahrenheit and she complains of some shortness of breath and worsening low back pain. She remains tachycardic with heart rate ranging from 92-126. She denies any chest pain or palpitations. She denies any new episodes of lightheadedness or dizziness or syncope/near syncope. He states that she was unable to sleep last night due to her back pain and not being comfortable in her bed. Blood cultures did return with 3/4 positive for gram-negative rods In summary, this is a 57 yr old F w/ PMHx of status epilepticus and pseudotumor cerebri s/p [employer] shunt placement 2013 presents via EMS for lethargy. She states that she began having generalized malaise and fatigue for 1 week that is associated with weakness and falls at home. She fell yesterday and hit her head /right eye on the corner of a television console resulting in a laceration near her right eye. She also complains of right shoulder pain after her fall at home. She was able to contact her PCP who sent over home health nurse with subsequent call to EMS to have her transferred to the emergency department. CBC/BMP: 05/02/17 0840 05/02/17 0840 Significant Findings Laboratory Tests Test 04/29/17 16:05 04/30/17 06:20 04/30/17 10:15 04/30/17 14:58 Blood Urea Nitrogen 49 MG/DL (7-18) 45 MG/DL (7-18) Creatinine 2.07 MG/DL (0.50-1.00) 1.83 MG/DL (0.50-1.00) Sodium Level 134 MEQ/L (136-145) Potassium Level 5.2 MEQ/L (3.5-5.1) Estimat Glomerular Filtration Rate 25 ML/MIN (>89) 28 ML/MIN (>89) White Blood Count 13.6 TH/MM3 (4.0-11.0) Red Blood Count 3.42 MIL/MM3 (4.00-5.30) Hemoglobin 10.0 GM/DL (11.6-15.3) Hematocrit 30.6 % (35.0-46.0) Neutrophils (%) (Auto) 78.2 % (16.0-70.0) Lymphocytes (%) (Auto) 8.7 % (9.0-44.0) Monocytes (%) (Auto) 11.7 % (0.0-8.0) Neutrophils # (Auto) 10.6 TH/MM3 (1.8-7.7) Monocytes # (Auto) 1.6 TH/MM3 (0-0.9) Band Neutrophils % 14 % (0-6) Neutrophils # (Manual) 11.3 TH/MM3 (1.8-7.7) Metamyelocytes 5 % (0-1) Myelocytes 3 % (0-0) Toxic Granulation 1+ (NORMAL) Toxic Vacuolation PRESENT (NONE SEEN) Platelet Morphology Comment ENLARGED (NORMAL) Ovalocytes 1+ (NORMAL) Blood Gas HCO3 27 mmol/L (22-26) Arterial Blood pH 7.29 (7.380-7.420) Arterial Blood Partial Pressure CO2 58 mmHg (38-42) Arterial Blood Partial Pressure O2 127 mmHg (61-120) Blood Gas Hemoglobin 9.9 G/DL (12.0-16.0) Albumin 2.2 GM/DL (3.4-5.0) Calcium Level 8.0 MG/DL (8.5-10.1) Alkaline Phosphatase 146 U/L (45-117) Aspartate Amino Transf (AST/SGOT) 45 U/L (15-37) Test 05/01/17 08:25 05/02/17 08:40 White Blood Count 12.2 TH/MM3 (4.0-11.0) 13.2 TH/MM3 (4.0-11.0) Red Blood Count 3.52 MIL/MM3 (4.00-5.30) 3.32 MIL/MM3 (4.00-5.30) Hemoglobin 10.3 GM/DL (11.6-15.3) 9.8 GM/DL (11.6-15.3) Hematocrit 31.7 % (35.0-46.0) 29.9 % (35.0-46.0) Blood Urea Nitrogen 39 MG/DL (7-18) 34 MG/DL (7-18) Creatinine 1.74 MG/DL (0.50-1.00) 1.50 MG/DL (0.50-1.00) Calcium Level 8.2 MG/DL (8.5-10.1) Estimat Glomerular Filtration Rate 30 ML/MIN (>89) 36 ML/MIN (>89) PE at Discharge GENERAL: obese F, sitting in recliner, on 3L o2 NC, in NAD SKIN: small bruise on right upper eye- stitches in place, no acute bleeding, healing, few area of ecchymosis on upper extremities EYES: Pupils dilated, reactive to light CARDIOVASCULAR: Regular rate and rhythm without murmurs, gallops, or rubs. RESPIRATORY: decreased air movement and bowel sounds in R lung base, expected since pt has hemidiaphragm on R side based on CXR, lung exam improved from prior GASTROINTESTINAL: Abdomen soft, non-tender, nondistended. No hepato-splenomegaly , or palpable masses. No guarding. MUSCULOSKELETAL: trace pitting edema b/l NEUROLOGICAL: alert, awake, oriented x3, CNII-XII intact. Strength 4/5 in upper extremities. Strength 3/5 in lower extremities. Sensation intact throughout. Leni Gaytan MD R1 May 02, 2017 11:56
--- NOTE | 2017-05-02 15:56 | HHI.FPPN ---
Subjective Remarks No acute events overnight. Pt sitting up in recliner this AM, on 4L NC. States that she doing well. Excited about going to [facility] for Rehab. No complaints this AM. Denies CP, SOB, abdominal pain, and N/V. (Leni Gaytan MD R1) Objective Vitals Vital Signs Date Time Temp Pulse Resp B/P (MAP) Pulse Ox O2 Delivery O2 Flow Rate FiO2 05/02/17 12:10 98.4 61 19 114/61 (78) 100 05/02/17 12:00 Nasal Cannula 4.00 05/02/17 08:28 98.4 70 18 155/75 (101) 99 05/02/17 08:00 Nasal Cannula 4.00 05/02/17 07:53 70 05/02/17 07:43 97 Nasal Cannula 4.00 05/02/17 04:00 63 05/02/17 04:00 98.2 73 16 162/87 (112) 97 05/02/17 01:11 Room Air 05/02/17 00:00 55 05/02/17 00:00 98.1 69 14 126/69 (88) 98 05/01/17 22:00 Bi-Pap 05/01/17 20:00 68 05/01/17 20:00 Nasal Cannula 4.00 Humidified 05/01/17 20:00 99.1 74 16 155/77 (103) 99 05/01/17 19:39 98 Nasal Cannula 4.00 05/01/17 16:00 60 05/01/17 16:00 98.0 70 20 140/72 (94) 99 I/O 05/01/17 05/01/17 05/01/17 05/02/17 05/02/17 05/02/17 07:00 15:00 23:00 07:00 15:00 23:00 Intake Total 0 ml 420 ml Output Total 800 ml 2600 ml 1230 ml Balance -800 ml -2180 ml -1230 ml Intake Oral 0 ml 420 ml Output Urine Total 800 ml 2600 ml 1230 ml # Bowel Movements 1 1 (Leni Gaytan MD R1) Result Diagram: 05/02/17 0840 05/02/17 0840 Objective Remarks GENERAL: obese F, sitting in recliner, on 4L o2 NC, in NAD SKIN: small bruise on right upper eye- stitches in place, no acute bleeding, healing, few area of ecchymosis on upper extremities EYES: Pupils dilated, reactive to light CARDIOVASCULAR: Regular rate and rhythm without murmurs, gallops, or rubs. RESPIRATORY: decreased air movement and bowel sounds in R lung base, expected since pt has hemidiaphragm on R side based on CXR, lung exam improved from prior GASTROINTESTINAL: Abdomen soft, non-tender, nondistended. No hepato-splenomegaly , or palpable masses. No guarding. MUSCULOSKELETAL: trace pitting edema b/l NEUROLOGICAL: alert, awake, oriented x3, CNII-XII intact. Strength 4/5 in upper extremities. Strength 3/5 in lower extremities. Sensation intact throughout. (Leni Gaytan MD R1) A/P Assessment and Plan 57 yr old F w/ PMHx of status epilepticus and pseudotumor cerebri s/p SAMPLER TESTER shunt placement 2012 presents via EMS for lethargy. Discharge Planning Clinically improving Will need PT at rehab Discharge today (Leni Gaytan MD R1) Attending Attestation Patient seen and examined. Case reviewed and discussed with the resident team. Agree with plan of care as discussed with me and documented in the resident note. she is eager to go on to the next phase where she builds her strength and goes to rehab (Kasandra Boston MD) Problem List: (1) Sepsis secondary to UTI ICD Codes: A41.9 - Sepsis, unspecified organism; N39.0 - Urinary tract infection, site not specified Plan: Patient meets sepsis criteria with being febrile, tachycardia, leukocytosis and known source of infection with UTI as well as bacteremia Lactic acid 1.1 Blood cultures and urine culture positive for Klebsiella, pansensitive, drawn on 04/24/17 -Repeat blood cultures ordered 04/25/17-NGTD -Repeat urine culture ordered 04/27 NGTD Antibiotics: Continue PO Ciprofloxacin 500mg q12h (started 05/01) for 4 days Discontinued Rocephin 1,000 mg IV q24h (started 04/26-05/01) Discontinued Zosyn 3.375 g IV every 6 hours (04/25-04/26) IV fluids- discontinued due to concern for fluid overload -Received 1 L bolus 3 in the emergency department as well as 1 L bolus 1 upon arriving to the floor Tylenol 650mg PO q4h PRN fever Monitor on telemetry Vitals every 4 hours (2) Bacteremia due to Gram-negative bacteria ICD Codes: R78.81 - Bacteremia Plan: Treatment as per sepsis above (3) Acute renal failure ICD Codes: N17.9 - Acute kidney failure, unspecified Status: Acute Plan: Improving Likely due to hypoperfusion from sepsis and bacteremia Renal Ultrasound demonstrated asymmetry, right smaller than left. no evidence of hydronephrosis. 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 Joseph's note regarding fall CT head negative Neurochecks q4h ordered Ammonia less than 10, Vit B12 1514, TSH wnl (6) History of seizures ICD Codes: Z87.898 - History of seizure Status: Acute Plan: Subtherapeutic phenytoin at 8.0 -EEG demonstrated mild to moderate slowing may be due to encephalopathic process , may be due to patient's febrile illness, but no epileptiform features -Continue phenytoin to 200 mg p.o. twice daily (increased from 200 mg nightly, 100 mg every morning) -Continue home trileptal 150mg PO bid (7) Right shoulder pain ICD Codes: M25.511 - Pain in right shoulder Plan: R shoulder X-ray negative for fracture or dislocation Pain most likely MSK related Physical therapy consulted to evaluate patient (8) Right eyelid laceration ICD Codes: S01.111A - Laceration without foreign body of right eyelid and periocular area, initial encounter Plan: Laceration repaired by ED physician. (9) Hypothyroidism ICD Codes: E03.9 - Hypothyroidism Status: Chronic Plan: -continue home levothyroxine 50mcg (,,Th, ,Sun), 200mcg (Sun, Sun) (10) Hyperlipidemia ICD Codes: E78.5 - Hyperlipidemia Status: Chronic Plan: Continue home Pravastatin 80mg PO hs (11) Hypertension ICD Codes: I10 - Hypertension Status: Chronic Plan: Held home Enalapril due to RISA Amlodipine 10mg PO daily Continue Clonidine 0.1mg to 0.2mg PO q12hr, consider weaning at rehab (12) Depression ICD Codes: F32.9 - Major depressive disorder, single episode, unspecified Plan: Continue home Lexapro 20mg PO daily (13) Nutrition, metabolism, and development symptoms ICD Codes: R63.8 - Other symptoms and signs concerning food and fluid intake Plan: Diet: Regular Fluids: none due to concern for fluid overload Electrolytes: monitor vitals q4h, monitor I & Os DVT ppx: heparin 5000 units q12hr PT requested, will need PT at rehab (Leni Gaytan MD R1) Problem Qualifiers (1) Acute renal failure: Qualified Codes: N17.9 - Acute kidney failure, unspecified Leni Gaytan MD R1 May 02, 2017 15:56 Kasandra Boston MD May 03, 2017 13:47
[2017-05-02 21:56] LABS: ALB/GLOB RATIO (SPE) 0.8 (1.39-2.23)
== END 2017-05-02 14:07 | DRG 871 ==
LOC: NEPC 15:34 → NEDA 18:07 → N04A 20:10
PROVIDERS: ADMIT Family Medicine; ATTEND Family Medicine
PROC: 0HQ1XZZ Repair Face Skin, External Approach (ICD-10-PCS; principal; 2017-04-24)
DX: A41.4 Sepsis due to anaerobes (principal); N17.0 Acute kidney failure with tubular necrosis; E87.2 Acidosis; N17.9 Acute kidney failure, unspecified; J96.11 Chronic respiratory failure with hypoxia; N39.0 Urinary tract infection, site not specified; J44.1 Chronic obstructive pulmonary disease with (acute) exacerbation; Z68.41 Body mass index [BMI] 40.0-44.9, adult; I10 Essential (primary) hypertension; S01.81XA Laceration without foreign body of other part of head, initial encounter; G40.909 Epilepsy, unspecified, not intractable, without status epilepticus; G93.2 Benign intracranial hypertension; M25.511 Pain in right shoulder; E03.9 Hypothyroidism, unspecified; E78.5 Hyperlipidemia, unspecified; G47.00 Insomnia, unspecified; E66.01 Morbid (severe) obesity due to excess calories; G47.33 Obstructive sleep apnea (adult) (pediatric); E87.5 Hyperkalemia; R65.20 Severe sepsis without septic shock; R29.6 Repeated falls; F31.9 Bipolar disorder, unspecified; F41.9 Anxiety disorder, unspecified; W18.39XA Other fall on same level, initial encounter; Z88.2 Allergy status to sulfonamides; Z88.6 Allergy status to analgesic agent; Z91.011 Allergy to milk products; Z98.2 Presence of cerebrospinal fluid drainage device; Z99.81 Dependence on supplemental oxygen
CPT/HCPCS: 12011; 36600; 70450; 71045; 71046; 73030; 76775; 80048; 80053; 80069; 80185; 81001; 82140; 82550; 82552; 82570; 82607; 82805; 82948; 83605; 83735; 83880; 84156; 84165; 84443; 84484; 85007; 85027; 85610; 85730; 86021; 86038; 86160; 86317; 86335; 87040; 87077; 87086; 87186; 87205; 87340; 87493; 87804; 90714; 93005; 94002; 94003; 94150; 94640; 94664; 94667; 94668; 95819; 96360; 96361; J0696; J1644; J1940; J2543; J7030; J7040; J7512; P9612

== ENCOUNTER → 2017-05-28 | Outpatient (CLI) | payer MEDICARE, MEDICAID ==
[~2017-05-28] MED LIST changes: -ACET500C PO; +AMLO10 PO; +CIPR-9 PO; +CLON.2 PO; +CPAP; +OXYGENDME NAS.CANULA; +PHEN200C3 PO; -SIMV20TA PO
== END ==
LOC: PLAB 08:56
PROVIDERS: ATTEND Psychiatry & Neurology Neurology
DX: R56.9 Unspecified convulsions (principal)
CPT/HCPCS: 36415; 80177; 80185

== ENCOUNTER → 2017-06-06 | Outpatient (CLI) | payer MEDICARE, MEDICAID ==
[2017-06-06 10:29] LABS: HEMATOCRIT 31.8 % (35.0-46.0); HEMOGLOBIN 10.5 GM/DL (11.6-15.3); MEAN CELL VOLUME 90.8 FL (80.0-100.0); MEAN CORPUSCULAR HEMOGLOBIN 30.1 PG (27.0-34.0); MEAN CORPUSCULAR HGB CONC 33.2 % (32.0-36.0); MEAN PLATELET VOLUME 8.1 FL (7.0-11.0); PLATELET COUNT 225 TH/MM3 (150-450); RED CELL DISTRIBUTION WIDTH 14.5 % (11.6-17.2); WHITE BLOOD COUNT 7.7 TH/MM3 (4.0-11.0)
[2017-06-06 10:35] LABS: ALBUMIN 3.5 GM/DL (3.4-5.0); AST (GOT) 16 U/L (15-37); BICARBONATE 30.3 MEQ/L (21.0-32.0); BLOOD UREA NITROGEN 25 MG/DL (7-18); CALCIUM 8.7 MG/DL (8.5-10.1); CHLORIDE 104 MEQ/L (98-107); CREATININE 1.48 MG/DL (0.50-1.00); GLOMERULAR FILTRATION RATE 36 ML/MIN (>89); GLUCOSE,FASTING 78 MG/DL (74-99); SODIUM (NA) 141 MEQ/L (136-145)
[2017-06-06 10:40] LABS: ALKALINE PHOSPHATASE 98 U/L (45-117); ALT (GPT) 31 U/L (10-53); TOTAL BILIRUBIN ADULT 0.2 MG/DL (0.2-1.0); TOTAL PROTEIN 6.7 GM/DL (6.4-8.2)
[2017-06-06 10:46] LABS: BACTERIA, URINE RARE /hpf; BILIRUBIN, URINE NEG (NEG); BLOOD, URINE NEG (NEG); GLUCOSE,URINE NEG (NEG); KETONE, URINE NEG (NEG); NITRITE,URINE NEG (NEG); PH, URINE 5.5 (5.0-8.5); SQUAMOUS EPITHELIAL CELL URINE 1 /hpf (0-5); URINE COLOR LIGHT-YELLOW (YELLW/STRAW); URINE LEUKOCYTE ESTERASE NEG (NEG)
== END ==
LOC: PLAB 07:33
PROVIDERS: ATTEND Internal Medicine Critical Care Medicine
DX: N39.0 Urinary tract infection, site not specified (principal); R53.81 Other malaise; R53.83 Other fatigue
CPT/HCPCS: 36415; 80053; 81001; 85027

== ENCOUNTER → 2017-06-27 | Outpatient (CLI) | payer MEDICARE, MEDICAID | LOC: PLAB 06:55 | PROVIDERS: ATTEND Psychiatry & Neurology Neurology | DX: R56.9 Unspecified convulsions (principal) | CPT/HCPCS: 36415; 80185 ==

== ENCOUNTER → 2017-08-29 | Outpatient (CLI) | payer MEDICARE, MEDICAID | LOC: PLAB 10:42 | PROVIDERS: ATTEND Psychiatry & Neurology Neurology | DX: G40.909 Epilepsy, unspecified, not intractable, without status epilepticus (principal) | CPT/HCPCS: 36415; 80177; 80185 ==